=== PATIENT | male | born 1960 | race African-American/Black ===

== ENCOUNTER 2017-08-31 14:23 | Inpatient (IN) | payer OTHER ==
[2017-08-31 16:48] VITALS: BMI 22.6
--- NOTE | 2017-08-31 17:43 | HP ---
CIWA Score - CIWA Score Nausea/Vomitin Muscle Tremors: 2 Anxiety: 5 Agitation: 4-Moderately Restless Paroxysmal Sweats: 1-Minimal Palms Moist Orientation: 0-Oriented Tacttile Disturbances: 0-None Auditory Disturbances: 0-None Visual Disturbances: 0-None Headache: 1-Very Mild CIWA-Ar Total Score: 16 Admission ROS BHS - HPI Chief Complaint: ALCOHOL WITHDRAWAL SX Allergies/Adverse Reactions: Allergies Allergy/AdvReac Type Severity Reaction Status Date / Time No Known Allergies Allergy Verified 08/31/17 17:32 History of Present Illness: 57 Y/O AA/MALE WITH A HX OF ALCOHOL DEPENDENCE ON METHADONE MAINTENANCE SEEKING DETOX TX. PT'S FIRST TIME HERE. Exam Limitations: No Limitations - Ebola screening Have you traveled outside of the country in the last 21 days: No Have you had contact with anyone from an Ebola affected area: No Have you been sick,other than usual withdrawal symptoms: No Do you have a fever: No - Review of Systems Constitutional: Chills, Night Sweats, Changes in sleep, Unintentional Wgt. Loss EENT: reports: Blurred Vision, Tearing, Dental Problems (NO UPPER TEETH/LOWER JAWS. BOTTOM DENTURES IN PLACE.) Respiratory: reports: No Symptoms reported Cardiac: reports: Lightheadedness GI: reports: Diarrhea, Nausea, Vomiting : reports: No Symptoms Reported Musculoskeletal: reports: Back Pain, Joint Pain, Muscle Pain Integumentary: reports: No Symptoms Reported Neuro: reports: Headache, Tremors, Unsteady Gait, Dizziness Endocrine: reports: No Symptoms Reported Hematology: reports: No Symptoms Reported Psychiatric: reports: Orientated x3, Anxious Other Systems: Reviewed and Negative Patient History - Patient Medical History Hx Anemia: No Hx Asthma: No Hx Chronic Obstructive Pulmonary Disease (COPD): No Hx Cardiac Disorders: No Hx Hypertension: Yes (ENALAPRIL) Hx Hypercholesterolemia: No HX Cerebrovascular Accident: No Hx Seizures: Yes (WITHDRAWAL SEIZURES - LAST EPISODE A WK AGO) Hx Diabetes: No Hx Gastrointestinal Disorders: No Hx Genitourinary Disorders: No Hx Sexually Transmitted Disorders: No (DENIES) Hx Renal Disease (ESRD): No Hx Thyroid Disease: No Hx Human Immunodeficiency Virus (HIV): No (NEGATIVE HX) Hx Hepatitis C: Yes Hx Depression: Yes (AND ANXIETY) Hx Suicide Attempt: No (DENIES) Hx Schizophrenia: No - Patient Surgical History Past Surgical History: No Hx Neurologic Surgery: No Hx Cataract Extraction: No Hx Cardiac Surgery: No Hx Lung Surgery: No Hx Breast Surgery: No Hx Breast Biopsy: No Hx Abdominal Surgery: No Hx Appendectomy: No Hx Cholecystectomy: No Hx Genitourinary Surgery: No Hx Orthopedic Surgery: No Anesthesia Reaction: No - PPD History Previous Implant?: Yes (HX PPD+) Documented Results: Positive w/proof Implanted On Prior R Admission?: No Results: CXR TBD PPD to be Administered?: No - Reproductive History Patient is a Female of Child Bearing Age (11 -55 yrs old): No (MALE) - Smoking Cessation Smoking history: Current every day smoker Have you smoked in the past 12 months: Yes Aproximately how many cigarettes per day: 30 Hx Chewing Tobacco Use: No Initiated information on smoking cessation: Yes 'Breaking Loose' booklet given: 08/31/17 - Substance & Tx. History Hx Alcohol Use: Yes (VODKA/BEER) Hx Substance Use: Yes (HEROIN) Substance Use Type: Alcohol, Heroin Hx Substance Use Treatment: Yes (CURRENTLY IN [facility]) - Substances Abused Alcohol Route: Oral Frequency: Daily Amount used: LIQUOR- 3 PINTS, BEER- 2 SIX PACK Age of first use: 19 Date of Last Use: 08/31/17 Family Disease History - Family Disease History Family Disease History: Other: Father (ETOH DEPENDENT AND ), Mother (ETOH DEPENDENT AND ) Admission Physical Exam S - Vital Signs Vital Signs: Vital Signs - 24 hr 08/31/17 16:46 Temperature 96.8 F L Pulse Rate 63 Respiratory 18 Rate Blood Pressure 161/84 - Physical General Appearance: Yes: Moderate Distress, Irritable, Anxious, Other (TIRED LOOKING) HEENTM: Yes: EOMI, Normocephalic, KRISTAN, Pharynx Normal Respiratory: Yes: Chest Non-Tender, Lungs Clear, Normal Breath Sounds, No Respiratory Distress Neck: Yes: Supple, Trachea in good position Breast: Yes: Breast Exam Deferred Cardiology: Yes: Regular Rhythm, Regular Rate, S1, S2 Abdominal: Yes: Normal Bowel Sounds, Non Tender, Flat, Soft Genitourinary: Yes: Other Back: Yes: Within Normal Limits Musculoskeletal: Yes: full range of Motion, Gait Steady Extremities: Yes: Normal Range of Motion, Non-Tender Neurological: Yes: cloth roll winder II-XII NML intact, Fully Oriented, Alert, Motor Strength 5/5 Integumentary: Yes: Dry, Warm Lymphatic: Yes: Within Normal Limits - Diagnostic (1) Hepatitis C Current Visit: Yes Status: Acute (2) Nicotine dependence Current Visit: Yes Status: Acute Qualifiers: Nicotine product type: cigarettes Substance use status: in withdrawal Qualified Code(s): F17.213 - Nicotine dependence, cigarettes, with withdrawal (3) HTN (hypertension) Current Visit: Yes Status: Chronic Qualifiers: Hypertension type: essential hypertension Qualified Code(s): I10 - Essential (primary) hypertension (4) Methadone maintenance therapy patient Current Visit: Yes Status: Chronic (5) Alcohol related seizure Current Visit: Yes Status: Suspected Cleared for Admission [facility] - Detox or Rehab [facility] Level of Care: Medically Managed Detox Regimen/Protocol: Librium [facility] Breath Alcohol Content Breath Alcohol Content: 0.279 Urine Drug Screen - Results Drug Screen Negative: No Urine Drug Screen Results: OPI-Opiates, BZO-Benzodiazepines, MTD-Methadone
[2017-08-31] MEDS ORDERED: MAGNESIUM HYDROX 2400MG/30ML ORAL SUSPENSION 30 ML CUP PO PRN (17:57)
[2017-08-31] MEDS ORDERED: MAGNESIUM CITRATE 300 ML BOTTLE PO PRN (17:57)
[2017-08-31] MEDS ORDERED: MAG HYDROX/AL HYDROX/SIMETH 30 ML UNIT-DOSE CUP PO PRN (17:57)
[2017-08-31] MEDS ORDERED: MENTHOL/PHENOL 1 EACH UD MM PRN (17:57)
[2017-08-31] MEDS ORDERED: NICOTINE POLACRILEX 4 MG GUM BC PRN (17:57)
[2017-08-31] MEDS ORDERED: IBUPROFEN 400 MG TABLET (FP) PO PRN (17:57)
[2017-08-31] MEDS ORDERED: LOPERAMIDE HCL 2 MG CAPSULE PO PRN (17:57)
[2017-08-31] MEDS ORDERED: guaiFENesin/D-METHORPHAN HB 10 ML UNIT-DOSE CUPS PO PRN (17:57)
[2017-08-31] MEDS ORDERED: ACETAMINOPHEN 325 MG TABLET (FP) PO PRN (17:57)
[2017-08-31] MEDS ORDERED: P-EPHED 60MG/TRIPROLIDI 2.5MG TABLET PO PRN (17:57)
[2017-08-31] MEDS ORDERED: chlordiazePOXIDE HCL 25 MG CAPSULE PO PRN (17:57)
[2017-08-31] MEDS ORDERED: chlordiazePOXIDE HCL 25 MG CAPSULE PO ONE (18:45)
[2017-08-31] MEDS ORDERED: MELATONIN 5 MG TABLETS PO PRN (22:00)
[2017-08-31] MEDS: NICOTINE 21 MG/24 HOURS TOPICAL PATCH TD SCH (22:16)
[2017-08-31] MEDS: THIAMINE HCL 100 MG TABLET (FP) PO SCH (22:18)
[2017-08-31] MEDS: ENALAPRIL MALEATE 10 MG TABLET (FP) PO SCH (22:18)
[2017-08-31] MEDS: chlordiazePOXIDE HCL 25 MG CAPSULE PO SCH (22:19)
[2017-09-01] MEDS: chlordiazePOXIDE HCL 25 MG CAPSULE PO SCH ×4 (05:36→22:13)
[2017-09-01 06:18] LABS: URINE APPEARANCE CLOUDY; URINE BLOOD NEGATIVE (NEGATIVE); URINE COLOR AMBER; URINE GLUCOSE (UA) NEGATIVE (NEGATIVE); URINE KETONE NEGATIVE (NEGATIVE); URINE LEUK ESTERASE TRACE (NEGATIVE); URINE NITRITE NEGATIVE (NEGATIVE); URINE UROBILINOGEN 4.0 E.U/dl mg/dL (0.2-1.0)
[2017-09-01 06:34] LABS: URINE PROTEIN 1+ (NEGATIVE)
[2017-09-01 07:02] LABS: CALCIUM OXALATE CRYSTALS FEW /hpf (NONE SEEN); EPI CELLS RARE /HPF (FEW); URINE HYALINE CAST 1 /lpf; URINE MUCUS RARE
[2017-09-01] MEDS ORDERED: METHADONE HCL 10 MG TABLET PO SCH (07:15)
[2017-09-01 10:10] LABS: HEMATOCRIT 34.5 % (35.4-49); HEMOGLOBIN 11.5 GM/dL (11.7-16.9); MCH 30.3 pg (25.7-33.7); MCHC 33.3 g/dl (32.0-35.9); MEAN CELL VOLUME 90.9 fl (80-96); PLATELET COUNT 76 K/MM3 (134-434); RBC 3.79 M/mm3 (4.00-5.60); RDW 13.9 % (11.9-15.9); WHITE BLOOD COUNT 4.2 K/mm3 (4.0-10.0)
[2017-09-01 10:30] LABS: ALBUMIN 2.5 g/dl (3.4-5.0); ALK PHOS 78 U/L (45-117); ANION GAP 6 (8-16); BILIRUBIN,TOTAL 1.5 mg/dL (0.2-1.0); BLOOD UREA NITROGEN 6 mg/dL (7-18); CALCIUM 8.1 mg/dL (8.5-10.1); CHLORIDE 107 mmol/L (98-107); CO2 30 mmol/L (21-32); CREATININE 0.7 mg/dL (0.7-1.3); GLUCOSE,RANDOM 104 mg/dL (74-106); POTASSIUM 3.4 mmol/L (3.5-5.1); SGOT/AST 212 U/L (15-37); SGPT/ALT 87 U/L (12-78); SODIUM 143 mmol/L (136-145); TOT PROT 6.7 g/dl (6.4-8.2)
[2017-09-01] MEDS: PRENATAL VITAMINS W/ FOLIC ACID TABLET (FP) PO SCH (10:30)
[2017-09-01] MEDS ORDERED: METHADONE HCL 10 MG TABLET ONE (10:31)
[2017-09-01] MEDS: PANTOPRAZOLE 40 MG TABLET (FP) PO SCH (10:32)
[2017-09-01] MEDS ORDERED: METHADONE HCL 40 MG DISPERSABLE TABLET ONE (10:32)
[2017-09-01] MEDS: NICOTINE 21 MG/24 HOURS TOPICAL PATCH TD SCH (10:33)
[2017-09-01] MEDS: METHADONE 40 MG, METHADONE 10 MG PO SCH (10:33)
[2017-09-01] MEDS: ENALAPRIL MALEATE 10 MG TABLET (FP) PO SCH (10:33)
--- NOTE | 2017-09-01 11:31 | EKG ---
Test Reason : Blood Pressure : / mmHG Vent. Rate : 063 BPM Atrial Rate : 063 BPM P-R Int : 148 ms QRS Dur : 088 ms QT Int : 420 ms P-R-T Axes : 052 -14 -03 degrees QTc Int : 429 ms NORMAL SINUS RHYTHM VOLTAGE CRITERIA FOR LEFT VENTRICULAR HYPERTROPHY ABNORMAL ECG NO PREVIOUS ECGS AVAILABLE Confirmed by TALA MILLS MD ([id number]) on 09/01/2017 11:31:36 AM Referred By: Confirmed By:TALA MILLS MD
--- NOTE | 2017-09-01 13:06 | PN ---
[facility] CIWA - CIWA Score Nausea/Vomitin-No Nausea/No Vomiting Muscle Tremors: 4-Moderate,w/Arms Extend Anxiety: 4-Mod. Anxious/Guarded Agitation: 3 Paroxysmal Sweats: 1-Minimal Palms Moist Orientation: 0-Oriented Tacttile Disturbances: 0-None Auditory Disturbances: 0-None Visual Disturbances: 0-None Headache: 0-None Present CIWA-Ar Total Score: 12 S Progress Note (SOAP) Subjective: ANXIETY,TREMORS,SWEATS,INTERMITTENT SLEEP, Objective: 09/01/17 13:05 Vital Signs Temperature 98.3 F 09/01/17 09:50 Pulse Rate 87 09/01/17 10:30 Respiratory Rate 18 09/01/17 10:30 Blood Pressure 135/77 09/01/17 09:50 O2 Sat by Pulse Oximetry (%) Laboratory Last Values WBC 4.2 K/mm3 (4.0-10.0) 09/01/17 07:30 RBC 3.79 M/mm3 (4.00-5.60) L 09/01/17 07:30 Hgb 11.5 GM/dL (11.7-16.9) L 09/01/17 07:30 Hct 34.5 % (35.4-49) L 09/01/17 07:30 MCV 90.9 fl (80-96) 09/01/17 07:30 MCH 30.3 pg (25.7-33.7) 09/01/17 07:30 MCHC 33.3 g/dl (32.0-35.9) 09/01/17 07:30 RDW 13.9 % (11.9-15.9) 09/01/17 07:30 Plt Count 76 K/MM3 (134-434) L D 09/01/17 07:30 MPV 12.0 fl (7.5-11.1) H 09/01/17 07:30 Manual Slide Review 09/01/17 07:30 Platelet Comment No clotting detected 09/01/17 07:30 Sodium 143 mmol/L (136-145) 09/01/17 07:30 Potassium 3.4 mmol/L (3.5-5.1) L 09/01/17 07:30 Chloride 107 mmol/L (98-107) 09/01/17 07:30 Carbon Dioxide 30 mmol/L (21-32) 09/01/17 07:30 Anion Gap 6 (8-16) L 09/01/17 07:30 BUN 6 mg/dL (7-18) L D 09/01/17 07:30 Creatinine 0.7 mg/dL (0.7-1.3) 09/01/17 07:30 Creat Clearance w eGFR > 60 (>60) 09/01/17 07:30 Random Glucose 104 mg/dL (74-106) D 09/01/17 07:30 Calcium 8.1 mg/dL (8.5-10.1) L 09/01/17 07:30 Total Bilirubin 1.5 mg/dL (0.2-1.0) H D 09/01/17 07:30 AST 212 U/L (15-37) H 09/01/17 07:30 ALT 87 U/L (12-78) H 09/01/17 07:30 Alkaline Phosphatase 78 U/L (45-117) D 09/01/17 07:30 Total Protein 6.7 g/dl (6.4-8.2) 09/01/17 07:30 Albumin 2.5 g/dl (3.4-5.0) L 09/01/17 07:30 Urine Color Beth 08/31/17 22:22 Urine Appearance Cloudy 08/31/17 22:22 Urine pH 6.0 (5.0-8.0) 08/31/17 22:22 Ur Specific [place] 1.024 (1.001-1.035) 08/31/17 22:22 Urine Protein 1+ (NEGATIVE) H 08/31/17 22:22 Urine Glucose (UA) Negative (NEGATIVE) 08/31/17 22:22 Urine Ketones Negative (NEGATIVE) 08/31/17 22:22 Urine Blood Negative (NEGATIVE) 08/31/17 22:22 Urine Nitrite Negative (NEGATIVE) 08/31/17 22:22 Urine Bilirubin 2.0 (<2.0 mg/dL) 08/31/17 22:22 Urine Urobilinogen 4.0 e.u/dl mg/dL (0.2-1.0) 08/31/17 22:22 Ur Leukocyte Esterase Trace (NEGATIVE) 08/31/17 22:22 Urine WBC (Auto) 10 /hpf (3-5) 08/31/17 22:22 Urine RBC (Auto) 5 /hpf (0-3) 08/31/17 22:22 Ur Epithelial Cells Rare /HPF (FEW) 08/31/17 22:22 Calcium Oxalate Crystal Few /hpf (NONE SEEN) 08/31/17 22:22 Hyaline Casts 1 /lpf 08/31/17 22:22 Urine Mucus Rare 08/31/17 22:22 RPR Titer Nonreactive (NONREACTIVE) 09/01/17 07:30 Assessment: 09/01/17 13:05 WITHDRAWAL SX Plan: CONTINUE DETOX INCREASE PO FLUIDS.
--- NOTE | 2017-09-01 16:04 | CONSULT ---
[facility] Psychiatric Consult - Data Date of interview: 09/01/17 Admission source: [facility] Identifying data: Readmission to [facility] for this 57 y/o AA male seeking detox treatment on for alcohol and heroin dependence.Patient is ,a father of six,homeless,unemployed and supported on food stamps. Substance Abuse History: Condfirmed by patient in this session.Details in current [facility] report : Smoking history: Current every day smoker. Have you smoked in the past 12 months: Yes. Aproximately how many cigarettes per day: 30. Hx Chewing Tobacco Use: No. Initiated information on smoking cessation: Yes. 'Breaking Loose' booklet given: 08/31/17. - Substance & Tx. History. Hx Alcohol Use: Yes (VODKA/BEER). Hx Substance Use: Yes (HEROIN). Substance Use Type: Alcohol, Heroin. Hx Substance Use Treatment: Yes (CURRENTLY IN [facility] - Substances Abused. Alcohol. Route: Oral. Frequency: Daily. Amount used: LIQUOR- 3 PINTS, BEER- 2 SIX PACK. Age of first use: 19. Date of Last Use: 08/31/17 Medical History: Hepatitis C,hypertension,GERD and a history of positive PPD ( treated). Psychiatric History: Diagnosed with Bipolar Disorder (self-report).Patient endorses a history of one psychiatric hospitalization (2017).Name of facility not recalled.Prescribed psychotropic medications but the patient is unable to disclose the name of the medication (s).Mr Manuel does,however, recall that he gets his outpatient psychiatric services at the [facility] in the [place].Denies history of suicide attempts.Currently on [facility] ([facility]. Physical/Sexual Abuse/Trauma History: Patient denies. Additional Comment: Urine Drug Screen Results: OPI-Opiates, BZO-Benzodiazepines , MTD-Methadone.Noted. Mental Status Exam - Mental Status Exam Alert and Oriented to: Time, Place, Person Cognitive Function: Grossly Intact Patient Appearance: Well Groomed Mood: Nervous, Withdrawn, Anxious Affect: Mood Congruent Patient Behavior: Fatigued, Cooperative (gives approximate answers) Speech Pattern: Clear Voice Loudness: Normal Thought Process: Goal Oriented Thought Disorder: Not Present Hallucinations: Denies Suicidal Ideation: Denies Homicidal Ideation: Denies Insight/Judgement: Poor Sleep: Well Appetite: Good Muscle strength/Tone: Normal Gait/Station: Normal Psychiatric Findings - Problem List ([place] 1, 2,3) (1) Opioid dependence on agonist therapy Current Visit: Yes Status: Acute (2) Alcohol dependence Current Visit: Yes Status: Acute (3) Nicotine dependence Current Visit: Yes Status: Acute Qualifiers: Nicotine product type: cigarettes Substance use status: in withdrawal Qualified Code(s): F17.213 - Nicotine dependence, cigarettes, with withdrawal (4) Bipolar disorder Current Visit: Yes Status: Chronic Comment: As per self-report.Questionable adherence to psychiatric OPD care. - Initial Treatment Plan Initial Treatment Plan: Psychoeducation.Detoxification treatment in progress.Review of pharmacy claims yields evidence of refill for risperdal 2 mg/ hs (05/04/17) at the [facility].Patient made aware of this finding.Agrees to resume risperdal.Will start with risperdal 1 mg po hs.Patient is made aware of risk of abnormal involuntary movements,dyskinesias,dystonias,sexual dysfunction (impotence),galactorrhea,gynecomastia and cardiovascular adverse events.No history of side effects from risperdal,as per self-report.Consent ( verbal) given for implementation of this careplan.Observation.
[2017-09-01] MEDS: THIAMINE HCL 100 MG TABLET (FP) PO SCH (22:13)
[2017-09-01] MEDS: risperiDONE 1 MG TABLET (FP) PO SCH (22:13)
[2017-09-02] MEDS: chlordiazePOXIDE HCL 25 MG CAPSULE PO SCH ×3 (05:17→18:21)
[2017-09-02] MEDS ORDERED: METHADONE HCL 10 MG TABLET ONE (07:50)
[2017-09-02] MEDS ORDERED: METHADONE HCL 40 MG DISPERSABLE TABLET ONE (07:51)
[2017-09-02] MEDS: METHADONE 40 MG, METHADONE 10 MG PO SCH (07:54)
[2017-09-02] MEDS: PANTOPRAZOLE 40 MG TABLET (FP) PO SCH (10:45)
[2017-09-02] MEDS: PRENATAL VITAMINS W/ FOLIC ACID TABLET (FP) PO SCH (10:45)
[2017-09-02] MEDS: ENALAPRIL MALEATE 10 MG TABLET (FP) PO SCH ×3 (10:45→22:05)
[2017-09-02] MEDS: NICOTINE 21 MG/24 HOURS TOPICAL PATCH TD SCH (10:45)
--- NOTE | 2017-09-02 13:40 | PN ---
[facility] CIWA - CIWA Score Nausea/Vomitin-No Nausea/No Vomiting Muscle Tremors: 4-Moderate,w/Arms Extend Anxiety: 4-Mod. Anxious/Guarded Agitation: 4-Moderately Restless Paroxysmal Sweats: 1-Minimal Palms Moist Orientation: 0-Oriented Tacttile Disturbances: 0-None Auditory Disturbances: 0-None Visual Disturbances: 0-None Headache: 0-None Present CIWA-Ar Total Score: 13 S Progress Note (SOAP) Subjective: ANXIETY,IRRITABILITY,SWEATS,CHILLS, FATIGUE. Objective: 09/02/17 13:42 Vital Signs 09/02/17 09/02/17 09/02/17 05:53 09:04 13:33 Temperature 98 F 95.5 F L 97.7 F Pulse Rate 71 74 68 Respiratory 18 18 18 Rate Blood Pressure 152/98 151/95 152/94 Laboratory Last Values WBC 4.2 K/mm3 (4.0-10.0) 09/01/17 07:30 RBC 3.79 M/mm3 (4.00-5.60) L 09/01/17 07:30 Hgb 11.5 GM/dL (11.7-16.9) L 09/01/17 07:30 Hct 34.5 % (35.4-49) L 09/01/17 07:30 MCV 90.9 fl (80-96) 09/01/17 07:30 MCH 30.3 pg (25.7-33.7) 09/01/17 07:30 MCHC 33.3 g/dl (32.0-35.9) 09/01/17 07:30 RDW 13.9 % (11.9-15.9) 09/01/17 07:30 Plt Count 76 K/MM3 (134-434) L D 09/01/17 07:30 MPV 12.0 fl (7.5-11.1) H 09/01/17 07:30 Manual Slide Review 09/01/17 07:30 Platelet Comment No clotting detected 09/01/17 07:30 Sodium 143 mmol/L (136-145) 09/01/17 07:30 Potassium 3.4 mmol/L (3.5-5.1) L 09/01/17 07:30 Chloride 107 mmol/L (98-107) 09/01/17 07:30 Carbon Dioxide 30 mmol/L (21-32) 09/01/17 07:30 Anion Gap 6 (8-16) L 09/01/17 07:30 BUN 6 mg/dL (7-18) L D 09/01/17 07:30 Creatinine 0.7 mg/dL (0.7-1.3) 09/01/17 07:30 Creat Clearance w eGFR > 60 (>60) 09/01/17 07:30 Random Glucose 104 mg/dL (74-106) D 09/01/17 07:30 Calcium 8.1 mg/dL (8.5-10.1) L 09/01/17 07:30 Total Bilirubin 1.5 mg/dL (0.2-1.0) H D 09/01/17 07:30 AST 212 U/L (15-37) H 09/01/17 07:30 ALT 87 U/L (12-78) H 09/01/17 07:30 Alkaline Phosphatase 78 U/L (45-117) D 09/01/17 07:30 Total Protein 6.7 g/dl (6.4-8.2) 09/01/17 07:30 Albumin 2.5 g/dl (3.4-5.0) L 09/01/17 07:30 Urine Color Beth 08/31/17 22:22 Urine Appearance Cloudy 08/31/17 22:22 Urine pH 6.0 (5.0-8.0) 08/31/17 22:22 Ur Specific [place] 1.024 (1.001-1.035) 08/31/17 22:22 Urine Protein 1+ (NEGATIVE) H 08/31/17 22:22 Urine Glucose (UA) Negative (NEGATIVE) 08/31/17 22:22 Urine Ketones Negative (NEGATIVE) 08/31/17 22:22 Urine Blood Negative (NEGATIVE) 08/31/17 22:22 Urine Nitrite Negative (NEGATIVE) 08/31/17 22: Urine Bilirubin 2.0 (<2.0 mg/dL) 08/31/17 22:22 Urine Urobilinogen 4.0 e.u/dl mg/dL (0.2-1.0) 08/31/17 22:22 Ur Leukocyte Esterase Trace (NEGATIVE) 08/31/17 22:22 Urine WBC (Auto) 10 /hpf (3-5) 08/31/17 22:22 Urine RBC (Auto) 5 /hpf (0-3) 08/31/17 22:22 Ur Epithelial Cells Rare /HPF (FEW) 08/31/17 22:22 Calcium Oxalate Crystal Few /hpf (NONE SEEN) 08/31/17 22:22 Hyaline Casts 1 /lpf 08/31/17 22:22 Urine Mucus Rare 08/31/17 22:22 RPR Titer Nonreactive (NONREACTIVE) 09/01/17 07:30 09/02/17 13:48 Assessment: 09/02/17 13:48 WITHDRAWAL SX Plan: CONTINUE DETOX CLONIDINE 0.1 MG PO NOW KLC LIQ 20 MEQ PO NOW THEN BID X 3 DAYS
[2017-09-02] MEDS ORDERED: POTASSIUM CHLORIDE ORAL LIQUID 20 MEQ/15 ML PO ONE (14:00)
[2017-09-02] MEDS ORDERED: cloNIDine HCL 0.1 MG TABLET PO ONE (14:00)
[2017-09-02] MEDS ORDERED: ENALAPRIL MALEATE 10 MG TABLET (FP) PO SCH (22:00)
[2017-09-02] MEDS: THIAMINE HCL 100 MG TABLET (FP) PO SCH (22:05)
[2017-09-02] MEDS: risperiDONE 1 MG TABLET (FP) PO SCH (22:05)
[2017-09-02] MEDS: chlordiazePOXIDE 5 MG CAPSULE PO SCH (22:05)
[2017-09-02] MEDS: POTASSIUM CHLORIDE ORAL LIQUID 20 MEQ/15 ML PO SCH (22:06)
[2017-09-03] MEDS ORDERED: METHADONE HCL 10 MG TABLET ONE (02:38)
[2017-09-03] MEDS ORDERED: METHADONE HCL 40 MG DISPERSABLE TABLET ONE (02:39)
[2017-09-03] MEDS ORDERED: cloNIDine HCL 0.1 MG TABLET PO ONE (06:41)
[2017-09-03] MEDS: METHADONE 40 MG, METHADONE 10 MG PO SCH (07:05)
[2017-09-03] MEDS: chlordiazePOXIDE 5 MG CAPSULE PO SCH ×2 (07:06→10:24)
[2017-09-03] MEDS: PANTOPRAZOLE 40 MG TABLET (FP) PO SCH (10:23)
[2017-09-03] MEDS: POTASSIUM CHLORIDE ORAL LIQUID 20 MEQ/15 ML PO SCH ×2 (10:23→22:10)
[2017-09-03] MEDS: PRENATAL VITAMINS W/ FOLIC ACID TABLET (FP) PO SCH (10:23)
[2017-09-03] MEDS: ENALAPRIL MALEATE 10 MG TABLET (FP) PO SCH ×2 (10:23→22:11)
[2017-09-03] MEDS: NICOTINE 21 MG/24 HOURS TOPICAL PATCH TD SCH (10:24)
--- NOTE | 2017-09-03 11:14 | PN ---
[facility] Progress Note (SOAP) Subjective: Anxious, Chills, Fatigue. Objective: PATIENT A & O X 3, OBSERVED AMBULATING ON UNIT. NO ACUTE DISTRESS. PATIENT DENIES CHEST PAIN. 09/03/17 11:09 Vital Signs Temperature 96.8 F L 09/03/17 09:09 Pulse Rate 115 H 09/03/17 09:09 Respiratory Rate 18 09/03/17 09:09 Blood Pressure 98/69 09/03/17 09:09 O2 Sat by Pulse Oximetry (%) Laboratory Tests 08/31/17 09/01/17 09/01/17 22:22 07:30 07:30 WBC 4.2 RBC 3.79 L Hgb 11.5 L Hct 34.5 L MCV 90.9 MCH 30.3 MCHC 33.3 RDW 13.9 Plt Count 76 L D MPV 12.0 H Manual Slide Review Platelet Comment No clotting detected Sodium 143 Potassium 3.4 L Chloride 107 Carbon Dioxide 30 Anion Gap 6 L BUN 6 L D Creatinine 0.7 Creat Clearance w eGFR > 60 Random Glucose 104 D Calcium 8.1 L Total Bilirubin 1.5 H D AST 212 H ALT 87 H Alkaline Phosphatase 78 D Total Protein 6.7 Albumin 2.5 L Urine Color Beth Urine Appearance Cloudy Urine pH 6.0 Ur Specific [place] 1.024 Urine Protein 1+ H Urine Glucose (UA) Negative Urine Ketones Negative Urine Blood Negative Urine Nitrite Negative Urine Bilirubin 2.0 Urine Urobilinogen 4.0 e.u/dl Ur Leukocyte Esterase Trace Urine WBC (Auto) 10 Urine RBC (Auto) 5 Ur Epithelial Cells Rare Calcium Oxalate Crystal Few Hyaline Casts 1 Urine Mucus Rare RPR Titer 09/01/17 07:30 WBC RBC Hgb Hct MCV MCH MCHC RDW Plt Count MPV Manual Slide Review Platelet Comment Sodium Potassium Chloride Carbon Dioxide Anion Gap BUN Creatinine Creat Clearance w eGFR Random Glucose Calcium Total Bilirubin AST ALT Alkaline Phosphatase Total Protein Albumin Urine Color Urine Appearance Urine pH Ur Specific [place] Urine Protein Urine Glucose (UA) Urine Ketones Urine Blood Urine Nitrite Urine Bilirubin Urine Urobilinogen Ur Leukocyte Esterase Urine WBC (Auto) Urine RBC (Auto) Ur Epithelial Cells Calcium Oxalate Crystal Hyaline Casts Urine Mucus RPR Titer Nonreactive LABS NOTED. Assessment: 09/03/17 11:10 WITHDRAWAL SYMPTOMS. HYPOKALEMIA. 09/03/17 11:12 Plan: CONTINUE DETOX. INCREASE DAILY PO FLUID INTAKE. CONTINUE K-DUR.
--- NOTE | 2017-09-03 15:33 | PN ---
[facility] Progress Note Note: Received report from Gen Patel RN that patient's BP is low (110/49) and that patient appears drowsy on unit. Remaining two doses of Librium for today HELD. Detox Librium doses to be resumed tomorrow AM pending evaluation by [employer] APPLIANCE [employer]SEMBLY SUPERVISOR / RN. Yocasta Montana NP
--- NOTE | 2017-09-03 17:06 | PN ---
[facility] Progress Note Note: Psychiatry Attending's note : Made aware of patient's sedated state. Chart reviewed.Patient examined at bedside. Mr Manuel is noted as slow,awake and conversant. Fully aware of his surroundings.Found sitting in bed. Quietly drinking some juice.Moves independently.Task-oriented. Patient does admit to " some dizziness." Appears well-related. Exhibits relevant,clear and coherent speech.Moves around his room. Gait improving.Steadier.Vitals have also improved (see 3 pm report).
[2017-09-03] MEDS: THIAMINE HCL 100 MG TABLET (FP) PO SCH (22:10)
[2017-09-04] MEDS ORDERED: METHADONE HCL 40 MG DISPERSABLE TABLET ONE (04:35)
[2017-09-04] MEDS ORDERED: METHADONE HCL 10 MG TABLET ONE (04:35)
[2017-09-04] MEDS: METHADONE 40 MG, METHADONE 10 MG PO SCH (05:20)
[2017-09-04] MEDS: chlordiazePOXIDE HCL 10 MG CAPSULE PO SCH ×4 (05:20→22:50)
[2017-09-04] MEDS: ENALAPRIL MALEATE 10 MG TABLET (FP) PO SCH ×2 (10:19→22:50)
[2017-09-04] MEDS: PANTOPRAZOLE 40 MG TABLET (FP) PO SCH (10:19)
[2017-09-04] MEDS: PRENATAL VITAMINS W/ FOLIC ACID TABLET (FP) PO SCH (10:19)
[2017-09-04] MEDS: NICOTINE 21 MG/24 HOURS TOPICAL PATCH TD SCH (10:19)
[2017-09-04] MEDS: POTASSIUM CHLORIDE ORAL LIQUID 20 MEQ/15 ML PO SCH ×2 (12:39→22:50)
--- NOTE | 2017-09-04 14:59 | PN ---
[facility] Progress Note (SOAP) Subjective: Fatigue, Sweating. Objective: PATIENT A & O X 3, OBSERVED AMBULATING ON UNIT. NO ACUTE DISTRESS. 09/04/17 14:57 Vital Signs Temperature 98.2 F 09/04/17 14:45 Pulse Rate 76 09/04/17 14:45 Respiratory Rate 18 09/04/17 14:45 Blood Pressure 118/74 09/04/17 14:45 O2 Sat by Pulse Oximetry (%) Laboratory Tests 08/31/17 09/01/17 09/01/17 22:22 07:30 07:30 WBC 4.2 RBC 3.79 L Hgb 11.5 L Hct 34.5 L MCV 90.9 MCH 30.3 MCHC 33.3 RDW 13.9 Plt Count 76 L D MPV 12.0 H Manual Slide Review Platelet Comment No clotting detected Sodium 143 Potassium 3.4 L Chloride 107 Carbon Dioxide 30 Anion Gap 6 L BUN 6 L D Creatinine 0.7 Creat Clearance w eGFR > 60 Random Glucose 104 D Calcium 8.1 L Total Bilirubin 1.5 H D AST 212 H ALT 87 H Alkaline Phosphatase 78 D Total Protein 6.7 Albumin 2.5 L Urine Color Beth Urine Appearance Cloudy Urine pH 6.0 Ur Specific [place] 1.024 Urine Protein 1+ H Urine Glucose (UA) Negative Urine Ketones Negative Urine Blood Negative Urine Nitrite Negative Urine Bilirubin 2.0 Urine Urobilinogen 4.0 e.u/dl Ur Leukocyte Esterase Trace Urine WBC (Auto) 10 Urine RBC (Auto) 5 Ur Epithelial Cells Rare Calcium Oxalate Crystal Few Hyaline Casts 1 Urine Mucus Rare RPR Titer 09/01/17 07:30 WBC RBC Hgb Hct MCV MCH MCHC RDW Plt Count MPV Manual Slide Review Platelet Comment Sodium Potassium Chloride Carbon Dioxide Anion Gap BUN Creatinine Creat Clearance w eGFR Random Glucose Calcium Total Bilirubin AST ALT Alkaline Phosphatase Total Protein Albumin Urine Color Urine Appearance Urine pH Ur Specific [place] Urine Protein Urine Glucose (UA) Urine Ketones Urine Blood Urine Nitrite Urine Bilirubin Urine Urobilinogen Ur Leukocyte Esterase Urine WBC (Auto) Urine RBC (Auto) Ur Epithelial Cells Calcium Oxalate Crystal Hyaline Casts Urine Mucus RPR Titer Nonreactive LABS NOTED. Assessment: 09/04/17 14:57 WITHDRAWAL SYMPTOMS. Plan: CONTINUE DETOX. INCREASE DAILY PO FLUID INTAKE. PATIENT SCHEDULED FOR D/C TOMORROW.
[2017-09-04] MEDS: THIAMINE HCL 100 MG TABLET (FP) PO SCH (22:50)
[2017-09-05] MEDS ORDERED: METHADONE HCL 40 MG DISPERSABLE TABLET ONE (04:32)
[2017-09-05] MEDS ORDERED: METHADONE HCL 10 MG TABLET ONE (04:32)
[2017-09-05] MEDS: METHADONE 40 MG, METHADONE 10 MG PO SCH (05:44)
[2017-09-05 06:44] VITALS: BP 151/86; PULSE 68; TEMP 97.8
--- NOTE | 2017-09-05 21:09 | PN ---
[facility] Progress Note (SOAP) Subjective: Patient denies current Detox symptoms and reports that he feels well overall. Objective: PATIENT A & O X 3, OBSERVED AMBULATING ON UNIT. NO ACUTE DISTRESS. 09/05/17 21:08 Vital Signs Temperature 97.8 F 09/05/17 06:43 Pulse Rate 68 09/05/17 06:43 Respiratory Rate 16 09/05/17 06:43 Blood Pressure 151/86 09/05/17 06:43 O2 Sat by Pulse Oximetry (%) Laboratory Tests 08/31/17 09/01/17 09/01/17 22:22 07:30 07:30 WBC 4.2 RBC 3.79 L Hgb 11.5 L Hct 34.5 L MCV 90.9 MCH 30.3 MCHC 33.3 RDW 13.9 Plt Count 76 L D MPV 12.0 H Manual Slide Review Platelet Comment No clotting detected Sodium 143 Potassium 3.4 L Chloride 107 Carbon Dioxide 30 Anion Gap 6 L BUN 6 L D Creatinine 0.7 Creat Clearance w eGFR > 60 Random Glucose 104 D Calcium 8.1 L Total Bilirubin 1.5 H D AST 212 H ALT 87 H Alkaline Phosphatase 78 D Total Protein 6.7 Albumin 2.5 L Urine Color Beth Urine Appearance Cloudy Urine pH 6.0 Ur Specific [place] 1.024 Urine Protein 1+ H Urine Glucose (UA) Negative Urine Ketones Negative Urine Blood Negative Urine Nitrite Negative Urine Bilirubin 2.0 Urine Urobilinogen 4.0 e.u/dl Ur Leukocyte Esterase Trace Urine WBC (Auto) 10 Urine RBC (Auto) 5 Ur Epithelial Cells Rare Calcium Oxalate Crystal Few Hyaline Casts 1 Urine Mucus Rare RPR Titer 09/01/17 07:30 WBC RBC Hgb Hct MCV MCH MCHC RDW Plt Count MPV Manual Slide Review Platelet Comment Sodium Potassium Chloride Carbon Dioxide Anion Gap BUN Creatinine Creat Clearance w eGFR Random Glucose Calcium Total Bilirubin AST ALT Alkaline Phosphatase Total Protein Albumin Urine Color Urine Appearance Urine pH Ur Specific [place] Urine Protein Urine Glucose (UA) Urine Ketones Urine Blood Urine Nitrite Urine Bilirubin Urine Urobilinogen Ur Leukocyte Esterase Urine WBC (Auto) Urine RBC (Auto) Ur Epithelial Cells Calcium Oxalate Crystal Hyaline Casts Urine Mucus RPR Titer Nonreactive LABS NOTED. Assessment: 09/05/17 21:08 COMPLETION OF DETOX REGIMEN. Plan: PATIENT SCHEDULED FOR DISCHARGE FROM DETOX UNIT TODAY.
--- NOTE | 2017-09-05 21:15 | DS ---
[facility] Detox Discharge Summary Admission Date: 08/31/17 Discharge Date: 09/05/17 - History Present History: Alcohol Dependence, Opioid Dependence, MMTP Additional Comments: PATIENT WILL RETURN TO [facility] ([place] FOR AFTERCARE. PATIENT WAS DISCHARGED FROM DETOX UNIT IN STABLE MEDICAL CONDITION. Pertinent Past History: History of Seizures (due to Withdrawal), HTN, Hep C, Nicotine Dependence, MMTP, Hypokalemia, Depression, Bipolar Disorder. - Physical Exam Results Vital Signs: Vital Signs Temperature 97.8 F 09/05/17 06:43 Pulse Rate 68 09/05/17 06:43 Respiratory Rate 16 09/05/17 06:43 Blood Pressure 151/86 09/05/17 06:43 O2 Sat by Pulse Oximetry (%) Pertinent Admission Physical Exam Findings: WITHDRAWAL SYMPTOMS. Laboratory Tests 08/31/17 09/01/17 09/01/17 22:22 07:30 07:30 WBC 4.2 RBC 3.79 L Hgb 11.5 L Hct 34.5 L MCV 90.9 MCH 30.3 MCHC 33.3 RDW 13.9 Plt Count 76 L D MPV 12.0 H Manual Slide Review Platelet Comment No clotting detected Sodium 143 Potassium 3.4 L Chloride 107 Carbon Dioxide 30 Anion Gap 6 L BUN 6 L D Creatinine 0.7 Creat Clearance w eGFR > 60 Random Glucose 104 D Calcium 8.1 L Total Bilirubin 1.5 H D AST 212 H ALT 87 H Alkaline Phosphatase 78 D Total Protein 6.7 Albumin 2.5 L Urine Color Beth Urine Appearance Cloudy Urine pH 6.0 Ur Specific [place] 1.024 Urine Protein 1+ H Urine Glucose (UA) Negative Urine Ketones Negative Urine Blood Negative Urine Nitrite Negative Urine Bilirubin 2.0 Urine Urobilinogen 4.0 e.u/dl Ur Leukocyte Esterase Trace Urine WBC (Auto) 10 Urine RBC (Auto) 5 Ur Epithelial Cells Rare Calcium Oxalate Crystal Few Hyaline Casts 1 Urine Mucus Rare RPR Titer 09/01/17 07:30 WBC RBC Hgb Hct MCV MCH MCHC RDW Plt Count MPV Manual Slide Review Platelet Comment Sodium Potassium Chloride Carbon Dioxide Anion Gap BUN Creatinine Creat Clearance w eGFR Random Glucose Calcium Total Bilirubin AST ALT Alkaline Phosphatase Total Protein Albumin Urine Color Urine Appearance Urine pH Ur Specific [place] Urine Protein Urine Glucose (UA) Urine Ketones Urine Blood Urine Nitrite Urine Bilirubin Urine Urobilinogen Ur Leukocyte Esterase Urine WBC (Auto) Urine RBC (Auto) Ur Epithelial Cells Calcium Oxalate Crystal Hyaline Casts Urine Mucus RPR Titer Nonreactive LABS NOTED. - Treatment Hospital Course: Detox Protocol Followed, Detoxed Safely, Responded well, Discharged Condition Good Patient has Accepted a Rehab Referral to: PT RETURNING TO [facility] ([place] FOR AFTERCARE. - Medication Discharge Medications: Ambulatory Orders Enalapril Maleate [Vasotec -] 10 mg PO DAILY 04/30/14 Lisinopril [Prinivil -] 10 mg PO DAILY 04/30/14 Omeprazole [Prilosec (RX)] 40 mg PO DAILY 04/30/14 - Diagnosis (1) Hepatitis C Status: Acute Qualifiers: Viral hepatitis chronicity: chronic Hepatic coma status: without hepatic coma Qualified Code(s): B18.2 - Chronic viral hepatitis C (2) Hypokalemia Status: Acute (3) Nicotine dependence Status: Acute Qualifiers: Nicotine product type: cigarettes Substance use status: in withdrawal Qualified Code(s): F17.213 - Nicotine dependence, cigarettes, with withdrawal (4) HTN (hypertension) Status: Chronic Qualifiers: Hypertension type: essential hypertension Qualified Code(s): I10 - Essential (primary) hypertension (5) Methadone maintenance therapy patient Status: Chronic (6) Alcohol related seizure Status: Suspected (7) Alcohol dependence Status: Acute Qualifiers: Substance use status: uncomplicated Qualified Code(s): F10.20 - Alcohol dependence, uncomplicated (8) Opioid dependence on agonist therapy Status: Acute (9) Bipolar disorder Status: Chronic Qualifiers: Active/Remission status: remission status unspecified Qualified Code(s): F31.9 - Bipolar disorder, unspecified - AMA Did Patient Leave Against Medical Advice: No
== END 2017-09-05 10:10 | disposition home or self-care (01) | DRG 773 ==
LOC: YASAS 14:23 → Y3N 17:57
PROVIDERS: ADMIT Internal Medicine; ATTEND Internal Medicine
PROC: HZ2ZZZZ Detoxification Services for Substance Abuse Treatment (ICD-10-PCS; principal; 2017-08-31)
DX: F10.230 Alcohol dependence with withdrawal, uncomplicated (principal); F11.20 Opioid dependence, uncomplicated; F17.213 Nicotine dependence, cigarettes, with withdrawal; F31.9 Bipolar disorder, unspecified; I10 Essential (primary) hypertension; B18.2 Chronic viral hepatitis C; E87.6 Hypokalemia; G40.89 Other seizures
CPT/HCPCS: 36415; 71046-TC-FY; 80053; 81003; 81015; 85027; 86593; 93005; 93010; J0735; J2794

== ENCOUNTER 2017-09-06 14:52 | Inpatient (IN) | payer OTHER ==
[2017-09-06 17:13] VITALS: BMI 22.8
--- NOTE | 2017-09-06 21:48 | HP ---
[facility] Rehab Assess/Revision - Admission History Admitted to Rehab from: [facility] Date of Admission to Rehab: 09/06/2017 - Vital signs Vital Signs: Vital Signs Period Temp Pulse Resp BP Sys/Ledbetter Pulse Ox Last 24 Hr 96 F 74 18 153/92 - Findings Detox History & Physical reviewed: Yes Concur with findings: Yes Comments/Additional Findings: CLIENT DC YESTERDAY AND NOW RETURNS FOR REHAB. INNA 0.032. MEDICALLY STABLE AND CLEARED FOR REHAB
[2017-09-06] MEDS ORDERED: MAGNESIUM CITRATE 300 ML BOTTLE PO PRN (21:53)
[2017-09-06] MEDS ORDERED: MAG HYDROX/AL HYDROX/SIMETH 30 ML UNIT-DOSE CUP PO PRN (21:53)
[2017-09-06] MEDS ORDERED: IBUPROFEN 400 MG TABLET (FP) PO PRN (21:53)
[2017-09-06] MEDS ORDERED: ACETAMINOPHEN 325 MG TABLET (FP) PO PRN (21:53)
[2017-09-06] MEDS ORDERED: guaiFENesin/D-METHORPHAN HB 10 ML UNIT-DOSE CUPS PO PRN (21:53)
[2017-09-06] MEDS ORDERED: NICOTINE POLACRILEX 2 MG GUM BUC PRN (21:53)
[2017-09-06] MEDS ORDERED: LOPERAMIDE HCL 2 MG CAPSULE PO PRN (21:53)
[2017-09-06] MEDS ORDERED: hydrOXYzine PAMOATE 50 MG CAPSULE (FP) PO PRN (21:53)
[2017-09-06] MEDS ORDERED: MENTHOL/PHENOL 1 EACH UD MM PRN (21:53)
[2017-09-06] MEDS ORDERED: P-EPHED 60MG/TRIPROLIDI 2.5MG TABLET PO PRN (21:53)
[2017-09-06] MEDS: THIAMINE HCL 100 MG TABLET (FP) PO SCH (23:39)
[2017-09-07] MEDS ORDERED: METHADONE HCL 10 MG TABLET PO SCH (07:30)
[2017-09-07] MEDS ORDERED: METHADONE HCL 40 MG DISPERSABLE TABLET ONE (07:47)
[2017-09-07] MEDS ORDERED: METHADONE HCL 10 MG TABLET ONE (07:47)
[2017-09-07] MEDS: METHADONE 40 MG, METHADONE 10 MG PO SCH (07:51)
[2017-09-07] MEDS: ENALAPRIL MALEATE 10 MG TABLET (FP) PO SCH (11:42)
[2017-09-07] MEDS: PRENATAL VITAMINS W/ FOLIC ACID TABLET (FP) PO SCH (11:42)
[2017-09-07] MEDS: NICOTINE 14 MG/24 HOURS TOPICAL PATCH TD SCH (11:42)
--- NOTE | 2017-09-07 11:55 | HP ---
Psychiatrist Admission - Data Date of interview: 09/07/17 Admission source: 3N Identifying data: This is the first 5N inpatient rehabilitation admission for this 57 year AA male who is father of six, currently homeless and unemployed supported on food stamps. Medical History: Hepatitis C,hypertension,GERD and a history of positive PPD ( treated). On MMTP 50 mg daily, smokes cigarettes 20 a day. Psychiatric History: Patient reports was diagnosed with Bipolar Disorder and a history of one psychiatric hospitalization last year. Treated with medications but the patient is unable to recall the name of the medication, states that he gets his outpatient psychiatric services at the [facility] in the [place]. Denies history of suicide attempts. Seen by who restarted on Risperdal 1 mg po hs, as per record was on Risperdal 2 mg po hs. Physical/Sexual Abuse/Trauma History: Patient denies history of sexual, physical and verbal abuse Vital Signs: Vital Signs - 24 hr 09/06/17 09/06/17 09/07/17 16:41 23:00 00:30 Temperature 96 F L 98.3 F Pulse Rate 74 74 Respiratory 18 18 18 Rate Blood Pressure 153/92 151/110 09/07/17 09/07/17 03:30 06:39 Temperature 98.8 F Pulse Rate 78 Respiratory 18 16 Rate Blood Pressure 144/98 Allergies/Adverse Reactions: Allergies Allergy/AdvReac Type Severity Reaction Status Date / Time No Known Allergies Allergy Verified 09/06/17 21:36 Date of last physical exam: 09/01/17 Concur with the findings of this exam: Yes - Substance Abuse/Tx History Hx Alcohol Use: Yes (liqor 1 pint, beer 2 six pack) Hx Substance Use: No Hx Substance Use Treatment: Yes Mental Status Exam - Mental Status Exam Alert and Oriented to: Time, Place, Person Cognitive Function: Good Patient Appearance: Well Groomed Mood: Sad Affect: Appropriate, Mood Congruent Patient Behavior: Appropriate, Cooperative Speech Pattern: Clear, Appropriate Voice Loudness: Normal Thought Process: Intact, Goal Oriented Thought Disorder: Not Present Hallucinations: Auditory (hears voices ) Suicidal Ideation: Denies Homicidal Ideation: Denies Insight/Judgement: Fair Sleep: Fair Appetite: Good Muscle strength/Tone: Normal Gait/Station: Normal Psychiatric Findings - Problem List ([place] 1, 2,3) (1) Alcohol dependence Current Visit: No Status: Acute Qualifiers: Substance use status: uncomplicated Qualified Code(s): F10.20 - Alcohol dependence, uncomplicated (2) Nicotine dependence Current Visit: No Status: Acute Qualifiers: Nicotine product type: cigarettes Substance use status: in withdrawal Qualified Code(s): F17.213 - Nicotine dependence, cigarettes, with withdrawal (3) Bipolar disorder Current Visit: No Status: Chronic Qualifiers: Active/Remission status: remission status unspecified Qualified Code(s): F31.9 - Bipolar disorder, unspecified Comment: As per self-report.Questionable adherence to psychiatric OPD care. (4) HTN (hypertension) Current Visit: No Status: Chronic Qualifiers: Hypertension type: essential hypertension Qualified Code(s): I10 - Essential (primary) hypertension - Initial Treatment Plan Initial Treatment Plan: will continue Risperdal 1 mg po hs, monitor progress as needed.
[2017-09-07] MEDS: risperiDONE 1 MG TABLET (FP) PO SCH (21:16)
[2017-09-07] MEDS: THIAMINE HCL 100 MG TABLET (FP) PO SCH (21:16)
[2017-09-08] MEDS ORDERED: METHADONE HCL 10 MG TABLET ONE (05:35)
[2017-09-08] MEDS ORDERED: METHADONE HCL 40 MG DISPERSABLE TABLET ONE (05:35)
[2017-09-08] MEDS: METHADONE 40 MG, METHADONE 10 MG PO SCH (06:27)
[2017-09-08] MEDS: ENALAPRIL MALEATE 10 MG TABLET (FP) PO SCH (09:54)
[2017-09-08] MEDS: NICOTINE 14 MG/24 HOURS TOPICAL PATCH TD SCH (09:55)
[2017-09-08] MEDS: PRENATAL VITAMINS W/ FOLIC ACID TABLET (FP) PO SCH (09:55)
[2017-09-08] MEDS: THIAMINE HCL 100 MG TABLET (FP) PO SCH (21:32)
[2017-09-08] MEDS: risperiDONE 1 MG TABLET (FP) PO SCH (21:32)
[2017-09-09] MEDS ORDERED: METHADONE HCL 40 MG DISPERSABLE TABLET ONE (04:58)
[2017-09-09] MEDS ORDERED: METHADONE HCL 10 MG TABLET ONE (04:58)
[2017-09-09] MEDS: METHADONE 40 MG, METHADONE 10 MG PO SCH (06:10)
[2017-09-09] MEDS: NICOTINE 14 MG/24 HOURS TOPICAL PATCH TD SCH (10:05)
[2017-09-09] MEDS: PRENATAL VITAMINS W/ FOLIC ACID TABLET (FP) PO SCH (10:05)
[2017-09-09] MEDS: ENALAPRIL MALEATE 10 MG TABLET (FP) PO SCH (10:05)
[2017-09-09] MEDS: risperiDONE 1 MG TABLET (FP) PO SCH (22:13)
[2017-09-09] MEDS: THIAMINE HCL 100 MG TABLET (FP) PO SCH (22:13)
[2017-09-10] MEDS ORDERED: METHADONE HCL 10 MG TABLET ONE (03:26)
[2017-09-10] MEDS ORDERED: METHADONE HCL 40 MG DISPERSABLE TABLET ONE (03:27)
[2017-09-10] MEDS: METHADONE 40 MG, METHADONE 10 MG PO SCH (06:10)
[2017-09-10] MEDS: ENALAPRIL MALEATE 10 MG TABLET (FP) PO SCH (10:01)
[2017-09-10] MEDS: PRENATAL VITAMINS W/ FOLIC ACID TABLET (FP) PO SCH (10:01)
[2017-09-10] MEDS: NICOTINE 14 MG/24 HOURS TOPICAL PATCH TD SCH (10:01)
[2017-09-10] MEDS: MAGNESIUM HYDROX 2400MG/30ML ORAL SUSPENSION 30 ML CUP PO PRN (14:30)
[2017-09-10] MEDS: THIAMINE HCL 100 MG TABLET (FP) PO SCH (21:22)
[2017-09-10] MEDS: risperiDONE 1 MG TABLET (FP) PO SCH (21:22)
[2017-09-11] MEDS ORDERED: METHADONE HCL 10 MG TABLET ONE (05:28)
[2017-09-11] MEDS ORDERED: METHADONE HCL 40 MG DISPERSABLE TABLET ONE (05:29)
[2017-09-11] MEDS: METHADONE 40 MG, METHADONE 10 MG PO SCH (06:18)
[2017-09-11] MEDS: NICOTINE 14 MG/24 HOURS TOPICAL PATCH TD SCH (10:09)
[2017-09-11] MEDS: PRENATAL VITAMINS W/ FOLIC ACID TABLET (FP) PO SCH (10:09)
[2017-09-11] MEDS: ENALAPRIL MALEATE 10 MG TABLET (FP) PO SCH (10:09)
[2017-09-11] MEDS: risperiDONE 1 MG TABLET (FP) PO SCH (21:29)
[2017-09-11] MEDS: THIAMINE HCL 100 MG TABLET (FP) PO SCH (21:29)
[2017-09-11] MEDS: MELATONIN 5 MG TABLETS PO PRN (21:29)
[2017-09-11] MEDS: MAGNESIUM HYDROX 2400MG/30ML ORAL SUSPENSION 30 ML CUP PO PRN (21:30)
[2017-09-12] MEDS ORDERED: METHADONE HCL 10 MG TABLET ONE (03:07)
[2017-09-12] MEDS ORDERED: METHADONE HCL 40 MG DISPERSABLE TABLET ONE (03:07)
[2017-09-12] MEDS: METHADONE 40 MG, METHADONE 10 MG PO SCH (06:16)
[2017-09-12] MEDS: MAGNESIUM HYDROX 2400MG/30ML ORAL SUSPENSION 30 ML CUP PO PRN (06:19)
[2017-09-12] MEDS: PRENATAL VITAMINS W/ FOLIC ACID TABLET (FP) PO SCH (10:17)
[2017-09-12] MEDS: ENALAPRIL MALEATE 10 MG TABLET (FP) PO SCH (10:17)
[2017-09-12] MEDS: NICOTINE 14 MG/24 HOURS TOPICAL PATCH TD SCH (10:18)
[2017-09-12] MEDS: THIAMINE HCL 100 MG TABLET (FP) PO SCH (21:30)
[2017-09-12] MEDS: risperiDONE 1 MG TABLET (FP) PO SCH (21:30)
[2017-09-12] MEDS: MELATONIN 5 MG TABLETS PO PRN (21:30)
[2017-09-13] MEDS ORDERED: METHADONE HCL 10 MG TABLET ONE (02:52)
[2017-09-13] MEDS ORDERED: METHADONE HCL 40 MG DISPERSABLE TABLET ONE (02:52)
[2017-09-13] MEDS: METHADONE 40 MG, METHADONE 10 MG PO SCH (06:08)
[2017-09-13] MEDS: PRENATAL VITAMINS W/ FOLIC ACID TABLET (FP) PO SCH (10:05)
[2017-09-13] MEDS: NICOTINE 14 MG/24 HOURS TOPICAL PATCH TD SCH (10:05)
[2017-09-13] MEDS: ENALAPRIL MALEATE 10 MG TABLET (FP) PO SCH (10:05)
[2017-09-13] MEDS: MELATONIN 5 MG TABLETS PO PRN (21:35)
[2017-09-13] MEDS: risperiDONE 1 MG TABLET (FP) PO SCH (21:35)
[2017-09-13] MEDS: THIAMINE HCL 100 MG TABLET (FP) PO SCH (21:35)
[2017-09-14] MEDS ORDERED: METHADONE HCL 10 MG TABLET ONE (04:47)
[2017-09-14] MEDS ORDERED: METHADONE HCL 40 MG DISPERSABLE TABLET ONE (04:48)
[2017-09-14] MEDS: METHADONE 40 MG, METHADONE 10 MG PO SCH (06:30)
[2017-09-14] MEDS: PRENATAL VITAMINS W/ FOLIC ACID TABLET (FP) PO SCH (09:20)
[2017-09-14] MEDS: NICOTINE 14 MG/24 HOURS TOPICAL PATCH TD SCH (09:20)
[2017-09-14] MEDS: ENALAPRIL MALEATE 10 MG TABLET (FP) PO SCH (09:20)
[2017-09-14] MEDS: THIAMINE HCL 100 MG TABLET (FP) PO SCH (21:21)
[2017-09-14] MEDS: risperiDONE 1 MG TABLET (FP) PO SCH (21:21)
[2017-09-14] MEDS: MELATONIN 5 MG TABLETS PO PRN (21:22)
[2017-09-15] MEDS ORDERED: METHADONE HCL 40 MG DISPERSABLE TABLET ONE (06:06)
[2017-09-15] MEDS ORDERED: METHADONE HCL 10 MG TABLET ONE (06:06)
[2017-09-15] MEDS: METHADONE 40 MG, METHADONE 10 MG PO SCH (06:15)
[2017-09-15] MEDS: ENALAPRIL MALEATE 10 MG TABLET (FP) PO SCH (10:18)
[2017-09-15] MEDS: PRENATAL VITAMINS W/ FOLIC ACID TABLET (FP) PO SCH (10:18)
[2017-09-15] MEDS: NICOTINE 14 MG/24 HOURS TOPICAL PATCH TD SCH (10:18)
--- NOTE | 2017-09-15 16:05 | PN ---
[facility] Progress Note Note: NOTIFIED BY RN PATIENT VERY SLEEPY ALL DAY. UNABLE TO STAY AWAKE IN GROUP. PATIENT REQUESTED TO SPEAK TO PROVIDER REGARDING METHADONE DOSE. Laboratory Tests 09/08/17 07:30 HIV 1&2 Antibody Screen Negative HIV P24 Antigen Negative Vital Signs Temperature 98.7 F 09/15/17 06:39 Pulse Rate 92 H 09/15/17 10:00 Respiratory Rate 16 09/15/17 06:39 Blood Pressure 143/90 09/15/17 10:00 O2 Sat by Pulse Oximetry (%) OBJ: GENERAL: IN NO ACUTE DISTRESS. AWAKE AND ORIENTED SKIN: WARM AND DRY CAR: S1S2 RESP: CTA A/P MMTP SEDATION WILL DECREASE METHADONE TO 40MG DAILY STARTING TOMORROW CONTINUE TO MONITOR CLINICALLY
[2017-09-15] MEDS: risperiDONE 1 MG TABLET (FP) PO SCH (21:25)
[2017-09-15] MEDS: MELATONIN 5 MG TABLETS PO PRN (21:25)
[2017-09-15] MEDS: THIAMINE HCL 100 MG TABLET (FP) PO SCH (21:25)
[2017-09-16] MEDS ORDERED: METHADONE HCL 10 MG TABLET PO SCH (06:00)
[2017-09-16] MEDS: ENALAPRIL MALEATE 10 MG TABLET (FP) PO SCH (10:25)
[2017-09-16] MEDS: PRENATAL VITAMINS W/ FOLIC ACID TABLET (FP) PO SCH (10:25)
[2017-09-16] MEDS: NICOTINE 14 MG/24 HOURS TOPICAL PATCH TD SCH (10:26)
[2017-09-16] MEDS: MELATONIN 5 MG TABLETS PO PRN (21:32)
[2017-09-16] MEDS: risperiDONE 1 MG TABLET (FP) PO SCH (21:32)
[2017-09-16] MEDS: THIAMINE HCL 100 MG TABLET (FP) PO SCH (21:32)
[2017-09-17] MEDS: METHADONE HCL 40 MG DISPERSABLE TABLET PO SCH (06:19)
[2017-09-17] MEDS: NICOTINE 14 MG/24 HOURS TOPICAL PATCH TD SCH (10:12)
[2017-09-17] MEDS: ENALAPRIL MALEATE 10 MG TABLET (FP) PO SCH (10:12)
[2017-09-17] MEDS: PRENATAL VITAMINS W/ FOLIC ACID TABLET (FP) PO SCH (10:12)
[2017-09-17] MEDS: THIAMINE HCL 100 MG TABLET (FP) PO SCH (21:32)
[2017-09-17] MEDS: risperiDONE 1 MG TABLET (FP) PO SCH (21:32)
[2017-09-17] MEDS: MELATONIN 5 MG TABLETS PO PRN (21:33)
[2017-09-18] MEDS: METHADONE HCL 40 MG DISPERSABLE TABLET PO SCH (06:38)
[2017-09-18] MEDS: ENALAPRIL MALEATE 10 MG TABLET (FP) PO SCH (10:02)
[2017-09-18] MEDS: PRENATAL VITAMINS W/ FOLIC ACID TABLET (FP) PO SCH (10:02)
[2017-09-18] MEDS: NICOTINE 14 MG/24 HOURS TOPICAL PATCH TD SCH (10:02)
[2017-09-18] MEDS: risperiDONE 1 MG TABLET (FP) PO SCH (21:23)
[2017-09-18] MEDS: MELATONIN 5 MG TABLETS PO PRN (21:23)
[2017-09-18] MEDS: THIAMINE HCL 100 MG TABLET (FP) PO SCH (21:23)
[2017-09-19] MEDS: METHADONE HCL 40 MG DISPERSABLE TABLET PO SCH (06:35)
[2017-09-19] MEDS: ENALAPRIL MALEATE 10 MG TABLET (FP) PO SCH (10:00)
[2017-09-19] MEDS: PRENATAL VITAMINS W/ FOLIC ACID TABLET (FP) PO SCH (10:00)
[2017-09-19] MEDS: NICOTINE 14 MG/24 HOURS TOPICAL PATCH TD SCH (10:00)
[2017-09-19] MEDS: THIAMINE HCL 100 MG TABLET (FP) PO SCH (21:28)
[2017-09-19] MEDS: risperiDONE 1 MG TABLET (FP) PO SCH (21:29)
[2017-09-19] MEDS: MELATONIN 5 MG TABLETS PO PRN (21:29)
[2017-09-20] MEDS: METHADONE HCL 40 MG DISPERSABLE TABLET PO SCH (06:31)
[2017-09-20 07:04] VITALS: BP 141/89; PULSE 81; TEMP 98.2
--- NOTE | 2017-09-20 10:11 | PN ---
Psychiatric Progress Note Vital Signs: Vital Signs Period Temp Pulse Resp BP Sys/Ledbetter Pulse Ox Last 24 Hr 98.2 F 81 18-18 141/89 Date of Session: 09/20/17 Chief Complaint:: Discharge Note HPI: Patient addressing Alcohol Dependence comorbid with Nicotine Dependence and Bipolar Disorder ROS: HTN Current Medications: Active Medications Generic Name Dose Route Start Last Admin Trade Name Freq PRN Reason Stop Dose Admin Acetaminophen 650 mg 09/06/17 21:53 Tylenol - PO Q4H PRN FEVER Al Hydroxide/Mg Hydroxide 30 ml 09/06/17 21:53 Mylanta Oral Suspension - PO Q6H PRN DYSPEPSIA Enalapril Maleate 10 mg 09/07/17 10:00 09/19/17 10:00 Vasotec - PO 10 mg DAILY JESSICA Administration Eucalyptus/Menthol/Phenol/Sorbitol 1 each 09/06/17 21:53 Cepastat Lozenge - MM Q4H PRN SORE THROAT Guaifenesin 10 ml 09/06/17 21:53 Robitussin Dm - PO Q6H PRN COUGH Hydroxyzine Pamoate 50 mg 09/06/17 21:53 09/19/17 21:29 Vistaril - PO 50 mg Q4H PRN Administration AGITATION Ibuprofen 400 mg 09/06/17 21:53 Motrin - PO Q6H PRN Pain Level 4-6 Loperamide HCl 4 mg 09/06/17 21:53 Imodium - PO Q6H PRN DIARRHEA Magnesium Citrate 300 ml 09/06/17 21:53 Citroma - PO Q48H PRN CONSTIPATION Magnesium Hydroxide 30 ml 09/06/17 21:53 09/12/17 06:19 Milk Of Magnesia - PO 30 ml DAILY PRN Administration CONSTIPATION Melatonin 5 mg 09/06/17 22:00 09/19/17 21:29 Melatonin PO 5 mg HS PRN Administration INSOMNIA Methadone HCl 40 mg 09/17/17 06:00 09/20/17 06:31 Dolophine - PO 40 mg DAILY@0600 JESSICA Administration Nicotine 14 mg 09/07/17 10:00 09/19/17 10:00 Nicoderm Patch - TD Not Given DAILY JESSICA Nicotine Polacrilex 2 mg 09/06/17 21:53 Nicorette Gum - BUC Q2H PRN NICOTINE REPLACEMENT RX Multivit/Folic Acid/Iron 1 tab 09/07/17 10:00 09/19/17 10:00 Vitamins ([facility]) - PO 1 tab DAILY JESSICA Administration Pseudoephedrine/Triprolidine 1 combo 09/06/17 21:53 Actifed - PO TID PRN NASAL CONGESTION Risperidone 1 mg 09/07/17 22:00 09/19/17 21:29 Risperdal - PO 1 mg HS JESSICA Administration Thiamine HCl 100 mg 09/06/17 22:00 09/19/17 21:28 Vitamin B1 - PO 100 mg HS JESSICA Administration Current Side Effect: No Lab tests ordered: Yes Lab tests reviewed: Yes Provider note:: Patient has completed this program today. He has met his treatment goals and will continue to address his issues in outpatient treatment at [facility]. 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 He responded well to Risperdal 1 mg po HS. Script for that medication is electronicaly transmitted to [facility]. He is stable for discharge today Total face to face time:: 35 Mental Status Exam - Mental Status Exam Alert and Oriented to: Time, Place, Person Cognitive Function: Fair Patient Appearance: Well Groomed Mood: Hopeful, Euthymic Affect: Appropriate Patient Behavior: Cooperative Speech Pattern: Clear Voice Loudness: Normal Thought Process: Intact Thought Disorder: Not Present Hallucinations: Denies Suicidal Ideation: Denies Homicidal Ideation: Denies Insight/Judgement: Fair Sleep: Fair Appetite: Good Muscle strength/Tone: Normal Gait/Station: Normal Psychiatric Treatment Plan - Problem List (1) Alcohol dependence Qualifiers: Substance use status: uncomplicated Qualified Code(s): F10.20 - Alcohol dependence, uncomplicated (2) Nicotine dependence Qualifiers: Nicotine product type: cigarettes Substance use status: in withdrawal Qualified Code(s): F17.213 - Nicotine dependence, cigarettes, with withdrawal (3) Bipolar disorder Qualifiers: Active/Remission status: remission status unspecified Qualified Code(s): F31.9 - Bipolar disorder, unspecified Comment: As per self-report.Questionable adherence to psychiatric OPD care. (4) HTN (hypertension) Qualifiers: Hypertension type: essential hypertension Qualified Code(s): I10 - Essential (primary) hypertension (5) Alcohol related seizure Initial treatment plan: Patient is discharged today and referred to [facility] for outpatient program
[2017-09-20] MEDS: NICOTINE 14 MG/24 HOURS TOPICAL PATCH TD SCH (10:27)
[2017-09-20] MEDS: PRENATAL VITAMINS W/ FOLIC ACID TABLET (FP) PO SCH (10:27)
[2017-09-20] MEDS: ENALAPRIL MALEATE 10 MG TABLET (FP) PO SCH (10:27)
== END 2017-09-20 12:35 | disposition home or self-care (01) | DRG 772 ==
LOC: YASAS 14:52 → Y5N 21:17
PROVIDERS: ADMIT Psychiatry & Neurology Psychiatry; ATTEND Psychiatry & Neurology Psychiatry
PROC: HZ42ZZZ Group Counseling for Substance Abuse Treatment, Cognitive-Behavioral (ICD-10-PCS; principal; 2017-09-06)
DX: F11.20 Opioid dependence, uncomplicated (principal); F10.20 Alcohol dependence, uncomplicated; F31.9 Bipolar disorder, unspecified; I10 Essential (primary) hypertension; B18.2 Chronic viral hepatitis C
CPT/HCPCS: 36415; 87389; J2794

== ENCOUNTER 2018-07-15 19:00 | Emergency (ER) | payer OTHER ==
--- NOTE | 2018-07-15 23:35 | PDOC ---
History of Present Illness - General Time Seen by Provider: 07/15/18 23:35 Past History - Past Medical History Allergies/Adverse Reactions: Allergies Allergy/AdvReac Type Severity Reaction Status Date / Time No Known Allergies Allergy Verified 07/19/18 15:43 Home Medications: Ambulatory Orders Folic Acid - 1 mg PO DAILY tablet 07/22/18 Lactulose (Oral Use) [Cephulac -] 20 gm PO QID udc 07/22/18 Lactulose (Oral Use) [Cephulac -] 20 gm PO QID #1 bottle 07/22/18 Lisinopril [Prinivil] 20 mg PO DAILY tablet 07/22/18 Lisinopril [Prinivil] 20 mg PO DAILY #30 tablet 07/22/18 Methadone [Dolophine -] 30 mg PO 0600 tablet MDD 30 07/22/18 Metoprolol Succinate [Toprol XL -] 25 mg PO DAILY tab.sr.24h 07/22/18 Metoprolol Succinate [Toprol Xl -] 25 mg PO DAILY #30 tab.sr.24h 07/22/18 Multivitamins [Multivit ([facility] Formulary)] 1 tab PO DAILY tab 07/22/18 Rifaximin [Xifaxan -] 550 mg PO BID tablet 07/22/18 Rifaximin [Xifaxan] 550 mg PO BID #60 tablet 07/22/18 Thiamine HCl [B-1] 100 mg PO DAILY #30 tablet 07/22/18 Thiamine HCl [Vitamin B1 -] 100 mg PO DAILY tablet 07/22/18 Anemia: No Asthma: No Cardiac Disorders: No CVA: No COPD: No Diabetes: No GI Disorders: No Disorders: No HTN: No Hypercholesterolemia: No Kidney Stones: No Seizures: No Thyroid Disease: No - Surgical History Abdominal Surgery: No Appendectomy: No Cardiac Surgery: No Cholecystectomy: No Lung Surgery: No Neurologic Surgery: No Orthopedic Surgery: No - Reproductive History Testicular Surgery: No - Suicide/Smoking/Psychosocial Hx Smoking History: Current every day smoker Have you smoked in the past 12 months: Yes Number of Cigarettes Smoked Daily: 30 'Breaking Loose' booklet given: 08/31/17 Hx Alcohol Use: Yes (liqor 1 pint, beer 2 six pack) Drug/Substance Use Hx: No Substance Use Type: Alcohol, Heroin Hx Substance Use Treatment: Yes ED Treatment Course - LABORATORY CBC & Chemistry Diagram: 07/15/18 21:00 07/15/18 21:00 Medical Decision Making - Medical Decision Making 07/15/18 23:35 pt was seen during downtime process please see paper chart for complete record *DC/Admit/Observation/Transfer Diagnosis at time of Disposition: Alcohol abuse - Discharge Dispostion Disposition: HOME Decision to Admit order: No - Referrals Referrals: Lynnette Petersen MD [Primary Care Provider] - - Patient Instructions - Post Discharge Activity
[2018-07-16 02:29] LABS: CREATININE 0.9 mg/dL (0.55-1.3)
[2018-07-16 05:27] VITALS: BP 127/90; PULSE 98; TEMP 98.6; BMI 23.4
[2018-07-16 08:28] LABS: ALBUMIN 2.9 g/dl (3.4-5.0); ALK PHOS 100 U/L (45-117); ANION GAP 10 MMOL/L (8-16); BILIRUBIN,TOTAL 2.8 mg/dL (0.2-1); BLOOD UREA NITROGEN 8 mg/dL (7-18); CALCIUM 8.5 mg/dL (8.5-10.1); CHLORIDE 106 mmol/L (98-107); CO2 24 mmol/L (21-32); GLUCOSE,RANDOM 82 mg/dL (74-106); POTASSIUM 3.6 mmol/L (3.5-5.1); SGOT/AST 276 U/L (15-37); SGPT/ALT 75 U/L (13-61); SODIUM 140 mmol/L (136-145); TOT PROT 8.6 g/dl (6.4-8.2)
[2018-07-17 09:55] LABS: HEMATOCRIT 34.7 % (35.4-49); HEMOGLOBIN 11.8 GM/dL (11.7-16.9); MCH 30.5 pg (25.7-33.7); MCHC 33.9 g/dl (32.0-35.9); MEAN CELL VOLUME 90.2 fl (80-96); MEAN PLT VOLUME 11.2 fl (7.5-11.1); PLATELET COUNT 50 K/MM3 (134-434); RBC 3.85 M/mm3 (4.00-5.60); RDW 13.6 % (11.9-15.9); WHITE BLOOD COUNT 4.8 K/mm3 (4.0-10.0)
== END 2018-07-16 05:38 | disposition home or self-care (01) ==
LOC: JER 19:00
DX: F10.120 Alcohol abuse with intoxication, uncomplicated (principal); Z59.0 Homelessness
CPT/HCPCS: 36415; 71046-TC-FY; 73130-TC-LT-FY; 80053; 80307; 85027; 87804; 99282-25

== ENCOUNTER 2018-07-16 05:34 | Inpatient (IN) | payer OTHER ==
[2018-07-16 09:18] VITALS: BMI 22.6
--- NOTE | 2018-07-16 09:27 | HP ---
"CIWA Score Nausea/Vomitin Muscle Tremors: 4-Moderate,w/Arms Extend Anxiety: 4-Mod. Anxious/Guarded Agitation: 1-Slight > Activity Paroxysmal Sweats: No Perspiration Orientation: 1-Uncertain about Date Tacttile Disturbances: 2-Mild Itch/Numbness/Burn Auditory Disturbances: 1-Very Mild Visual Disturbances: 1-Very Mild Sensitivity Headache: 2-Mild CIWA-Ar Total Score: 18 - Admission Criteria OASAS Guidelines: Admission for Medically Managed Detox: Requires at least one of the followin. CIWA greater than 12 2. Seizures within the past 24 hours 3. Delirium tremens within the past 24 hours 4. Hallucinations within the past 24 hours 5. Acute intervention needed for co occurring medical disorder 6. Acute intervention needed for co occurring psychiatric disorder 7. Severe withdrawal that cannot be handled at a lower level of care (continued vomiting, continued diarrhea, abnormal vital signs) requiring intravenous medication and/or fluids 8. Patient presents the following: CIWA greater than 12 Admission Criteria Met: Admission criteria met Admission ROS BHS - HPI Chief Complaint: I'm tired of it, I want to stop drinking Allergies/Adverse Reactions: Allergies Allergy/AdvReac Type Severity Reaction Status Date / Time No Known Allergies Allergy Verified 07/16/18 09:54 History of Present Illness: 57 yo gentleman here for detox from alcohol, also on methadone program ([facility], 40mg). States he just started drinking about three years ago - had a seizure two years ago when he tried to stop. Apparently was here yesterday for detox and sent to [facility] ED for evaluation of left hand which was found to be fractured and currently splinted. He states he fell about a week ago. c/o rib pain but cxr 07/16/18 shows no gross rib trauma. Previously here for detox in August 2017. Noted labs done in [facility] yesterday: AST = 276, ALT=75. Noted urine tox + bzo - patient is Rx clonazepam. [facility]: corry manuel, 1960 Search Date: 07/16/2018 10:57:19 AM The Drug Utilization Report below displays all of the controlled substance prescriptions, if any, that your patient has filled in the last twelve months. The information displayed on this report is compiled from pharmacy submissions to the Department, and accurately reflects the information as submitted by the pharmacies. This report was requested by: Tasha Argueta | Reference #: [id number] Others' Prescriptions Patient Name: Corry Manuel Date: 1960 Address: [address] [place] [address] Sex: Male Rx Written Rx Dispensed Drug Quantity Days Supply Prescriber Name 05/23/2018 05/23/2018 clonazepam 0.5 mg tablet 30 30 Taj Epperson MD 04/11/2018 04/11/2018 clonazepam 0.5 mg tablet 30 30 MoussavianTaj MD 03/14/2018 03/21/2018 clonazepam 0.5 mg tablet 30 30 MoussavianTaj MD 02/07/2018 02/09/2018 clonazepam 0.5 mg tablet 30 30 MousspasqualeanTaj MD 12/20/2017 12/28/2017 clonazepam 0.5 mg tablet 30 30 MoussaviTaj liao MD 11/22/2017 11/22/2017 clonazepam 0.5 mg tablet 30 30 MoussavianTaj MD Exam Limitations: Clinical Condition - Ebola screening Have you been sick,other than usual withdrawal symptoms: No - Review of Systems Constitutional: Loss of Appetite, Malaise, Changes in sleep EENT: reports: Hearing Loss Respiratory: reports: No Symptoms reported Cardiac: reports: No Symptoms Reported GI: reports: Nausea, Poor Fluid Intake, Indigestion, Abdominal cramping : reports: Frequency Musculoskeletal: reports: Back Pain, Other (rib pain; left hand fracture) Integumentary: reports: Dryness Neuro: reports: Headache, Tremors Endocrine: reports: No Symptoms Reported Hematology: reports: No Symptoms Reported Psychiatric: reports: Judgement Intact, Mood/Affect Appropiate, Anxious Other Systems: Reviewed and Negative Patient History - Patient Medical History Hx Anemia: No Hx Asthma: No Hx Chronic Obstructive Pulmonary Disease (COPD): No Hx Cancer: No Hx Cardiac Disorders: No Hx Hypertension: Yes (on meds) Hx Hypercholesterolemia: Yes (no meds) HX Cerebrovascular Accident: No Hx Seizures: Yes (two years ago) Hx Diabetes: No Hx Gastrointestinal Disorders: No Hx Liver Disease: Yes (cirrhosis) Hx Genitourinary Disorders: No Hx Sexually Transmitted Disorders: No Hx Renal Disease (ESRD): No Hx Thyroid Disease: No Hx Human Immunodeficiency Virus (HIV): No (NEGATIVE HX) Hx Hepatitis C: Yes (not treated ) Hx Depression: Yes Hx Suicide Attempt: No Hx Bipolar Disorder: No Hx Schizophrenia: Yes (on meds) - Patient Surgical History Past Surgical History: No Hx Neurologic Surgery: No Hx Cataract Extraction: No Hx Cardiac Surgery: No Hx Lung Surgery: No Hx Breast Surgery: No Hx Breast Biopsy: No Hx Abdominal Surgery: No Hx Appendectomy: No Hx Cholecystectomy: No Hx Genitourinary Surgery: No Hx Section: No Hx Orthopedic Surgery: No Anesthesia Reaction: No - PPD History Previous Implant?: Yes Documented Results: Positive w/o proof Implanted On Prior [facility] Admission?: Yes Date: 07/15/18 (cxr normal) - Reproductive History Patient is a Female of Child Bearing Age (11 -55 yrs old): No (male) - Smoking Cessation Smoking history: Current every day smoker Have you smoked in the past 12 months: Yes Aproximately how many cigarettes per day: 5 Hx Chewing Tobacco Use: No Initiated information on smoking cessation: Yes 'Breaking Loose' booklet given: 07/16/18 (give on floor) - Substance & Tx. History Hx Alcohol Use: Yes Hx Substance Use: Yes Substance Use Type: Alcohol Hx Substance Use Treatment: Yes (detox, rehab) - Substances Abused alcohol Route: Oral Frequency: Daily Amount used: 2 pints; 1 40oz beer Age of first use: 54 Date of Last Use: 07/15/18 Family Disease History - Family Disease History Family Disease History: Other: Father (ETOH DEPENDENT AND ), Mother (ETOH DEPENDENT AND ), Brother (four - living), Sister (one - living - HIV), Son ( two), Daughter (four) Admission Physical Exam [facility] - Vital Signs Vital Signs: Vital Signs - 24 hr 07/16/18 09:16 Temperature 97.9 F Pulse Rate 108 H Respiratory 20 Rate Blood Pressure 158/102 H - Physical General Appearance: Yes: Nourished, Disheveled, Mild Distress, Anxious HEENTM: Yes: Normal ENT Inspection, Normocephalic, Normal Voice, Hearing Decreased, Other (tongue coated) Respiratory: Yes: Normal Breath Sounds, No Respiratory Distress Neck: Yes: No masses,lesions,Nodules, Supple Breast: Yes: Breast Exam Deferred Cardiology: Yes: Regular Rhythm, Regular Rate Abdominal: Yes: Flat Genitourinary: Yes: Frequency Back: Yes: Normal Inspection Musculoskeletal: Yes: full range of Motion, Gait Steady, Back pain Extremities: Yes: Other (left hand in partial splint - fingers mobile and warm - non swollen) Neurological: Yes: Alert, Motor Strength 5/5, Normal Mood/Affect, Normal Response, Numbness Integumentary: Yes: Normal Color, Warm Lymphatic: Yes: Within Normal Limits - Diagnostic (1) Alcohol dependence with uncomplicated withdrawal Current Visit: Yes Status: Acute (2) Hepatitis C Current Visit: Yes Status: Acute Qualifiers: Viral hepatitis chronicity: chronic Hepatic coma status: without hepatic coma Qualified Code(s): B18.2 - Chronic viral hepatitis C (3) Methadone maintenance therapy patient Current Visit: Yes Status: Acute (4) Nicotine dependence Current Visit: Yes Status: Acute Qualifiers: Nicotine product type: cigarettes Substance use status: in withdrawal Qualified Code(s): F17.213 - Nicotine dependence, cigarettes, with withdrawal (5) HTN (hypertension) Current Visit: Yes Status: Chronic Qualifiers: Hypertension type: essential hypertension Qualified Code(s): I10 - Essential (primary) hypertension (6) Alcohol related seizure Current Visit: Yes Status: Resolved (7) Closed left hand fracture Current Visit: Yes Status: Acute Qualifiers: Encounter type: subsequent encounter Fracture healing: with routine healing Qualified Code(s): S62.92XD - Unspecified fracture of left wrist and hand, subsequent encounter for fracture with routine healing Cleared for Admission [facility] - Detox or Rehab [facility] Level of Care: Medically Managed Detox Regimen/Protocol: Not Applicable (ativan protocoal) [facility] Breath Alcohol Content Breath Alcohol Content: 0 Urine Drug Screen - Results Drug Screen Negative: No Urine Drug Screen Results: BZO-Benzodiazepines, MTD-Methadone Inpatient Rehab Admission - Rehab Decision to Admit Inpatient rehab admission?: No"
[2018-07-16] MEDS ORDERED: MAGNESIUM HYDROX 2400MG/30ML ORAL SUSPENSION 30 ML CUP PO PRN (09:40)
[2018-07-16] MEDS ORDERED: MELATONIN 5 MG TABLETS PO PRN (09:40)
[2018-07-16] MEDS ORDERED: MENTHOL/PHENOL 1 EACH UD MM PRN (09:40)
[2018-07-16] MEDS ORDERED: hydrOXYzine PAMOATE 25 MG CAPSULE (FP) PO PRN (09:40)
[2018-07-16] MEDS ORDERED: MAG HYDROX/AL HYDROX/SIMETH 30 ML UNIT-DOSE CUP PO PRN (09:40)
[2018-07-16] MEDS ORDERED: BISMUTH SUBSALICYLATE 524 MG/30 ML UD PO PRN (09:40)
[2018-07-16] MEDS ORDERED: LORazepam 1 MG TABLET PO PRN (09:40)
[2018-07-16] MEDS ORDERED: MAGNESIUM CITRATE 300 ML BOTTLE PO PRN (09:40)
[2018-07-16] MEDS ORDERED: ENALAPRIL MALEATE 10 MG TABLET (FP) PO SCH (10:00)
[2018-07-16] MEDS ORDERED: METHOCARBAMOL 500 MG TABLET PO PRN (10:41)
[2018-07-16] MEDS ORDERED: LORazepam 2 MG TABLET PO ONE (10:45)
[2018-07-16] MEDS: PRENATAL VITAMINS W/ FOLIC ACID TABLET (FP) PO SCH (11:39)
[2018-07-16] MEDS: LIDOCAINE 5% TOPICAL PATCH TP SCH (11:39)
[2018-07-16] MEDS: LORazepam 2 MG TABLET PO SCH ×3 (11:40→22:49)
[2018-07-16] MEDS: METHADONE HCL 40 MG DISPERSABLE TABLET PO SCH (11:40)
[2018-07-16] MEDS: LISINOPRIL 20 MG TABLET (FP) PO SCH (13:32)
[2018-07-16] MEDS: THIAMINE HCL 100 MG TABLET (FP) PO SCH (22:49)
[2018-07-16] MEDS: LIDOCAINE PATCH REMOVAL MC SCH (22:50)
[2018-07-17] MEDS: METHADONE HCL 40 MG DISPERSABLE TABLET PO SCH (05:31)
[2018-07-17] MEDS: LORazepam 2 MG TABLET PO SCH (05:31)
[2018-07-17] MEDS: LISINOPRIL 20 MG TABLET (FP) PO SCH (10:24)
[2018-07-17] MEDS: PRENATAL VITAMINS W/ FOLIC ACID TABLET (FP) PO SCH (10:24)
[2018-07-17] MEDS: LORazepam 1 MG TABLET PO SCH ×3 (10:26→22:33)
--- NOTE | 2018-07-17 10:34 | CONSULT ---
[facility] Psychiatric Consult - Data Date of interview: 07/17/18 Admission source: Self-referred Identifying data: Mr weston is a 57 years old Black male, father of 6 children, unemployed receiving public assistance, homeless seeking detox treatment for alcohol Substance Abuse History: Reports history of alcohol use. Refer to addiction counselor's summary for further information Medical History: Significant for hypertension, dyslipidemia, hepatitis C, cirrhosis of the liver, history of alcohol related seizure, treatment for PPD+ and recent fracture of left hand(splint). Smokes 5 cigarettes daily Psychiatric History: Patient is sedated and unable to provide a reliable history. However he has had previous admissions in this facility. He reported being diagnosed with Bipolar Disorder and a history of one psychiatric hospitalization in 2017. Claimed that he was treated with medications but was unable to recall the name of the medication. He reported getting outpatient psychiatric services at the [facility] in the [place]. Denies history of suicide attempts. At his last admission in September 2017 in this facility, he was seen by Dr Linton and he was prescribed Risperdal 1 mg o HS. Physical/Sexual Abuse/Trauma History: Patient denies history of sexual, physical and verbal abuse Mental Status Exam - Mental Status Exam Alert and Oriented to: Time (Claimed that it was 2012 but did not know month and year. ), Place, Person Cognitive Function: Impaired (Somewhat most likely due to drowsiness. Told senior technical writer Misti is the current president) Patient Appearance: Disheveled Mood: Depressed Affect: Appropriate Patient Behavior: Sedated Speech Pattern: Clear Voice Loudness: Normal Thought Process: Intact (poverty of speech) Hallucinations: Denies Suicidal Ideation: Denies Homicidal Ideation: Denies Insight/Judgement: Poor Sleep: Poorly Appetite: Good Muscle strength/Tone: Normal Gait/Station: Normal Psychiatric Findings - Problem List ([place] 1, 2,3) (1) Bipolar disorder Current Visit: No Status: Chronic Qualifiers: Active/Remission status: remission status unspecified Qualified Code(s): F31.9 - Bipolar disorder, unspecified Comment: As per self-report.Questionable adherence to psychiatric OPD care. (2) Alcohol-induced mood disorder Current Visit: Yes Status: Acute (3) Alcohol-induced sleep disorder Current Visit: Yes Status: Acute (4) Alcohol dependence with uncomplicated withdrawal Current Visit: Yes Status: Acute (5) Opioid dependence on agonist therapy Current Visit: No Status: Chronic (6) Nicotine dependence Current Visit: Yes Status: Chronic Qualifiers: Nicotine product type: cigarettes Substance use status: in withdrawal Qualified Code(s): F17.213 - Nicotine dependence, cigarettes, with withdrawal (7) Closed left hand fracture Current Visit: Yes Status: Acute Qualifiers: Encounter type: subsequent encounter Fracture healing: with routine healing Qualified Code(s): S62.92XD - Unspecified fracture of left wrist and hand, subsequent encounter for fracture with routine healing (8) Hepatitis C Current Visit: Yes Status: Chronic Qualifiers: Viral hepatitis chronicity: chronic Hepatic coma status: without hepatic coma Qualified Code(s): B18.2 - Chronic viral hepatitis C (9) HTN (hypertension) Current Visit: Yes Status: Chronic Qualifiers: Hypertension type: essential hypertension Qualified Code(s): I10 - Essential (primary) hypertension (10) Dyslipidemia Current Visit: Yes Status: Chronic - Initial Treatment Plan Initial Treatment Plan: 1) Start Risperdal 1 mg po HS. 2) Continue inpatient detoxification
[2018-07-17] MEDS: LIDOCAINE 5% TOPICAL PATCH TP SCH (11:02)
[2018-07-17 11:34] LABS: HEMATOCRIT 32.3 % (35.4-49); HEMOGLOBIN 10.8 GM/dL (11.7-16.9); MCH 30.4 pg (25.7-33.7); MCHC 33.4 g/dl (32.0-35.9); MEAN CELL VOLUME 90.8 fl (80-96); MEAN PLT VOLUME 12.1 fl (7.5-11.1); PLATELET COUNT 46 K/MM3 (134-434); RBC 3.55 M/mm3 (4.00-5.60); RDW 13.4 % (11.9-15.9); WHITE BLOOD COUNT 3.6 K/mm3 (4.0-10.0)
[2018-07-17 13:10] LABS: BLOOD UREA NITROGEN 9 mg/dL (7-18); GLUCOSE,RANDOM 103 mg/dL (74-106)
[2018-07-17 13:11] LABS: ALBUMIN 2.6 g/dl (3.4-5.0); ANION GAP 7 MMOL/L (8-16); BILIRUBIN,TOTAL 2.3 mg/dL (0.2-1); CALCIUM 8.4 mg/dL (8.5-10.1); CHLORIDE 103 mmol/L (98-107); CO2 28 mmol/L (21-32); CREATININE 0.8 mg/dL (0.55-1.3); POTASSIUM 3.6 mmol/L (3.5-5.1); SODIUM 138 mmol/L (136-145); TOT PROT 7.2 g/dl (6.4-8.2)
[2018-07-17 13:12] LABS: ALK PHOS 88 U/L (45-117); SGOT/AST 156 U/L (15-37); SGPT/ALT 58 U/L (13-61)
--- NOTE | 2018-07-17 14:53 | PN ---
[facility] CIWA - CIWA Score Nausea/Vomitin-No Nausea/No Vomiting Muscle Tremors: 3 Anxiety: 2 Agitation: 3 Paroxysmal Sweats: 1-Minimal Palms Moist Orientation: 2-Disoriented Date<2 days Tacttile Disturbances: 0-None Auditory Disturbances: 0-None Visual Disturbances: 0-None Headache: 1-Very Mild CIWA-Ar Total Score: 12 S Progress Note (SOAP) Subjective: tremor sweating restlessness trouble sitting still Objective: 07/17/18 14:50 Vital Signs Temperature 98.8 F 07/17/18 13:17 Pulse Rate 98 H 07/17/18 13:17 Respiratory Rate 20 07/17/18 13:17 Blood Pressure 143/89 07/17/18 13:17 O2 Sat by Pulse Oximetry (%) Laboratory Last Values WBC 3.6 K/mm3 (4.0-10.0) L 07/17/18 08:00 RBC 3.55 M/mm3 (4.00-5.60) L 07/17/18 08:00 Hgb 10.8 GM/dL (11.7-16.9) L 07/17/18 08:00 Hct 32.3 % (35.4-49) L 07/17/18 08:00 MCV 90.8 fl (80-96) 07/17/18 08:00 MCH 30.4 pg (25.7-33.7) 07/17/18 08:00 MCHC 33.4 g/dl (32.0-35.9) 07/17/18 08:00 RDW 13.4 % (11.9-15.9) 07/17/18 08:00 Plt Count 46 K/MM3 (134-434) L 07/17/18 08:00 MPV 12.1 fl (7.5-11.1) H 07/17/18 08:00 Sodium 138 mmol/L (136-145) 07/17/18 08:00 Potassium 3.6 mmol/L (3.5-5.1) 07/17/18 08:00 Chloride 103 mmol/L (98-107) 07/17/18 08:00 Carbon Dioxide 28 mmol/L (21-32) 07/17/18 08:00 Anion Gap 7 MMOL/L (8-16) L 07/17/18 08:00 BUN 9 mg/dL (7-18) 07/17/18 08:00 Creatinine 0.8 mg/dL (0.55-1.3) 07/17/18 08:00 Creat Clearance w eGFR > 60 (>60) 07/17/18 08:00 Random Glucose 103 mg/dL (74-106) 07/17/18 08:00 Calcium 8.4 mg/dL (8.5-10.1) L 07/17/18 08:00 Total Bilirubin 2.3 mg/dL (0.2-1) H 07/17/18 08:00 AST 156 U/L (15-37) H 07/17/18 08:00 ALT 58 U/L (13-61) 07/17/18 08:00 Alkaline Phosphatase 88 U/L (45-117) 07/17/18 08:00 Total Protein 7.2 g/dl (6.4-8.2) 07/17/18 08:00 Albumin 2.6 g/dl (3.4-5.0) L 07/17/18 08:00 lab noted ast elevation low plat discontinue motrin Assessment: 07/17/18 14:52 withdrawal sx Plan: continue detox
[2018-07-17] MEDS ORDERED: cloNIDine HCL 0.1 MG TABLET PO ONE (21:35)
--- NOTE | 2018-07-17 21:37 | PN ---
S Progress Note Note: Patient's blood pressure is B/P 153/101. Patient is asymptomatic Vital Signs Temperature 97.4 F L 07/17/18 21:18 Pulse Rate 85 07/17/18 21:19 Respiratory Rate 16 07/17/18 21:18 Blood Pressure 153/101 H 07/17/18 21:19 O2 Sat by Pulse Oximetry (%) Action: Clonidine 0.1mg tablet 1 tablet oral ordered
[2018-07-17] MEDS: THIAMINE HCL 100 MG TABLET (FP) PO SCH (22:33)
[2018-07-17] MEDS: risperiDONE 1 MG TABLET (FP) PO SCH (22:33)
[2018-07-17] MEDS: LIDOCAINE PATCH REMOVAL MC SCH (22:34)
[2018-07-18] MEDS: METHADONE HCL 40 MG DISPERSABLE TABLET PO SCH (07:11)
[2018-07-18] MEDS: LORazepam 1 MG TABLET PO SCH (07:11)
[2018-07-18] MEDS: PRENATAL VITAMINS W/ FOLIC ACID TABLET (FP) PO SCH (10:41)
[2018-07-18] MEDS: LIDOCAINE 5% TOPICAL PATCH TP SCH (10:42)
[2018-07-18] MEDS: LORazepam 0.5 MG TABLET PO SCH ×3 (10:42→22:24)
[2018-07-18] MEDS: LISINOPRIL 20 MG TABLET (FP) PO SCH (10:42)
[2018-07-18] MEDS ORDERED: LORazepam 0.5 MG TABLET PO PRN (11:00)
[2018-07-18] MEDS ORDERED: cloNIDine HCL 0.1 MG TABLET PO PRN (11:29)
--- NOTE | 2018-07-18 11:35 | PN ---
[facility] CIWA - CIWA Score Nausea/Vomitin-No Nausea/No Vomiting Muscle Tremors: 1-None Visible, but [place] Anxiety: 1-Mildly Anxious Agitation: 1-Slight > Activity Paroxysmal Sweats: 1-Minimal Palms Moist Orientation: 3-Disoriented Date>2 days Tacttile Disturbances: 0-None Auditory Disturbances: 0-None Visual Disturbances: 0-None Headache: 1-Very Mild CIWA-Ar Total Score: 8 S Progress Note (SOAP) Subjective: tremor sweating feeling better today less anxious left forearm injured "2 weeks" ago treated at [facility], support board under palm and piper bandage secures the arm fingers good range of motion, brisk capillary refilled and dorsal of the hand mild swell Objective: 07/18/18 11:36 Vital Signs Temperature 98.6 F 07/18/18 09:55 Pulse Rate 99 H 07/18/18 09:55 Respiratory Rate 18 07/18/18 09:55 Blood Pressure 135/86 07/18/18 09:55 O2 Sat by Pulse Oximetry (%) Laboratory Last Values WBC 3.6 K/mm3 (4.0-10.0) L 07/17/18 08:00 RBC 3.55 M/mm3 (4.00-5.60) L 07/17/18 08:00 Hgb 10.8 GM/dL (11.7-16.9) L 07/17/18 08:00 Hct 32.3 % (35.4-49) L 07/17/18 08:00 MCV 90.8 fl (80-96) 07/17/18 08:00 MCH 30.4 pg (25.7-33.7) 07/17/18 08:00 MCHC 33.4 g/dl (32.0-35.9) 07/17/18 08:00 RDW 13.4 % (11.9-15.9) 07/17/18 08:00 Plt Count 46 K/MM3 (134-434) L 07/17/18 08:00 MPV 12.1 fl (7.5-11.1) H 07/17/18 08:00 Sodium 138 mmol/L (136-145) 07/17/18 08:00 Potassium 3.6 mmol/L (3.5-5.1) 07/17/18 08:00 Chloride 103 mmol/L (98-107) 07/17/18 08:00 Carbon Dioxide 28 mmol/L (21-32) 07/17/18 08:00 Anion Gap 7 MMOL/L (8-16) L 07/17/18 08:00 BUN 9 mg/dL (7-18) 07/17/18 08:00 Creatinine 0.8 mg/dL (0.55-1.3) 07/17/18 08:00 Creat Clearance w eGFR > 60 (>60) 07/17/18 08:00 Random Glucose 103 mg/dL (74-106) 07/17/18 08:00 Calcium 8.4 mg/dL (8.5-10.1) L 07/17/18 08:00 Total Bilirubin 2.3 mg/dL (0.2-1) H 07/17/18 08:00 AST 156 U/L (15-37) H 07/17/18 08:00 ALT 58 U/L (13-61) 07/17/18 08:00 Alkaline Phosphatase 88 U/L (45-117) 07/17/18 08:00 Total Protein 7.2 g/dl (6.4-8.2) 07/17/18 08:00 Albumin 2.6 g/dl (3.4-5.0) L 07/17/18 08:00 RPR Titer Nonreactive (NONREACTIVE) 07/17/18 08:00 lab noted Assessment: 07/18/18 11:37 alcohol withdrawal sx 07/18/18 11:38 left hand 4th metacarpal obligate fx Plan: continue detox continue monitoring left hand
[2018-07-18] MEDS: THIAMINE HCL 100 MG TABLET (FP) PO SCH (22:24)
[2018-07-18] MEDS: risperiDONE 1 MG TABLET (FP) PO SCH (22:24)
[2018-07-18] MEDS: LIDOCAINE PATCH REMOVAL MC SCH (22:40)
[2018-07-19] MEDS: LORazepam 0.5 MG TABLET PO SCH ×2 (06:38→10:47)
[2018-07-19] MEDS: METHADONE HCL 40 MG DISPERSABLE TABLET PO SCH (07:38)
[2018-07-19] MEDS: LISINOPRIL 20 MG TABLET (FP) PO SCH (10:43)
[2018-07-19] MEDS: PRENATAL VITAMINS W/ FOLIC ACID TABLET (FP) PO SCH (10:43)
[2018-07-19] MEDS: LIDOCAINE 5% TOPICAL PATCH TP SCH (10:44)
--- NOTE | 2018-07-19 12:09 | DS ---
[facility] Detox Discharge Summary Admission Date: 07/16/18 Discharge Date: 07/19/18 - History Present History: Alcohol Dependence Additional Comments: 57 years old male admitted on 07/16/18 for alcohol withdrawal stabilization with ammonia elevation treated with lactulose, appears confused walking out the detox door 1:1 observation methadone 40 mg po daily - Physical Exam Results Vital Signs: Vital Signs Temperature 96.1 F L 07/19/18 09:37 Pulse Rate 126 H 07/19/18 09:37 Respiratory Rate 18 07/19/18 09:37 Blood Pressure 143/91 07/19/18 09:37 O2 Sat by Pulse Oximetry (%) Pertinent Admission Physical Exam Findings: alcohol withdrawal sx Laboratory Last Values WBC 3.6 K/mm3 (4.0-10.0) L 07/17/18 08:00 RBC 3.55 M/mm3 (4.00-5.60) L 07/17/18 08:00 Hgb 10.8 GM/dL (11.7-16.9) L 07/17/18 08:00 Hct 32.3 % (35.4-49) L 07/17/18 08:00 MCV 90.8 fl (80-96) 07/17/18 08:00 MCH 30.4 pg (25.7-33.7) 07/17/18 08:00 MCHC 33.4 g/dl (32.0-35.9) 07/17/18 08:00 RDW 13.4 % (11.9-15.9) 07/17/18 08:00 Plt Count 46 K/MM3 (134-434) L 07/17/18 08:00 MPV 12.1 fl (7.5-11.1) H 07/17/18 08:00 Sodium 138 mmol/L (136-145) 07/17/18 08:00 Potassium 3.6 mmol/L (3.5-5.1) 07/17/18 08:00 Chloride 103 mmol/L (98-107) 07/17/18 08:00 Carbon Dioxide 28 mmol/L (21-32) 07/17/18 08:00 Anion Gap 7 MMOL/L (8-16) L 07/17/18 08:00 BUN 9 mg/dL (7-18) 07/17/18 08:00 Creatinine 0.8 mg/dL (0.55-1.3) 07/17/18 08:00 Creat Clearance w eGFR > 60 (>60) 07/17/18 08:00 Random Glucose 103 mg/dL (74-106) 07/17/18 08:00 Calcium 8.4 mg/dL (8.5-10.1) L 07/17/18 08:00 Total Bilirubin 2.3 mg/dL (0.2-1) H 07/17/18 08:00 AST 156 U/L (15-37) H 07/17/18 08:00 ALT 58 U/L (13-61) 07/17/18 08:00 Alkaline Phosphatase 88 U/L (45-117) 07/17/18 08:00 Ammonia 99.30 umol/L (11-32) H 07/19/18 06:00 Total Protein 7.2 g/dl (6.4-8.2) 07/17/18 08:00 Albumin 2.6 g/dl (3.4-5.0) L 07/17/18 08:00 RPR Titer Nonreactive (NONREACTIVE) 07/17/18 08:00 lab noted low plat discontinue motrin high ammonia treated with lactulose ast elevation discontinue tylenal - Treatment Hospital Course: Detox Protocol Followed, Detoxed Safely, Responded well, Discharged Condition Good, Rehab Referral Accepted Patient has Accepted a Rehab Referral to: [facility] - Medication Discharge Medications: Ambulatory Orders Enalapril Maleate [Vasotec -] 10 mg PO DAILY #30 tablet 09/17/17 Methadone [Dolophine -] 40 mg PO DAILY@0600 #0 tablet MDD 40 09/20/17 Lisinopril [Zestril] 20 mg PO DAILY 07/16/18 clonazePAM [Klonopin -] 0.5 mg PO HS 07/16/18 - Diagnosis (1) Increased ammonia level Current Visit: Yes Status: Acute (2) Alcohol dependence with uncomplicated withdrawal Current Visit: Yes Status: Acute (3) Methadone maintenance therapy patient Current Visit: Yes Status: Chronic (4) HTN (hypertension) Current Visit: Yes Status: Chronic Qualifiers: Hypertension type: essential hypertension Qualified Code(s): I10 - Essential (primary) hypertension (5) Hepatitis C Current Visit: Yes Status: Chronic Qualifiers: Viral hepatitis chronicity: chronic Hepatic coma status: without hepatic coma Qualified Code(s): B18.2 - Chronic viral hepatitis C (6) Nicotine dependence Current Visit: Yes Status: Acute Qualifiers: Nicotine product type: cigarettes Substance use status: in withdrawal Qualified Code(s): F17.213 - Nicotine dependence, cigarettes, with withdrawal (7) Liver enzyme elevation Current Visit: Yes Status: Acute - AMA Did Patient Leave Against Medical Advice: No
[2018-07-19] MEDS: LACTULOSE 20 GM/30 ML UDC (FOR ORAL USE ONLY) PO SCH ×3 (13:20→20:11)
[2018-07-19 13:27] VITALS: BP 147/93; PULSE 132; TEMP 97.7
--- NOTE | 2018-07-19 14:04 | PN ---
[facility]Y Progress Note Note: 57 years old male admitted on 09/15/18 for alcohol withdrawal long history of hypertension in methadone maintenance treatment program at 40 mg po daily elevated ammonia level with alteration of mental status patient may return to [facility] for alcohol rehab after medically cleared information provided to Dr. Khan
[2018-07-19] MEDS ORDERED: clonazePAM 0.5 MG TABLET PO ONE (22:42)
[2018-07-20] MEDS: METHADONE HCL 40 MG DISPERSABLE TABLET PO SCH (07:34)
[2018-07-20] MEDS ORDERED: CEFTRIAXONE 1 GM in DEXTROSE 5%-WATER - 100 ML IVPB SCH (10:00)
[2018-07-20] MEDS: LACTULOSE 20 GM/30 ML UDC (FOR ORAL USE ONLY) PO SCH ×3 (15:09→22:49)
[2018-07-20] MEDS: LIDOCAINE 5% TOPICAL PATCH TP SCH (15:10)
[2018-07-20] MEDS: PRENATAL VITAMINS W/ FOLIC ACID TABLET (FP) PO SCH (15:10)
[2018-07-20] MEDS: LISINOPRIL 20 MG TABLET (FP) PO SCH (15:10)
[2018-07-20] MEDS: LIDOCAINE PATCH REMOVAL MC SCH (22:49)
[2018-07-20] MEDS: THIAMINE HCL 100 MG TABLET (FP) PO SCH (22:50)
[2018-07-20] MEDS: risperiDONE 1 MG TABLET (FP) PO SCH (22:50)
== END 2018-07-21 11:37 | disposition short-term general hospital (02) | DRG 773 ==
LOC: YASAS 05:34 → Y3N 10:00
PROVIDERS: ADMIT Surgery; ATTEND Surgery
PROC: HZ2ZZZZ Detoxification Services for Substance Abuse Treatment (ICD-10-PCS; principal; 2018-07-16)
DX: F10.230 Alcohol dependence with withdrawal, uncomplicated (principal); F10.24 Alcohol dependence with alcohol-induced mood disorder; F10.282 Alcohol dependence with alcohol-induced sleep disorder; F11.20 Opioid dependence, uncomplicated; F17.213 Nicotine dependence, cigarettes, with withdrawal; F31.9 Bipolar disorder, unspecified; I10 Essential (primary) hypertension; B18.2 Chronic viral hepatitis C; R94.5 Abnormal results of liver function studies; R41.82 Altered mental status, unspecified; E72.20 Disorder of urea cycle metabolism, unspecified; E78.5 Hyperlipidemia, unspecified; K74.60 Unspecified cirrhosis of liver; S62.305D Unspecified fracture of fourth metacarpal bone, left hand, subsequent encounter for fracture with routine healing; W19.XXXD Unspecified fall, subsequent encounter; Z86.69 Personal history of other diseases of the nervous system and sense organs
CPT/HCPCS: 36415; 71046-TC-FY; 73130-TC-LT-FY; 80053; 80307; 82140; 85027; 86593; 87804; 99282-25; J0735; J2794

== ENCOUNTER 2018-07-19 14:59 | Inpatient (IN) | payer OTHER ==
[2018-07-19 16:38] LABS: BASO % 1.1 % (0-2.0); EOS % 0.6 % (0-4.5); HEMATOCRIT 35.8 % (35.4-49); LYMPH % 36.1 % (8-40); MCH 31.2 pg (25.7-33.7); MCHC 33.6 g/dl (32.0-35.9); MEAN CELL VOLUME 92.7 fl (80-96); MONO % 20.9 % (3.8-10.2); NEUT % 41.3 % (42.8-82.8); RBC 3.86 M/mm3 (4.00-5.60); RDW 14.2 % (11.9-15.9); WHITE BLOOD COUNT 2.9 K/mm3 (4.0-10.0)
[2018-07-19 17:10] LABS: ALK PHOS 90 U/L (45-117); ANION GAP 7 MMOL/L (8-16); BILIRUBIN,TOTAL 2.2 mg/dL (0.2-1); BLOOD UREA NITROGEN 11 mg/dL (7-18); CALCIUM 8.8 mg/dL (8.5-10.1); CHLORIDE 106 mmol/L (98-107); CO2 26 mmol/L (21-32); CREATININE 0.9 mg/dL (0.55-1.3); GLUCOSE,RANDOM 94 mg/dL (74-106); POTASSIUM 4.7 mmol/L (3.5-5.1); SGOT/AST 183 U/L (15-37); SGPT/ALT 71 U/L (13-61); SODIUM 139 mmol/L (136-145); TOT PROT 8.5 g/dl (6.4-8.2)
[2018-07-19 17:11] LABS: URINE APPEARANCE CLEAR; URINE COLOR AMBER; URINE GLUCOSE (UA) NEGATIVE (NEGATIVE); URINE KETONE NEGATIVE (NEGATIVE); URINE LEUK ESTERASE 2+ (NEGATIVE); URINE NITRITE NEGATIVE (NEGATIVE); URINE PROTEIN 1+ (NEGATIVE); URINE UROBILINOGEN 4.0 E.U/dl mg/dL (0.2-1.0)
[2018-07-19 17:14] LABS: EPI CELLS RARE /HPF (FEW); URINE MUCUS RARE
--- NOTE | 2018-07-19 17:14 | PDOC ---
History of Present Illness - General History Source: Patient, Old Records Exam Limitations: Other (AMS) - History of Present Illness Initial Comments: 07/19/18 17:33 The patient is a 57 year old male with past medical history significant for HTN , alcohol dependent, on methadone 40 mg daily presents to the emergency department from [facility] with elevated ammonia and AMS. Per EMS, the patient was noted to have a ammonia level of 99 with altered mental status. The patient was at [facility] for alcohol detox, was admitted on 07/16/2018. History is limited due to altered mental status. <Myra Matos - Last Filed: 07/19/18 17:32> <Rick Chung - Last Filed: 07/19/18 19:25> - General Chief Complaint: Revisit, Lab Variance Stated Complaint: Revisit, Lab Variance Time Seen by Provider: 07/19/18 15:42 Past History <Myra Matos - Last Filed: 07/19/18 17:32> - Past Medical History Anemia: No Asthma: No Cancer: No Cardiac Disorders: No CVA: No COPD: No Diabetes: No GI Disorders: No Disorders: No HTN: Yes (on meds) Hypercholesterolemia: Yes (no meds) Kidney Stones: No Liver Disease: Yes (cirrhosis) Seizures: Yes (two years ago) Thyroid Disease: No - Surgical History Abdominal Surgery: No Appendectomy: No Cardiac Surgery: No Cholecystectomy: No Lung Surgery: No Neurologic Surgery: No Orthopedic Surgery: No - Reproductive History Testicular Surgery: No - Suicide/Smoking/Psychosocial Hx Smoking History: Current every day smoker Have you smoked in the past 12 months: Yes Number of Cigarettes Smoked Daily: 5 Information on smoking cessation initiated: No 'Breaking Loose' booklet given: 07/16/18 (give on floor) Hx Alcohol Use: Yes Drug/Substance Use Hx: Yes Substance Use Type: Alcohol Hx Substance Use Treatment: Yes (detox, rehab) <Rick Chung - Last Filed: 07/19/18 19:25> - Past Medical History Allergies/Adverse Reactions: Allergies Allergy/AdvReac Type Severity Reaction Status Date / Time No Known Allergies Allergy Verified 07/19/18 15:43 Home Medications: Ambulatory Orders Enalapril Maleate [Vasotec -] 10 mg PO DAILY #30 tablet 09/17/17 Methadone [Dolophine -] 40 mg PO DAILY@0600 #0 tablet MDD 40 05/14/18 Lisinopril [Zestril] 20 mg PO DAILY 07/16/18 clonazePAM [Klonopin -] 0.5 mg PO HS 07/16/18 Review of Systems - Review of Systems Able to Perform ROS?: Yes Comments:: 07/19/18 17:33 A complete review of 10 out of 10 review of systems is taken and is negative apart from what is previously mentioned below and in the HPI. <Myra Matos - Last Filed: 07/19/18 17:32> *Physical Exam - Vital Signs Last Vital Signs Temp Pulse Resp BP Pulse Ox 98.4 F 88 16 129/83 96 07/19/18 15:05 07/19/18 15:05 07/19/18 15:05 07/19/18 15:05 07/19/18 15:05 - Physical Exam Comments: 07/19/18 17:33 Vitals: Triage Vital signs reviewed General Appearance: no acute distress, well nourished well developed, Neck: Supple;No Nuchal rigidity Chest Wall: Nontender Cardiac: Regular rate and rhythm, no murmurs, no rubs, no gallops, Lungs: Clear to auscultation bilateral, good air movement bilaterally, Abdomen: +suprapubic discomfort. soft, nondistended. Extremities: Full range of motion to all extremities, no cyanosis, clubbing, or edema Skin: Warm and dry, no rashes or lesions, no petechiae Neuro: AOX1; Cranial Nerves 2-12 grossly intact, Strength intact to all extremities, Sensation intact to all extremities <Myra Matos - Last Filed: 07/19/18 17:32> - Vital Signs Last Vital Signs Temp Pulse Resp BP Pulse Ox 98.4 F 88 16 129/83 96 07/19/18 15:05 07/19/18 15:05 07/19/18 15:05 07/19/18 15:05 07/19/18 15:05 <Rick Chung - Last Filed: 07/19/18 19:25> Moderate Sedation - Procedure Monitoring Vital Signs: Procedure Monitoring Vital Signs Temperature 98.4 F 07/19/18 15:05 Pulse Rate 88 07/19/18 15:05 Respiratory Rate 16 07/19/18 15:05 Blood Pressure 129/83 07/19/18 15:05 O2 Sat by Pulse Oximetry (%) 96 07/19/18 15:05 <Myra Matos - Last Filed: 07/19/18 17:32> - Procedure Monitoring Vital Signs: Procedure Monitoring Vital Signs Temperature 98.4 F 07/19/18 15:05 Pulse Rate 88 07/19/18 15:05 Respiratory Rate 16 07/19/18 15:05 Blood Pressure 129/83 07/19/18 15:05 O2 Sat by Pulse Oximetry (%) 96 07/19/18 15:05 <Rick Chung - Last Filed: 07/19/18 19:25> ED Treatment Course - LABORATORY CBC & Chemistry Diagram: 07/19/18 16:26 07/19/18 16:10 - ADDITIONAL ORDERS Additional order review: Laboratory Results 07/19/18 07/19/18 07/19/18 16:26 16:24 16:10 Sodium 139 Potassium 4.7 Chloride 106 Carbon Dioxide 26 Anion Gap 7 L BUN 11 Creatinine 0.9 Creat Clearance w eGFR > 60 POC Glucometer 127 Random Glucose 94 Calcium 8.8 Total Bilirubin 2.2 H AST 183 H ALT 71 H Alkaline Phosphatase 90 Ammonia Troponin I < 0.02 Total Protein 8.5 H Albumin 3.0 L Urine Color Urine Appearance Urine pH Ur Specific [place] Urine Protein Urine Glucose (UA) Urine Ketones Urine Blood Urine Nitrite Urine Bilirubin Urine Urobilinogen Ur Leukocyte Esterase Urine WBC (Auto) Urine RBC (Auto) Ur Epithelial Cells Urine Mucus 07/19/18 07/19/18 16:05 16:00 Sodium Potassium Chloride Carbon Dioxide Anion Gap BUN Creatinine Creat Clearance w eGFR POC Glucometer Random Glucose Calcium Total Bilirubin AST ALT Alkaline Phosphatase Ammonia 50.10 H Troponin I Total Protein Albumin Urine Color [place] Urine Appearance Clear Urine pH 6.0 Ur Specific [place] 1.025 Urine Protein 1+ H Urine Glucose (UA) Negative Urine Ketones Negative Urine Blood Negative Urine Nitrite Negative Urine Bilirubin 2.0 Urine Urobilinogen 4.0 e.u/dl Ur Leukocyte Esterase 2+ H Urine WBC (Auto) 25 Urine RBC (Auto) 2 Ur Epithelial Cells Rare Urine Mucus Rare 07/19/18 07/19/18 16:26 16:24 RBC 3.86 L MCV 92.7 MCHC 33.6 RDW 14.2 Neutrophils % 41.3 L Lymphocytes % 36.1 Monocytes % 20.9 H Eosinophils % 0.6 Basophils % 1.1 POC Glucometer 127 <Myra Matos - Last Filed: 07/19/18 17:32> - LABORATORY CBC & Chemistry Diagram: 07/19/18 16:26 07/19/18 16:10 - ADDITIONAL ORDERS Additional order review: Laboratory Results 07/19/18 07/19/18 07/19/18 16:26 16:24 16:10 Sodium 139 Potassium 4.7 Chloride 106 Carbon Dioxide 26 Anion Gap 7 L BUN 11 Creatinine 0.9 Creat Clearance w eGFR > 60 POC Glucometer 127 Random Glucose 94 Calcium 8.8 Total Bilirubin 2.2 H AST 183 H ALT 71 H Alkaline Phosphatase 90 Ammonia Troponin I < 0.02 Total Protein 8.5 H Albumin 3.0 L Urine Color Urine Appearance Urine pH Ur Specific [place] Urine Protein Urine Glucose (UA) Urine Ketones Urine Blood Urine Nitrite Urine Bilirubin Urine Urobilinogen Ur Leukocyte Esterase 07/19/18 07/19/18 16:05 16:00 Sodium Potassium Chloride Carbon Dioxide Anion Gap BUN Creatinine Creat Clearance w eGFR POC Glucometer Random Glucose Calcium Total Bilirubin AST ALT Alkaline Phosphatase Ammonia 50.10 H Troponin I Total Protein Albumin Urine Color [place] Urine Appearance Clear Urine pH 6.0 Ur Specific [place] 1.025 Urine Protein 1+ H Urine Glucose (UA) Negative Urine Ketones Negative Urine Blood Negative Urine Nitrite Negative Urine Bilirubin 2.0 Urine Urobilinogen 4.0 e.u/dl Ur Leukocyte Esterase 2+ H 07/19/18 07/19/18 16:26 16:24 RBC 3.86 L MCV 92.7 MCHC 33.6 RDW 14.2 Neutrophils % 41.3 L Lymphocytes % 36.1 Monocytes % 20.9 H Eosinophils % 0.6 Basophils % 1.1 POC Glucometer 127 - RADIOLOGY Radiology Studies Ordered: Category Date Time Status HEAD CT WITHOUT CONTRAST [CT] Stat CT Scan 07/19/18 15:43 Taken CXRPORT [CHEST X-RAY PORTABLE*] [RAD] Stat Radiology 07/19/18 15:43 Taken <Rick Chung - Last Filed: 07/19/18 19:25> Medical Decision Making - Medical Decision Making 07/19/18 17:37 Plan Finger stick, CBC, Head CT, EKG, Urine Culture, CXR, Abd U/S <Myra Matos - Last Filed: 07/19/18 17:32> - Medical Decision Making 07/19/18 19:24 57 years old with past medical history significant for hypertension alcohol dependence methadone sent from [facility] for altered mental status and elevated ammonia Patient remains altered here head CT negative labs notable for elevated bili and LFTs which are somewhat chronic for patient an ultrasound was ordered His ammonia level was ordered he had a UTI in his urinalysis Patient treated with banana bag IV fluids and ceftriaxone will admit the hospital for altered mental status that was secondary to infectious/toxic metabolic encephalopathy. <Rick Chung - Last Filed: 07/19/18 19:25> *DC/Admit/Observation/Transfer - Attestations Scribe Attestion: 07/19/18 17:35 Documentation prepared by Myra Matos, acting as medical dermatologist for Rick Chung MD. <Myra Matos - Last Filed: 07/19/18 17:32> - Discharge Dispostion Decision to Admit order: Yes <Rick Chung - Last Filed: 07/19/18 19:25> Diagnosis at time of Disposition: Increased ammonia level, Encephalopathy Alcohol dependence Qualifiers: Substance use status: uncomplicated Qualified Code(s): F10.20 - Alcohol dependence, uncomplicated - Referrals Referrals: Lynnette Petersen MD [Primary Care Provider] - - Patient Instructions - Post Discharge Activity
[2018-07-19] MEDS ORDERED: FOLIC ACID INJECTION - 1 MG, THIAMINE HCL 100 MG, MULTIVIT INJECTION ADULT 10 ML in SOD... IVPB ONE (17:24)
[2018-07-19] MEDS ORDERED: CEFTRIAXONE 1 GM in DEXTROSE 5%-WATER - 100 ML IVPB ONE (17:24)
[2018-07-19] MEDS ORDERED: SODIUM CHLORIDE 0.9% 1000 ML INFUS.BAG IV ONE (17:24)
[2018-07-19] MEDS ORDERED: CEFTRIAXONE 1 GM/50 ML BAG ONE ×2 (17:41→20:10)
[2018-07-19 17:50] LABS: MEAN PLT VOLUME 12.6 fl (7.5-11.1); PLATELET COUNT 83 K/MM3 (134-434)
[2018-07-19 17:52] LABS: PLATELET ESTIMATE MOD DECREASED
--- NOTE | 2018-07-19 19:45 | PN ---
Teaching Attending Note Name of Resident: Ravi Ordonez ATTENDING PHYSICIAN STATEMENT I saw and evaluated the patient. I reviewed the resident's note and discussed the case with the resident. I agree with the resident's findings and plan as documented. SUBJECTIVE: Patient seen and examined; please refer to resident note for further historical information. Briefly, this is a 49 y/o male presenting from [facility] for altered mental status and abdominal pain (r-sided). Admitted to [facility] for EtOH WD. He states that it is 1961 and that Josue Daley is president; he is concerned he has Syphilis. He continues to complain he didn't get his Klonopin at [facility]; was not on his med list. Unsure if he was recieving there but he is documented as being on 0.5 at home. Unreliable and poor history. He is found to have 1cm CBD on US and was noted to have elevated AST (>>ALT) and Alk Phos (which has been trending up). Pancytopenic on CBC. Bipolar, HTN, Hep C (? if treated), GERD, Encephalopathy, +PPD (treated) Klonopin 0.5, methadone 40, Lipril, clonidine. It is not clear if he was getting the klonopin. OBJECTIVE: VS, labs, imaging reviewed NAD, AAO, resting comfortably in bed. Abdominal pain to palpation; non-distended, +BS NC AT EOMI; scleral icterus noted RRR s1/2 no mgr Lungs CTAB, w/ sym exp CN 2-12 wnl, no fnd Tangential speech pattern with loose associations, orientated to self, pleasant and not agitated. Not confabulating. Labs show pancytopenia, elevated NH4 (improved from prior), T bili elevated 2.2 (2.3 last value), LFTs with AST>ALT, 183 Alk Phos, 2+ LE 1+ protein with 25 WBC. ASSESSMENT AND PLAN: Patient presents with AMS; found to have elevated NH4 (trending down with no asterixis), possible UTI, and abdominal pain with elevated LFTs and dilated CBD. Initially tachy; afebrile now and hemodynamically stable 1) AMS -He is speaking tangentially with evident confusion and disorientation. Broad ddx. Likely some for toxic metabolic encephalopathy -In terms of hepatic encephalopathy, he is not having asterixis and his NH4 downtrended; will keep on lactulose -In terms of potential EtOH WD component, CIWA is only 4 in ER with no hemodynamic instability or noted hallucinations. Continue [facility] protocol and monitor. Thiamine and folate; consider any input from a process like [employer]' s, etc. -Though unreliable, he complains about not getting his BZD at [facility] and is known to be on home klonopin. Cutting the dose in half and monitoring tolerance. To r/o any benzo WD, etc. can involve psychiatry. Will cut methadone from 40 to 20 tomorrow to avoid oversedation -In terms of potential infectious etiology, no meningeal signs but ?+UA with unreliable historian. Empiric ceftriaxone; DC if cx's negative -RPR negative; checking ESR, CRP, B12, Folate, avoiding drugs that could precipitate worsening this. -Neuro checks, seizure precautions 2) Potential UTI -Ceftriaxone, awaiting cx's 3) Potential hepatic encephalopathy -No asterixis, NH4 trending down. Monitor. 4) Dilated bile duct, RUQ pain -US results reviewed; MRCP w and w/o contrast given abdominal pain with eleveated alk phos, etc. Likely cirrhosis seen on US. Consider involving GI nonurgently 5) Likely Cirrhosis -Hx EtOH abuse and Hep C (tx status not known). Will need OP GI followup. 6) Benzodiazapine Use -Mentioned above; restarting at 1/2 dose to avoid oversedation but prevent WD. 7) Opiate Abuse -1/2 dose methadone tomorrow (full dose if improved) 8) Transaminitis -Likely alcoholic hepatitis 9) Alcohol Abuse -Day 3; on CIWA 10) Pancytopenia -Likely 2/2 EtOH/Hep C 11) Hx Hep C -Obtain records to see if ever treated; HIV screen for this year 12) Hypoalbuminemia -Check prealbumin, consult nutrition Full Code
--- NOTE | 2018-07-19 19:47 | HP ---
CHIEF COMPLAINT: Elevated Ammonia with Altered mental status PCP: HISTORY OF PRESENT ILLNESS: Pt. is a 57 y.o. M coming from [facility] for elevated Ammonia level and altered mental status. Pt. thought he got last night. Pt. oriented only to name. Pt. states he got Syphilis last night, per chart review RPR is negative. Unable to obtain reliable history from Pt. ER course was notable for: (1)Abdominal US, CBC, CMP (2)Head CT Neg. (3)Ceftriaxone Recent Travel: PAST MEDICAL HISTORY: HTN, EtOH abuse, Bipolar Disorder, Hep C, GERD, Hx. of positive PPD(treated) PAST SURGICAL HISTORY: Unable to obtain Social History: Smoking: Unable to obtain-Per Chart review 1 pack/day Alcohol: Unable to obtain Drugs: Unable to obtain Family History: Unable to obtain Allergies No Known Allergies Allergy (Verified 07/19/18 15:43) HOME MEDICATIONS: Home Medications Medication Instructions Recorded Enalapril Maleate [Vasotec -] 10 mg PO DAILY #30 tablet 09/17/17 Methadone [Dolophine -] 40 mg PO DAILY@0600 #0 tablet MDD 09/20/17 40 Lisinopril [Zestril] 20 mg PO DAILY 07/16/18 clonazePAM [Klonopin -] 0.5 mg PO HS 07/16/18 REVIEW OF SYSTEMS CONSTITUTIONAL: Absent: fever, chills, diaphoresis, generalized weakness, malaise, loss of appetite, weight change HEENT: Absent: rhinorrhea, nasal congestion, throat pain, throat swelling, difficulty swallowing, mouth swelling, ear pain, eye pain, visual changes CARDIOVASCULAR: Absent: chest pain, syncope, palpitations, irregular heart rate, lightheadedness , peripheral edema RESPIRATORY: Absent: cough, shortness of breath, dyspnea with exertion, orthopnea, wheezing, stridor, hemoptysis GASTROINTESTINAL: Present: abdominal pain Absent: abdominal distension, nausea, vomiting, diarrhea, constipation, melena , hematochezia GENITOURINARY: Absent: dysuria, frequency, urgency, hesitancy, hematuria, flank pain, genital pain MUSCULOSKELETAL: Absent: myalgia, arthralgia, joint swelling, back pain, neck pain SKIN: Absent: rash, itching, pallor HEMATOLOGIC/IMMUNOLOGIC: Absent: easy bleeding, easy bruising, lymphadenopathy, frequent infections ENDOCRINE: Absent: unexplained weight gain, unexplained weight loss, heat intolerance, cold intolerance NEUROLOGIC: Absent: headache, focal weakness or paresthesias, dizziness, unsteady gait, seizure, mental status changes, bladder or bowel incontinence PSYCHIATRIC: Absent: anxiety, depression, suicidal or homicidal ideation, hallucinations. PHYSICAL EXAMINATION Vital Signs - 24 hr 07/19/18 15:05 Temperature 98.4 F Pulse Rate 88 Respiratory 16 Rate Blood Pressure 129/83 O2 Sat by Pulse 96 Oximetry (%) GENERAL: In mild distress, A&O x 1 (to name only) HEAD: Normal with no signs of gross trauma. EYES: Pupils equal, round and reactive to light, extraocular movements intact, sclera icteric EARS, NOSE, THROAT: Ears normal, nares patent, oropharynx clear without exudates. Moist mucous membranes. NECK: Normal range of motion, supple without lymphadenopathy, JVD, or masses. LUNGS: Decreased Breath sounds, poor effort? No crackles or wheezes. No accessory muscle use. HEART: Regular rate and rhythm, normal S1 and S2 without murmur, rub or gallop. ABDOMEN: Soft, RUQ and epigastric tenderness, not distended, normoactive bowel sounds, hepatomegaly, dull to percussion MUSCULOSKELETAL: No CVA tenderness. UPPER EXTREMITIES: 2+ radial pulses, warm, well-perfused. No cyanosis. No clubbing. No peripheral edema. LOWER EXTREMITIES: warm, well-perfused. No calf tenderness. No peripheral edema. NEUROLOGICAL: AMS PSYCHIATRIC: Cooperative. Good eye contact. Appropriate mood and affect. SKIN: Warm, dry, normal turgor, cuts and bruises of varying age, poor hand hygiene, normal capillary refill. Laboratory Results - last 24 hr 07/19/18 07/19/18 07/19/18 16:00 16:05 16:10 WBC RBC Hgb Hct MCV MCH MCHC RDW Plt Count MPV Absolute Neuts (auto) Total Counted Neutrophils % Neutrophils % (Manual) Lymphocytes % Lymphocytes % (Manual) Monocytes % Monocytes % (Manual) Eosinophils % Basophils % Nucleated RBC % Differential Comment Platelet Estimate Platelet Comment Sodium 139 Potassium 4.7 Chloride 106 Carbon Dioxide 26 Anion Gap 7 L BUN 11 Creatinine 0.9 Creat Clearance w eGFR > 60 POC Glucometer Random Glucose 94 Calcium 8.8 Total Bilirubin 2.2 H AST 183 H ALT 71 H Alkaline Phosphatase 90 Ammonia 50.10 H Troponin I Total Protein 8.5 H Albumin 3.0 L Urine Color Beth Urine Appearance Clear Urine pH 6.0 Ur Specific [place] 1.025 Urine Protein 1+ H Urine Glucose (UA) Negative Urine Ketones Negative Urine Blood Negative Urine Nitrite Negative Urine Bilirubin 2.0 Urine Urobilinogen 4.0 e.u/dl Ur Leukocyte Esterase 2+ H Urine WBC (Auto) 25 Urine RBC (Auto) 2 Ur Epithelial Cells Rare Urine Mucus Rare 07/19/18 07/19/18 07/19/18 16:24 16:26 16:26 WBC 2.9 L RBC 3.86 L Hgb 12.0 Hct 35.8 MCV 92.7 MCH 31.2 MCHC 33.6 RDW 14.2 Plt Count 83 L D MPV 12.6 H Absolute Neuts (auto) 1.2 L Total Counted 100 Neutrophils % 41.3 L Neutrophils % (Manual) 46.0 Lymphocytes % 36.1 Lymphocytes % (Manual) 34.0 Monocytes % 20.9 H Monocytes % (Manual) 20 H Eosinophils % 0.6 Basophils % 1.1 Nucleated RBC % 0 Differential Comment Man diff performed Platelet Estimate Mod decreased Platelet Comment Sodium Potassium Chloride Carbon Dioxide Anion Gap BUN Creatinine Creat Clearance w eGFR POC Glucometer 127 Random Glucose Calcium Total Bilirubin AST ALT Alkaline Phosphatase Ammonia Troponin I < 0.02 Total Protein Albumin Urine Color Urine Appearance Urine pH Ur Specific [place] Urine Protein Urine Glucose (UA) Urine Ketones Urine Blood Urine Nitrite Urine Bilirubin Urine Urobilinogen Ur Leukocyte Esterase Urine WBC (Auto) Urine RBC (Auto) Ur Epithelial Cells Urine Mucus ASSESSMENT/PLAN: Pt. is a 57 y.o. M w/ PMHx. of HTN, EtOH abuse, Bipolar Disorder, Hep C, GERD, Hx. of positive PPD(treated) presents from [facility] for AMS 2/2 elevated ammonia levels. #Uremic Encephalopathy vs. Benzo withdrawal -NH3 trending down now 50 -c/w lactulose -Pt. has not received home dose of Klonipin today, will give half home dose -f/u Psych consult (Dr. Heredia) for Benzo withdrawal -c/w IVF -Head CT Negative -Abd. US shows CBD dilatation to 1 cm, pancreatic duct dilatation, trace free fluid and hepatic cirrhosis -f/u TSH -Low suspicion for EtoH withdrawal given time frame of [facility] admission 3 days prior, CIWA score: 4, will initiate librium protocol #Positive UA -Pt. is altered so unable to obtain accurate hx. -Given 2gm Ceftriaxone- Pt. unreliable historian -start Ceftriaxone 1gm Daily -chronically low WBCs vs. acute infection -afebrile -f/u UCx. and BCx. #Transaminitis likely 2/2 alcoholic hepatitis -high suspicion for alcoholic hepatitis however given Pt. Etoh Hx must rule out pancreatic mass given elevated ALP, CBD dilatation w/o presence of stones in gallbladder and abdominal pain. -f/u MRCP w/wo contrast--> Pt. unable to answer checklist at this time. -f/u Hep C results- Hx. of Ddx. of Hep C unclear if Pt. was treated -f/u Lipase -f/u ESR, CRP, GGT, Direct Bilirubin, B12, Thiamine, Folate #Pancytopenia likely 2/2 EtOH abuse -f/u Fe, Ferritin and TIBC -f/u reticulocyte count #Hypoalbuminemia likely 2/2 EtOH abuse -consider nutrition consult -consider supplemental protein in nutrition #FEN -c/w LR @ 100 -monitor electrolytes, replete as needed -NPO #DVT Ppx. -Mechanical Ppx only given Platelets of 83 and decreased liver function #Dispo Observation and then return to [facility] in AM when stable and not altered Visit type - Emergency Visit Emergency Visit: Yes ED Registration Date: 07/19/18 Care time: The patient presented to the Emergency Department on the above date and was hospitalized for further evaluation of their emergent condition. - New Patient This patient is new to me today: Yes Date on this admission: 07/20/18 - Critical Care Critical Care patient: No
[2018-07-19] MEDS ORDERED: CEFTRIAXONE 1 GM in DEXTROSE 5%-WATER - 50 ML IVPB ONE (20:00)
[2018-07-19] MEDS ORDERED: LACTULOSE 20 GM/30 ML UDC (FOR ORAL USE ONLY) PO SCH (22:00)
[2018-07-19] MEDS ORDERED: clonazePAM 0.5 MG TABLET PO ONE (23:05)
[2018-07-19] MEDS ORDERED: LACTULOSE 20 GM/30 ML UDC (FOR ORAL USE ONLY) ONE (23:06)
[2018-07-19] MEDS ORDERED: clonazePAM 0.5 MG TABLET ONE (23:30)
[2018-07-19] MEDS: LACTATED RINGERS SOLUTION 1,000 ML/1,000 ML INFUS.BAG IV SCH (23:37)
[2018-07-20 00:50] LABS: ALBUMIN 2.4 g/dl (3.4-5.0); ALK PHOS 78 U/L (45-117); ANION GAP 4 MMOL/L (8-16); BILIRUBIN,TOTAL 1.6 mg/dL (0.2-1); BLOOD UREA NITROGEN 9 mg/dL (7-18); CHLORIDE 110 mmol/L (98-107); CO2 27 mmol/L (21-32); CREATININE 0.7 mg/dL (0.55-1.3); GLUCOSE,RANDOM 79 mg/dL (74-106); LIPASE 272 U/L (73-393); POTASSIUM 3.8 mmol/L (3.5-5.1); SGOT/AST 131 U/L (15-37); SGPT/ALT 58 U/L (13-61); SODIUM 141 mmol/L (136-145); TOT PROT 6.8 g/dl (6.4-8.2)
[2018-07-20 01:23] LABS: BILIRUBIN,DIRECT 1.3 mg/dL (0.0-0.2)
[2018-07-20 05:06] VITALS: BMI 21.9
[2018-07-20] MEDS: LACTULOSE 20 GM/30 ML UDC (FOR ORAL USE ONLY) PO SCH ×4 (10:06→21:45)
[2018-07-20] MEDS: THIAMINE HCL 200 MG/2 ML VIAL IM SCH (10:06)
[2018-07-20] MEDS ORDERED: METHADONE HCL 10 MG TABLET PO ONE (10:08)
[2018-07-20] MEDS ORDERED: MAGNESIUM SULF 50% (8.12 MEQ/2 ML-1 GM VIAL) IVPB ONE (10:15)
--- NOTE | 2018-07-20 11:10 | EKG ---
Test Reason : Blood Pressure : / mmHG Vent. Rate : 092 BPM Atrial Rate : 092 BPM P-R Int : 142 ms QRS Dur : 078 ms QT Int : 370 ms P-R-T Axes : 041 -17 009 degrees QTc Int : 457 ms NORMAL SINUS RHYTHM NORMAL ECG WHEN COMPARED WITH ECG OF 31-AUG-2017 22:05, NO SIGNIFICANT CHANGE WAS FOUND Confirmed by TALA MILLS MD ([id number]) on 07/20/2018 11:10:11 AM Referred By: Confirmed By:TALA MILLS MD
--- NOTE | 2018-07-20 11:25 | CON.GI ---
Consult Consult Specialty:: Gastroenterology Referred by:: Dr. Johnson Reason for Consultation:: Dilated common bile duct and elevated GGT. - History of Present Illness Chief Complaint: Patient admitted for alcoholic hepatitis. NOted to ahve dilated CBD on ultrasound. History of Present Illness: Patient with uncertain past medical and surgical history with abdominal pain yesterday in setting of alcohol withdrawal treatment and elevated ammonia, liver chemistries consistent with alcoholic hepatitis and binu-systemic encephalopathy. Presently comfortable and just completed breakfast when I saw him (~1030 AM). No pain. Comfortable. Extent of EtOH history uncertain. No prior treatment for liver disease that he is aware of, and no prior surgery that he is aware of, but not most reliable historian. - History Source History Provided By: Patient Limitations to Obtaining History: Poor Historian - Alcohol/Substance Use Hx Alcohol Use: Yes - Smoking History Smoking history: Current every day smoker Have you smoked in the past 12 months: Yes Aproximately how many cigarettes per day: 5 Home Medications - Allergies Allergies/Adverse Reactions: Allergies Allergy/AdvReac Type Severity Reaction Status Date / Time No Known Allergies Allergy Verified 07/19/18 15:43 - Home Medications Home Medications: Ambulatory Orders Enalapril Maleate [Vasotec -] 10 mg PO DAILY #30 tablet 09/17/17 Methadone [Dolophine -] 40 mg PO DAILY@0600 #0 tablet MDD 40 09/20/17 Lisinopril [Zestril] 20 mg PO DAILY 07/16/18 clonazePAM [Klonopin -] 0.5 mg PO HS 07/16/18 Family Disease History - Family Disease History Family Disease History: Other: Father (ETOH DEPENDENT AND ), Mother (ETOH DEPENDENT AND ), Brother (four - living), Sister (one - living - HIV), Son ( two), Daughter (four) Review of Systems - Review of Systems Constitutional: denies: Chills, Fever Gastrointestinal: denies: Abdominal Pain, Diarrhea, Melena, Nausea, Vomiting, Vomiting Blood Neurological: reports: Confusion Physical Exam-GI Vital Signs: Vital Signs Temperature 98.0 F 07/20/18 10:00 Pulse Rate 78 07/20/18 10:00 Respiratory Rate 20 07/20/18 10:00 Blood Pressure 166/86 07/20/18 10:00 O2 Sat by Pulse Oximetry (%) 98 07/20/18 04:59 Constitutional: Yes: Well Nourished, No Distress Eyes: No: Sclera Icterus Cardiovascular: Yes: Regular Rate and Rhythm, S1, S2. No: Murmur, Rub Respiratory: Yes: CTA Bilaterally. No: Wheezes Gastrointestinal Inspection: Yes: WNL, Scars, Other (No surgical scars, but left sided abdominal scar/keloid noted.) ...Auscultate: Yes: Normoactive Bowel Sounds ...Palpate: Yes: Soft. No: Hepatomegaly, Mass, Splenomegaly, Tenderness Labs: CBC, BMP 07/19/18 16:26 07/20/18 00:06 Imaging - Results Chest X-ray: Report Reviewed (Dilated CBD to 10 mm; GB not visualized (no prior history of CCx); main pancreatic duct slightly dilated.) Problem List - Problems (1) Common bile duct dilatation Code(s): K83.8 - OTHER SPECIFIED DISEASES OF BILIARY TRACT (2) Alcohol dependence Code(s): F10.20 - ALCOHOL DEPENDENCE, UNCOMPLICATED Qualifiers: Substance use status: uncomplicated Qualified Code(s): F10.20 - Alcohol dependence, uncomplicated (3) Hepatitis C Code(s): B19.20 - UNSPECIFIED VIRAL HEPATITIS C WITHOUT HEPATIC COMA Qualifiers: Viral hepatitis chronicity: chronic Hepatic coma status: without hepatic coma Qualified Code(s): B18.2 - Chronic viral hepatitis C (4) Liver enzyme elevation Code(s): R74.8 - ABNORMAL LEVELS OF OTHER SERUM ENZYMES Assessment/Plan Would obtain MRCP to better define ductal anatomy of biliary and pancreatic duct systems. Would also obtain abdominal CT Likely with portal hypertension given low platelet count, albumin, and elevated ammonia level, indicative of portosystemic encephaolpathy Supportive care for alcoholic heapatitis Continue BDZ's as needed for EtOH withdrawal should this become an issue Continue thiamine Lactulose dosed to GI effect (could also consider rifaximin should lactulose prove too cumbersome or ineffective) Will follow with you
[2018-07-20] MEDS: LACTATED RINGERS SOLUTION 1,000 ML/1,000 ML INFUS.BAG IV SCH (13:50)
--- NOTE | 2018-07-20 13:52 | PN ---
Physical Exam: SUBJECTIVE: Patient seen and examined at bedside. Highly confused, does not understand reason for NPO restriction despite multiple provisions of explanation. No acute complaints. OBJECTIVE: Vital Signs Period Temp Pulse Resp BP Sys/Ledbetter Pulse Ox Last 24 Hr 97.9 F-98.4 F 61-88 16-20 115-166/69-97 96-98 GENERAL: oriented only to self, NAD HEENT: NC/AT, PERRLA, EOMI, MMM NECK: Trachea midline, full range of motion, supple. LUNGS: CTA b/l HEART: RRR no m/r/g ABDOMEN: +bs, soft, NT, ND EXTREMITIES: 2+ pulses, warm, well-perfused, no edema. 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 SKIN: Warm, dry, normal turgor, no rashes or lesions noted Laboratory Results - last 24 hr 07/19/18 07/19/18 07/19/18 16:00 16:05 16:10 WBC RBC Hgb Hct MCV MCH MCHC RDW Plt Count MPV Absolute Neuts (auto) Total Counted Neutrophils % Neutrophils % (Manual) Lymphocytes % Lymphocytes % (Manual) Monocytes % Monocytes % (Manual) Eosinophils % Basophils % Nucleated RBC % Differential Comment Platelet Estimate Platelet Comment ESR Retic Count Sodium 139 Potassium 4.7 Chloride 106 Carbon Dioxide 26 Anion Gap 7 L BUN 11 Creatinine 0.9 Creat Clearance w eGFR > 60 POC Glucometer Random Glucose 94 Calcium 8.8 Magnesium Total Bilirubin 2.2 H Direct Bilirubin GGT AST 183 H ALT 71 H Alkaline Phosphatase 90 Ammonia 50.10 H Troponin I C-Reactive Protein Total Protein 8.5 H Albumin 3.0 L Lipase Vitamin B12 Serum Folate TSH Urine Color Beth Urine Appearance Clear Urine pH 6.0 Ur Specific [place] 1.025 Urine Protein 1+ H Urine Glucose (UA) Negative Urine Ketones Negative Urine Blood Negative Urine Nitrite Negative Urine Bilirubin 2.0 Urine Urobilinogen 4.0 e.u/dl Ur Leukocyte Esterase 2+ H Urine WBC (Auto) 25 Urine RBC (Auto) 2 Ur Epithelial Cells Rare Urine Mucus Rare 07/19/18 07/19/18 07/19/18 16:24 16:26 16:26 WBC 2.9 L RBC 3.86 L Hgb 12.0 Hct 35.8 MCV 92.7 MCH 31.2 MCHC 33.6 RDW 14.2 Plt Count 83 L D MPV 12.6 H Absolute Neuts (auto) 1.2 L Total Counted 100 Neutrophils % 41.3 L Neutrophils % (Manual) 46.0 Lymphocytes % 36.1 Lymphocytes % (Manual) 34.0 Monocytes % 20.9 H Monocytes % (Manual) 20 H Eosinophils % 0.6 Basophils % 1.1 Nucleated RBC % 0 Differential Comment Man diff performed Platelet Estimate Mod decreased Platelet Comment ESR Retic Count Sodium Potassium Chloride Carbon Dioxide Anion Gap BUN Creatinine Creat Clearance w eGFR POC Glucometer 127 Random Glucose Calcium Magnesium Total Bilirubin Direct Bilirubin GGT AST ALT Alkaline Phosphatase Ammonia Troponin I < 0.02 C-Reactive Protein Total Protein Albumin Lipase Vitamin B12 Serum Folate TSH Urine Color Urine Appearance Urine pH Ur Specific [place] Urine Protein Urine Glucose (UA) Urine Ketones Urine Blood Urine Nitrite Urine Bilirubin Urine Urobilinogen Ur Leukocyte Esterase Urine WBC (Auto) Urine RBC (Auto) Ur Epithelial Cells Urine Mucus 07/19/18 07/20/18 07/20/18 23:57 00:06 00:06 WBC RBC Hgb Hct MCV MCH MCHC RDW Plt Count MPV Absolute Neuts (auto) Total Counted Neutrophils % Neutrophils % (Manual) Lymphocytes % Lymphocytes % (Manual) Monocytes % Monocytes % (Manual) Eosinophils % Basophils % Nucleated RBC % Differential Comment Platelet Estimate Platelet Comment ESR Retic Count Sodium 141 Potassium 3.8 Chloride 110 H Carbon Dioxide 27 Anion Gap 4 L BUN 9 Creatinine 0.7 Creat Clearance w eGFR > 60 POC Glucometer Random Glucose 79 Calcium 8.0 L Magnesium 1.4 L Total Bilirubin 1.6 H Direct Bilirubin 1.3 H GGT 190 H AST 131 H ALT 58 Alkaline Phosphatase 78 Ammonia Troponin I C-Reactive Protein Total Protein 6.8 Albumin 2.4 L Lipase 272 Vitamin B12 Serum Folate 69 H TSH Urine Color Urine Appearance Urine pH Ur Specific [place] Urine Protein Urine Glucose (UA) Urine Ketones Urine Blood Urine Nitrite Urine Bilirubin Urine Urobilinogen Ur Leukocyte Esterase Urine WBC (Auto) Urine RBC (Auto) Ur Epithelial Cells Urine Mucus 07/20/18 07/20/18 07/20/18 00:06 00:06 06:00 WBC RBC Hgb Hct MCV MCH MCHC RDW Plt Count MPV Absolute Neuts (auto) Total Counted Neutrophils % Neutrophils % (Manual) Lymphocytes % Lymphocytes % (Manual) Monocytes % Monocytes % (Manual) Eosinophils % Basophils % Nucleated RBC % Differential Comment Platelet Estimate Platelet Comment ESR 13 Retic Count Sodium Potassium Chloride Carbon Dioxide Anion Gap BUN Creatinine Creat Clearance w eGFR POC Glucometer Random Glucose Calcium Magnesium Total Bilirubin Direct Bilirubin GGT AST ALT Alkaline Phosphatase Ammonia Troponin I C-Reactive Protein < 0.3 Total Protein Albumin Lipase Vitamin B12 1739 H Serum Folate TSH 3.94 H Urine Color Urine Appearance Urine pH Ur Specific [place] Urine Protein Urine Glucose (UA) Urine Ketones Urine Blood Urine Nitrite Urine Bilirubin Urine Urobilinogen Ur Leukocyte Esterase Urine WBC (Auto) Urine RBC (Auto) Ur Epithelial Cells Urine Mucus 07/20/18 06:00 WBC RBC Hgb Hct MCV MCH MCHC RDW Plt Count MPV Absolute Neuts (auto) Total Counted Neutrophils % Neutrophils % (Manual) Lymphocytes % Lymphocytes % (Manual) Monocytes % Monocytes % (Manual) Eosinophils % Basophils % Nucleated RBC % Differential Comment Platelet Estimate Platelet Comment ESR Retic Count 3.08 H Sodium Potassium Chloride Carbon Dioxide Anion Gap BUN Creatinine Creat Clearance w eGFR POC Glucometer Random Glucose Calcium Magnesium Total Bilirubin Direct Bilirubin GGT AST ALT Alkaline Phosphatase Ammonia Troponin I C-Reactive Protein Total Protein Albumin Lipase Vitamin B12 Serum Folate TSH Urine Color Urine Appearance Urine pH Ur Specific [place] Urine Protein Urine Glucose (UA) Urine Ketones Urine Blood Urine Nitrite Urine Bilirubin Urine Urobilinogen Ur Leukocyte Esterase Urine WBC (Auto) Urine RBC (Auto) Ur Epithelial Cells Urine Mucus Active Medications Generic Name Dose Route Start Last Admin Trade Name Freq PRN Reason Stop Dose Admin Lactated Ringer's 1,000 ml in 1,000 mls @ 100 mls/hr 07/19/18 23:00 07/19/18 23:37 Lactated Ringers Solution IV 100 mls/hr ASDIR JESSICA Administration Lactulose 20 gm 07/20/18 09:44 07/20/18 10:06 Cephulac (Oral Use) PO 20 gm QID JESSICA Administration Thiamine HCl 200 mg 07/20/18 10:00 07/20/18 10:06 Vitamin B1 Injection - IM 200 mg DAILY JESSICA Administration ASSESSMENT/PLAN: 57 y/o M w/ PMHx of HTN, EtOH abuse, Bipolar Disorder, Hep C, GERD, Hx. of positive PPD(treated) presents from [facility] for AMS 2/2 elevated ammonia levels. #Hepatic Encephalopathy -NH3 trending down now 50 -c/w lactulose -GI consulted -c/w IVF -Head CT Negative -Abd US shows CBD dilatation to 1 cm, pancreatic duct dilatation, trace free fluid and hepatic cirrhosis -mild LFT derangement in alcoholic hepatitis pattern -direct and total hyperbilirubinemia -elevated GGT -pending MRCP #mildly positive UA -Pt. is altered so unable to obtain accurate hx. -Given 2gm Ceftriaxone- Pt. unreliable historian -await C/S for further therapy #Pancytopenia likely 2/2 EtOH abuse -f/u Fe, Ferritin and TIBC -f/u reticulocyte count #Hypoalbuminemia likely 2/2 EtOH abuse -consider nutrition consult -consider supplemental protein in nutrition #FEN -c/w LR @ 100 -monitor electrolytes, replete as needed -Na-controlled diet #PPx -DVT: Mechanical Ppx only given Platelets of 83 and decreased liver function -GI: not indicated #code -full #Dispo -cont to monitor on med/surg Visit type - Emergency Visit Emergency Visit: No - New Patient This patient is new to me today: Yes Date on this admission: 07/20/18 - Critical Care Critical Care patient: No
--- NOTE | 2018-07-20 15:15 | CON.PSY ---
Psychiatry Consult Chief Complaint: 57 year old male with long history of Alcohol abuse and dependency. On methadone, came from [facility]. Patient seen for confusion and competency. Symptoms: reports: Irritability - Previous Psychiatric Treatment Outpatient: None Inpatient: None, Within the last 12 months - Previous Substance Abuse Treatment Outpatient: Less than 6 mos ago Inpatient: Within the last 12 months - Reason for Previous Treatment Reason for Previous Treatment: Drug Abuse, Alcohol Abuse, Heroin or Other Narcotics - Current Medications Current Medications: Active Medications Lactated Ringer's (Lactated Ringers Solution) 1,000 ml in 1,000 mls @ 100 mls/ hr IV ASDIR [facility] Last Admin: 07/20/18 13:50 Dose: 100 mls/hr Lactulose (Cephulac (Oral Use)) 20 gm PO QID [facility] Last Admin: 07/20/18 13:47 Dose: 20 gm Thiamine HCl (Vitamin B1 Injection -) 200 mg IM DAILY [facility] Last Admin: 07/20/18 10:06 Dose: 200 mg - Allergies Allergies: Allergies Allergy/AdvReac Type Severity Reaction Status Date / Time No Known Allergies Allergy Verified 07/19/18 15:43 - Current Living Status Usual Living Arrangement: Alone - Current Mental Status Evaluation Appearance: Disheveled Attitude: Guarded - Affect Affect: Constrictive - Mood Mood: Irritable - Speech/Language Expressive: Coherent - Psychomotor Activity Psychomotor Activity: Slowed - Thought Process Thought Process: Circumstantial - Thought Content Hallucinations: Absent Delusions: Absent - Self Perception Self Perception: No Impairment - Cognition Attention: Alert Orientation: Time Memory, Short Term: 2/3 Memory, Remote with Promptin/3 - Concentration Serial Sevens Intact: No Simple Calculations Intact: Yes - Abstraction Proverb Interpretation: Impaired Judgement: Minimally Impaired - Insight Insight: Intact - Impulse Control Impulse Control: Minimally Impaired - Suicidal Ideation Suicidal Ideation: No - Homicidal Ideation Homicidal Ideation: No Assessment/Plan 1) patient has mild encephalopathy probably secondary to increased Ammonia levels. 2) ) Patient has the mental capacity at thistime.
--- NOTE | 2018-07-20 19:11 | PN ---
Teaching Attending Note Name of Resident: Jonathan Enriquez ATTENDING PHYSICIAN STATEMENT I saw and evaluated the patient. I reviewed the resident's note and discussed the case with the resident. I agree with the resident's findings and plan as documented. SUBJECTIVE: No complaints. Pleasantly confused. No abdominal pain/nausea/ vomiting/diarrhea/ No fever/chills. OBJECTIVE: Afebrile, Hemodynamically Stable. Last Vital Signs Temp Pulse Resp BP Pulse Ox 98 F 75 20 150/91 98 07/20/18 17:11 07/20/18 17:11 07/20/18 17:11 07/20/18 17:11 07/20/18 04:59 HEENT - Atraumatic, Normocephalic. Heart - S1, S2, RRR Lungs - clear to auscultation. Abdomen - Soft, non-tender. Extremities - no calf tenderness. Mild asterixis R hand. Laboratory Results - last 24 hr 07/19/18 07/20/18 07/20/18 23:57 00:06 00:06 ESR Retic Count Sodium 141 Potassium 3.8 Chloride 110 H Carbon Dioxide 27 Anion Gap 4 L BUN 9 Creatinine 0.7 Creat Clearance w eGFR > 60 Random Glucose 79 Calcium 8.0 L Magnesium 1.4 L Total Bilirubin 1.6 H Direct Bilirubin 1.3 H GGT 190 H AST 131 H ALT 58 Alkaline Phosphatase 78 C-Reactive Protein Total Protein 6.8 Albumin 2.4 L Lipase 272 Vitamin B12 Serum Folate 69 H TSH 07/20/18 07/20/18 07/20/18 00:06 00:06 06:00 ESR 13 Retic Count Sodium Potassium Chloride Carbon Dioxide Anion Gap BUN Creatinine Creat Clearance w eGFR Random Glucose Calcium Magnesium Total Bilirubin Direct Bilirubin GGT AST ALT Alkaline Phosphatase C-Reactive Protein < 0.3 Total Protein Albumin Lipase Vitamin B12 1739 H Serum Folate TSH 3.94 H 07/20/18 06:00 ESR Retic Count 3.08 H Sodium Potassium Chloride Carbon Dioxide Anion Gap BUN Creatinine Creat Clearance w eGFR Random Glucose Calcium Magnesium Total Bilirubin Direct Bilirubin GGT AST ALT Alkaline Phosphatase C-Reactive Protein Total Protein Albumin Lipase Vitamin B12 Serum Folate TSH Current Medications Generic Name Dose Route Start Last Admin Trade Name Freq PRN Reason Stop Dose Admin Lactated Ringer's 1,000 ml in 1,000 mls @ 100 mls/hr 07/19/18 23:00 07/20/18 13:50 Lactated Ringers Solution IV 100 mls/hr ASDIR JESSICA Administration Lactulose 20 gm 07/20/18 09:44 07/20/18 17:31 Cephulac (Oral Use) PO 20 gm QID JESSICA Administration Thiamine HCl 200 mg 07/20/18 10:00 07/20/18 10:06 Vitamin B1 Injection - IM 200 mg DAILY JESSICA Administration ASSESSMENT AND PLAN: 49 year old male with history of polysubstance abuse (heroin on methadone, alcohol), Bipolar Disorder, Hepatitis C, GERD, Liver Cirrhosis, +PPD (treated), sent from [facility] with confusion/altered mental status after completing his detox regimen. 1. Acute Hepatic Encephalopathy secondary to likely Alcoholic Cirrhosis AAO x 2. Mild Asterixis. Ammonia level 50 CT Head - no acute intra-cranial findings. Reinstitute Lactulose regimen, may need to add Rifaximin. RPR non-reactive, B12 normal. TSH 3.97 2. Possible Liver Cirrhosis versus Alcoholic Hepatitis secondary to Alcohol excess +/- Hepatitis C DBil 1.3/AST 131 - improving No evidence of Ascites/SBP MVI, Thiamine, Folic Acid 3. Dilated CBD on Abdominal US - MRCP and further recommendations as per GI evaluation. Asymptomatic. No fever/chills/abdominal pain. DBil 1.3 4. Polysusbstance Abuse s/p Detox at Former heroin user - on Methadone - will give half dose today given lethargy and AMS History of Alcohol excess - no further evidence of alcohol withdrawal. 5. Possible UTI - received dose of Ceftriaxone empirically. Urine Cx pending. 6. Cerebrovascular Disease - Chronic Left Basilar Infarct on CT Head Once mental status more lucid, to consider secondary prevention with Aspirin/ Statin. Lipid panel requested. 7. Hypoalbuminemia/Thrombocytopenia/Leukopenia secondary to Alcohol excess/ Cirrhosis/Hep C - Stable. Afebrile. No bleeding/bruising. 8. Hypomagnesemia - repleted. DVT Px - SCDs. Heparin held due to Thrombocytopenia.
[2018-07-20] MEDS: FOLIC ACID 1 MG TABLET (FP) PO SCH (21:03)
[2018-07-21 04:13] LABS: SERUM IRON SATURATION 19 % (15-55); TOTAL IRON BINDING CAPACITY 288 ug/dL (250-450); UIBC 233 ug/dL (111-343)
[2018-07-21 08:25] LABS: BASO % 1.3 % (0-2.0); EOS % 3.1 % (0-4.5); HEMOGLOBIN 11.1 GM/dL (11.7-16.9); LYMPH % 50.9 % (8-40); MCH 30.2 pg (25.7-33.7); MCHC 32.7 g/dl (32.0-35.9); MEAN CELL VOLUME 92.4 fl (80-96); MEAN PLT VOLUME 11.9 fl (7.5-11.1); MONO % 19.3 % (3.8-10.2); NEUT % 25.4 % (42.8-82.8); PLATELET COUNT 52 K/MM3 (134-434); RBC 3.68 M/mm3 (4.00-5.60); RDW 14.5 % (11.9-15.9); WHITE BLOOD COUNT 3.2 K/mm3 (4.0-10.0)
[2018-07-21 08:32] LABS: INR 1.28 (0.83-1.09); PROTHROMBIN TIME (PATIENT) 15.2 SEC (9.7-13.0)
[2018-07-21 08:45] LABS: ALBUMIN 2.5 g/dl (3.4-5.0); ALK PHOS 84 U/L (45-117); ANION GAP 4 MMOL/L (8-16); BILIRUBIN,DIRECT 1.5 mg/dL (0.0-0.2); BILIRUBIN,TOTAL 2.2 mg/dL (0.2-1); BLOOD UREA NITROGEN 9 mg/dL (7-18); CALCIUM 8.3 mg/dL (8.5-10.1); CHLORIDE 107 mmol/L (98-107); CO2 26 mmol/L (21-32); CREATININE 0.7 mg/dL (0.55-1.3); GAMMA GLUTAMYL TRANSPEPTIDASE 195 U/L (5-85); GLUCOSE,RANDOM 78 mg/dL (74-106); MAGNESIUM 1.6 mg/dL (1.8-2.4); PHOSPHOROUS 3.1 mg/dL (2.5-4.9); POTASSIUM 4.2 mmol/L (3.5-5.1); SGOT/AST 129 U/L (15-37); SGPT/ALT 62 U/L (13-61); SODIUM 137 mmol/L (136-145); TOT PROT 7.2 g/dl (6.4-8.2)
[2018-07-21] MEDS ORDERED: LISINOPRIL 10 MG TABLET (FP) PO SCH (10:00)
[2018-07-21] MEDS: MULTIVITAMINS (DAILY MVI) TABLET (FP) PO SCH (10:12)
[2018-07-21] MEDS: FOLIC ACID 1 MG TABLET (FP) PO SCH (10:12)
[2018-07-21] MEDS: LACTULOSE 20 GM/30 ML UDC (FOR ORAL USE ONLY) PO SCH ×4 (10:12→22:02)
[2018-07-21] MEDS: LACTATED RINGERS SOLUTION 1,000 ML/1,000 ML INFUS.BAG IV SCH (10:12)
[2018-07-21] MEDS: THIAMINE HCL 200 MG/2 ML VIAL IM SCH (10:24)
[2018-07-21] MEDS: METHADONE HCL 10 MG TABLET PO SCH (10:27)
--- NOTE | 2018-07-21 12:08 | PN ---
Physical Exam: SUBJECTIVE: Patient seen and examined at bedside. Mental status improved although continues to have disorientation to time and poor recall. Does not understand reason for hospitalization or how he got here. No acute physical complaints. OBJECTIVE: Vital Signs Period Temp Pulse Resp BP Sys/Ledbetter Pulse Ox Last 24 Hr 98 F-98.9 F 67-90 18-20 142-180/86-99 GENERAL: oriented to self and place, firmly convinced the year is 191 or 191, appears undernourished HEENT: NC/AT, PERRLA, EOMI, MMM NECK: Trachea midline, full range of motion, supple. LUNGS: CTA b/l HEART: RRR no m/r/g ABDOMEN: +bs, soft, NT, ND EXTREMITIES: 2+ pulses, warm, well-perfused, no edema. NEUROLOGICAL: -no focal deficit of box coverer hand, motor, sensory systems -continuing trace asterixis -recalls 1/3 words after 5 minutes -abnormal clock drawing -normal sentence reading and writing -follows multi-step commands -good recall of remote life history -graphesthesia deficit: perceived letters as numbers, perceives numbers incorrectly -pronounced psychomotor retardation PSYCH: Normal mood, normal affect. SKIN: Warm, dry, normal turgor, no rashes or lesions noted Laboratory Results - last 24 hr 07/20/18 07/20/18 07/21/18 00:06 06:00 06:00 WBC 3.2 L RBC 3.68 L Hgb 11.1 L Hct 34.0 L MCV 92.4 MCH 30.2 MCHC 32.7 RDW 14.5 Plt Count 52 L D MPV 11.9 H Absolute Neuts (auto) 0.8 L Neutrophils % 25.4 L D Lymphocytes % 50.9 H D Monocytes % 19.3 H Eosinophils % 3.1 D Basophils % 1.3 Nucleated RBC % 0 PT with INR INR Sodium Potassium Chloride Carbon Dioxide Anion Gap BUN Creatinine Creat Clearance w eGFR Random Glucose Calcium Phosphorus Magnesium Iron 55 TIBC 288 Iron Saturation 19 Total Bilirubin Direct Bilirubin GGT AST ALT Alkaline Phosphatase Ammonia Total Protein Albumin HIV Genotype Non reactive 07/21/18 07/21/18 07/21/18 06:00 06:00 06:00 WBC RBC Hgb Hct MCV MCH MCHC RDW Plt Count MPV Absolute Neuts (auto) Neutrophils % Lymphocytes % Monocytes % Eosinophils % Basophils % Nucleated RBC % PT with INR 15.20 H INR 1.28 H Sodium 137 Potassium 4.2 Chloride 107 Carbon Dioxide 26 Anion Gap 4 L BUN 9 Creatinine 0.7 Creat Clearance w eGFR > 60 Random Glucose 78 Calcium 8.3 L Phosphorus 3.1 Magnesium 1.6 L Iron TIBC Iron Saturation Total Bilirubin 2.2 H Direct Bilirubin 1.5 H GGT 195 H AST 129 H ALT 62 H Alkaline Phosphatase 84 Ammonia 87.20 H Total Protein 7.2 Albumin 2.5 L HIV Genotype Active Medications Generic Name Dose Route Start Last Admin Trade Name Alex PRN Reason Stop Dose Admin Folic Acid 1 mg 07/20/18 19:30 07/21/18 10:12 Folic Acid - PO 1 mg DAILY JESSICA Administration Lactated Ringer's 1,000 ml in 1,000 mls @ 100 mls/hr 07/19/18 23:00 07/21/18 10:12 Lactated Ringers Solution IV 100 mls/hr ASDIR JESSICA Administration Lactulose 20 gm 07/20/18 09:44 07/21/18 10:12 Cephulac (Oral Use) PO 20 gm QID JESSICA Administration Lisinopril 10 mg 07/21/18 10:00 07/21/18 10:12 Prinivil PO 10 mg DAILY JESSICA Administration Methadone HCl 30 mg 07/21/18 10:15 07/21/18 10:27 Dolophine - PO 30 mg 0600 JESSICA Administration Multivitamins/Minerals/Vitamin C 1 tab 07/21/18 10:00 07/21/18 10:12 Tab-A-Vit - PO 1 tab DAILY JESSICA Administration Thiamine HCl 200 mg 07/20/18 10:00 07/21/18 10:24 Vitamin B1 Injection - IM 200 mg DAILY JESSICA Administration ASSESSMENT/PLAN: 7 y/o M w/ PMHx of HTN, EtOH abuse, Bipolar Disorder, Hep C, GERD, Hx. of positive PPD(treated) presents from [facility] for AMS 2/2 elevated ammonia levels. #Hepatic Encephalopathy -NH3 uptrending, 50->87 -c/w lactulose, adding rifaximin -GI consulted -c/w IVF -Head CT Negative -Abd US shows CBD dilatation to 1 cm, pancreatic duct dilatation, trace free fluid and hepatic cirrhosis -mild LFT derangement in alcoholic hepatitis pattern -direct and total hyperbilirubinemia -elevated GGT and uptrending -pending MRCP #?Korsakoff syndrome vs other neurocognitive decline -anterograde amnesia -apraxia -executive function deficits -no longer globally encephalopathic -neurology consulted #mildly positive UA -Pt. is altered so unable to obtain accurate hx. -Given 2gm Ceftriaxone- Pt. unreliable historian -await C/S for further therapy #Pancytopenia likely 2/2 EtOH abuse -f/u Fe, Ferritin and TIBC -f/u reticulocyte count #Hypoalbuminemia likely 2/2 EtOH abuse -consider nutrition consult -consider supplemental protein in nutrition #FEN -c/w LR @ 100 -monitor electrolytes, replete as needed -Na-controlled diet #PPx -DVT: Mechanical Ppx only given Platelets of 83 and decreased liver function -GI: not indicated #code -full #Dispo -cont to monitor on med/surg Visit type - Emergency Visit Emergency Visit: No - New Patient This patient is new to me today: No - Critical Care Critical Care patient: No
[2018-07-21] MEDS ORDERED: RIFAXIMIN 200 MG TABLET PO SCH (14:00)
[2018-07-21] MEDS ORDERED: PT OWN MED DRAWER 7, Y5N ONE (14:33)
--- NOTE | 2018-07-21 17:04 | CON.NEURO ---
Consult - Alcohol/Substance Use Hx Alcohol Use: Yes - Smoking History Smoking history: Current every day smoker Have you smoked in the past 12 months: Yes Aproximately how many cigarettes per day: 5 - Social History Usual Living Arrangement: Alone Home Medications - Allergies Allergies/Adverse Reactions: Allergies Allergy/AdvReac Type Severity Reaction Status Date / Time No Known Allergies Allergy Verified 07/19/18 15:43 - Home Medications Home Medications: Ambulatory Orders Methadone [Dolophine -] 40 mg PO DAILY@0600 #0 tablet MDD 40 09/20/17 Lisinopril [Zestril] 10 mg PO DAILY 07/16/18 clonazePAM [Klonopin -] 0.5 mg PO HS 07/16/18 Risperidone 1 mg PO DAILY 07/20/18 Family Disease History - Family Disease History Family Disease History: Other: Father (ETOH DEPENDENT AND ), Mother (ETOH DEPENDENT AND ), Brother (four - living), Sister (one - living - HIV), Son ( two), Daughter (four) Physical Exam-Neuro Vital Signs: Vital Signs Temperature 98.2 F 07/21/18 10:00 Pulse Rate 75 07/21/18 10:00 Respiratory Rate 20 07/21/18 10:00 Blood Pressure 145/88 07/21/18 10:00 O2 Sat by Pulse Oximetry (%) 98 07/20/18 04:59 Labs: CBC, BMP 07/21/18 06:00 07/21/18 06:00 INR, PTT INR 1.28 (0.83-1.09) H 07/21/18 06:00 Assessment/Plan CC acute confusional state HPI 57 year old male history of alcohol abuse, high NH3 level. Patient was brought from [place] for mental status change. His ct head is noraml. His NH3 is in 80s. Patient is getting lactulose. Spoke to nursing staff and chart reviewed and patient examined. Patient has no new focal neuro syptoms, no fever or headahce, no seizure like activity. His mental status is improving. He is on folic acid and thiamine. PMH HTN, ETOH abuse, Bipolar, Hepc , Social History: Smoking: Unable to obtain-Per Chart review 1 pack/day Alcohol: Unable to obtain Drugs: Unable to obtain Family History: Unable to obtain NKDA HOME MEDICATIONS: Home Medications Medication Instructions Recorded Enalapril Maleate [Vasotec -] 10 mg PO DAILY #30 tablet 09/17/17 Methadone [Dolophine -] 40 mg PO DAILY@0600 #0 tablet MDD 09/20/17 40 Lisinopril [Zestril] 20 mg PO DAILY 07/16/18 clonazePAM [Klonopin -] 0.5 mg PO HS 07/16/18 ROS reviewed in chart Neurological Exmaination Alert oriented x 2, he knows he is at [facility] and his name, he do not know what date is this speech is normal eomi, pupils reactive n face assymmetry motor 5/5 all ext sensation is normal reflex are generalized diminished ct head is normal Assessment/Plan 57 year old male history of benzo withdrawal, alcohol abuse in past . Suspect metabolic encephalopathy ( benzo withdrawal, and High NH3) Exam is non focal except mild disorientation. Plan continue folic acid thiamine, - refrain from NH3 - Continue Lactulose and care as per GI Thanking you so much Almas Hays MD
--- NOTE | 2018-07-21 18:16 | PN ---
Teaching Attending Note Name of Resident: Jonathan Enriquez ATTENDING PHYSICIAN STATEMENT I saw and evaluated the patient. I reviewed the resident's note and discussed the case with the resident. I agree with the resident's findings and plan as documented. SUBJECTIVE: No complaints. Pleasantly confused. No abdominal pain/nausea/ vomiting/diarrhea. No headache/fever/chills. OBJECTIVE: Afebrile, Hemodynamically Stable. AAO x 2. Last Vital Signs Temp Pulse Resp BP Pulse Ox 98.2 F 75 20 145/88 98 07/21/18 10:00 07/21/18 10:00 07/21/18 10:00 07/21/18 10:00 07/20/18 04:59 HEENT - Atraumatic, Normocephalic. Heart - S1, S2, RRR Lungs - clear to auscultation. Abdomen - Soft, non-tender. Extremities - no calf tenderness. Laboratory Results - last 24 hr 07/20/18 07/20/18 07/21/18 00:06 06:00 06:00 WBC 3.2 L RBC 3.68 L Hgb 11.1 L Hct 34.0 L MCV 92.4 MCH 30.2 MCHC 32.7 RDW 14.5 Plt Count 52 L D MPV 11.9 H Absolute Neuts (auto) 0.8 L Neutrophils % 25.4 L D Lymphocytes % 50.9 H D Monocytes % 19.3 H Eosinophils % 3.1 D Basophils % 1.3 Nucleated RBC % 0 PT with INR INR Sodium Potassium Chloride Carbon Dioxide Anion Gap BUN Creatinine Creat Clearance w eGFR Random Glucose Calcium Phosphorus Magnesium Iron 55 TIBC 288 Iron Saturation 19 Total Bilirubin Direct Bilirubin GGT AST ALT Alkaline Phosphatase Ammonia Total Protein Albumin HIV Genotype Non reactive 07/21/18 07/21/18 07/21/18 06:00 06:00 06:00 WBC RBC Hgb Hct MCV MCH MCHC RDW Plt Count MPV Absolute Neuts (auto) Neutrophils % Lymphocytes % Monocytes % Eosinophils % Basophils % Nucleated RBC % PT with INR 15.20 H INR 1.28 H Sodium 137 Potassium 4.2 Chloride 107 Carbon Dioxide 26 Anion Gap 4 L BUN 9 Creatinine 0.7 Creat Clearance w eGFR > 60 Random Glucose 78 Calcium 8.3 L Phosphorus 3.1 Magnesium 1.6 L Iron TIBC Iron Saturation Total Bilirubin 2.2 H Direct Bilirubin 1.5 H GGT 195 H AST 129 H ALT 62 H Alkaline Phosphatase 84 Ammonia 87.20 H Total Protein 7.2 Albumin 2.5 L HIV Genotype Current Medications Generic Name Dose Route Start Last Admin Trade Name Alex PRN Reason Stop Dose Admin Folic Acid 1 mg 07/20/18 19:30 07/21/18 10:12 Folic Acid - PO 1 mg DAILY JESSICA Administration Lactated Ringer's 1,000 ml in 1,000 mls @ 100 mls/hr 07/19/18 23:00 07/21/18 10:12 Lactated Ringers Solution IV 100 mls/hr ASDIR JESSICA Administration Lactulose 20 gm 07/20/18 09:44 07/21/18 18:06 Cephulac (Oral Use) PO 20 gm QID JESSICA Administration Lisinopril 10 mg 07/21/18 10:00 07/21/18 10:12 Prinivil PO 10 mg DAILY JESSICA Administration Methadone HCl 30 mg 07/21/18 10:15 07/21/18 10:27 Dolophine - PO 30 mg 0600 JESSICA Administration Multivitamins/Minerals/Vitamin C 1 tab 07/21/18 10:00 07/21/18 10:12 Tab-A-Vit - PO 1 tab DAILY JESSICA Administration Rifaximin 550 mg 07/21/18 22:00 Xifaxan - PO BID JESSICA Thiamine HCl 200 mg 07/20/18 10:00 07/21/18 10:24 Vitamin B1 Injection - IM 200 mg DAILY JESSICA Administration ASSESSMENT AND PLAN: 49 year old male with history of polysubstance abuse (heroin on methadone, alcohol), Bipolar Disorder, Hepatitis C, GERD, Liver Cirrhosis, +PPD (treated), sent from [facility] with confusion/altered mental status after completing his detox regimen. 1. Acute Hepatic Encephalopathy secondary to Alcoholic Liver Cirrhosis atop likely baseline Cognitive Dysfunction ?Dementia vs Korsakoff Syndrome AAO x 2. Mild Asterixis. Ammonia level increased from [address] Head - no acute intra-cranial findings. Continue Lactulose. Add Rifaximin RPR non-reactive, B12 normal. TSH 3.97 Thiamine supplementation 2. Liver Cirrhosis secondary to Alcohol excess +/- Hepatitis C TBil 2.2/AST 139/ALT62 No evidence of SBP Continue MVI, Thiamine, Folic Acid 3. Dilated CBD on Abdominal US - MRCP confirms Cirrhosis with paraesophageal and kyle-gastric varices with focal dilatation of pancreatic duct i head and body, s/p Cholecystectomy, CBD 1cm with no obvious filling defect. Further recommendations as per GI evaluation. Asymptomatic. No fever/chills/abdominal pain. 4. Polysusbstance Abuse s/p Detox at Former heroin user - continue on Methadone (dose reduced to 30mg) History of Alcohol excess - no further evidence of alcohol withdrawal. 5. UTI excluded - received 1 dose of Ceftriaxone - Urine Cx negative 6. Cerebrovascular Disease - Chronic Left Basilar Infarct on CT Head Will hold Aspirin/Statin given extensive varices on MRI and elevated LFTs. Lipid panel requested. 7. Hypoalbuminemia/Thrombocytopenia/Leukopenia secondary to Alcohol excess/ Cirrhosis/Hep C - Stable. Afebrile. No bleeding/bruising. 8. Hypomagnesemia - repleted. 9. HTN - Continue Lisinopril DVT Px - SCDs. Heparin held due to Thrombocytopenia.
--- NOTE | 2018-07-21 20:57 | PN ---
GI Progress Note Subjective: Patient believes that he is is [place] Denies abdominal pain BP Markedly elevated this evening - Objective Vital Signs: Vital Signs Temperature 98.1 F 07/21/18 18:00 Pulse Rate 66 07/21/18 18:00 Respiratory Rate 20 07/21/18 18:00 Blood Pressure 180/101 H 07/21/18 18:00 O2 Sat by Pulse Oximetry (%) 98 07/20/18 04:59 Constitutional: Calm Eyes: No: Sclera Icterus Cardiovascular: Yes: Regular Rate and Rhythm Respiratory: Yes: CTA Bilaterally Gastrointestinal Inspection: No: Distention ...Auscultate: Yes: Normoactive Bowel Sounds ...Palpate: No: Hepatomegaly, Splenomegaly, Tenderness ...Percussion: No: Tympanitic Edema: No (No LE edema) Neurological: Yes: Alert, Oriented (x person only). No: Asterixis Labs: CBC, BMP 07/21/18 06:00 07/21/18 06:00 INR, PTT INR 1.28 (0.83-1.09) H 07/21/18 06:00 Laboratory Tests 07/21/18 06:00 Ammonia 87.20 H - ....Imaging MRI: Report Reviewed (paraesophageal and perigastric varices, 1cm CBD dilation without obvious filling defect. Normal spleen, focal dilation of pancreatic duct at the head and body.) Problem List - Problems (1) Abnormal liver function tests Assessment/Plan: The pattern or Mr. Manuel' LFT abnormalty seems to be chronic in nature when looking back in the [facility] system I'm not sure why HCV quantitation was ordered as the first screening test for Hep C but this will need to be followwed up He should also have screening hepatitis A/B serologies drawn (Hepatitis A/B panel) Will need q 6 month abd US and AFP tumopr marker to screen for HCC Advised the patient that he needs to completely abstain from alcohol Will need further imaging of biliary tract and pancreas. EUS would be appropriate as he can be surveilled for varices as well as exclude pancreatic / ampullary lesions. He lives in [place], meaning that he will need to have medical care arranged there. It is not sure if he has a PMD in [place]. If he does, it should be communicated to the PMD that Mr. Manuel will need GI follow-up as an outpatient and will need EUS arranged. I tried explaining this to Mr. Manuel this evening, however he still seems confused (thinks we are in [place] and that it is August in the year 20something). Continue lactulose, rifaximin. Titrate lactulose to achieve 4-5 loose BMs per day. Meaning that you will have to titrate the lactulose accordingly. Evaluate for alternate causes of confusion as well Code(s): R94.5 - ABNORMAL RESULTS OF LIVER FUNCTION STUDIES
[2018-07-21] MEDS: RIFAXIMIN 550 MG TABLET (UD) PO SCH (22:02)
[2018-07-21] MEDS ORDERED: LISINOPRIL 10 MG TABLET (FP) PO ONE (22:15)
[2018-07-21] MEDS: metoPROLOL SUCCINATE 25 MG TAB.SR.24H (FP) PO SCH (23:18)
--- NOTE | 2018-07-22 01:14 | PN ---
Progress Note (short form) - Note Progress Note: Paged for Pt.s BP 180/101, HR 66. Gave Pt. next dose of Lisinopril 10mg, rechecked BP 30 min later Pt.s BP 175/105, HR 135. Gave Pt. Metoprolol 25mg, rechecked BP: 176/95, HR 65. Discussed case with Dr. Mao, agreed to adjust Lisinopril to 20mg BID and start Clonidine 0.2mg TID as Pt.'s BP is recalcitrant to previous medications Rechecked BP 162/95 HR 64. Decision was made to recheck BP in 30 min. On recheck Pt.'s BP is 146/94 HR 58. Pt. assessed through entire course and denies any new symptoms. Pt. improved in orientation and is now A&Ox 2.
[2018-07-22] MEDS: cloNIDine HCL 0.1 MG TABLET PO SCH ×2 (01:15→05:35)
[2018-07-22] MEDS: METHADONE HCL 10 MG TABLET PO SCH (05:34)
[2018-07-22 06:06] LABS: CHLORDIAZEPOXIDE (LIBRIUM) 0.4 ug/mL (.)
[2018-07-22 07:36] LABS: BASO % 1.3 % (0-2.0); EOS % 2.5 % (0-4.5); HEMOGLOBIN 11.4 GM/dL (11.7-16.9); LYMPH % 45.1 % (8-40); MCH 30.9 pg (25.7-33.7); MCHC 33.4 g/dl (32.0-35.9); MEAN CELL VOLUME 92.4 fl (80-96); MEAN PLT VOLUME 11.6 fl (7.5-11.1); MONO % 21.6 % (3.8-10.2); NEUT % 29.5 % (42.8-82.8); PLATELET COUNT 54 K/MM3 (134-434); RBC 3.68 M/mm3 (4.00-5.60); RDW 14.4 % (11.9-15.9); WHITE BLOOD COUNT 3.2 K/mm3 (4.0-10.0)
[2018-07-22 08:00] LABS: ALBUMIN 2.4 g/dl (3.4-5.0); ALK PHOS 80 U/L (45-117); ANION GAP 6 MMOL/L (8-16); BILIRUBIN,DIRECT 1.5 mg/dL (0.0-0.2); BILIRUBIN,TOTAL 2.1 mg/dL (0.2-1); BLOOD UREA NITROGEN 7 mg/dL (7-18); CHLORIDE 106 mmol/L (98-107); CO2 24 mmol/L (21-32); CREATININE 0.8 mg/dL (0.55-1.3); GAMMA GLUTAMYL TRANSPEPTIDASE 187 U/L (5-85); GLUCOSE,RANDOM 77 mg/dL (74-106); POTASSIUM 3.9 mmol/L (3.5-5.1); SGOT/AST 131 U/L (15-37); SGPT/ALT 59 U/L (13-61); SODIUM 136 mmol/L (136-145)
[2018-07-22] MEDS ORDERED: MAGNESIUM SULF 50% (8.12 MEQ/2 ML-1 GM VIAL) IVPB ONE ×2 (08:35→09:00)
[2018-07-22] MEDS: metoPROLOL SUCCINATE 25 MG TAB.SR.24H (FP) PO SCH (09:22)
--- NOTE | 2018-07-22 09:22 | PN ---
Progress Note (short form) - Note Progress Note: H57 year old male history of alcohol abuse, high NH3 level. Patient was brought from [place] for mental status change. His ct head is noraml. His NH3 is in 80s. Patient is getting lactulose. Spoke to nursing staff and chart reviewed and patient examined. Patient has no new focal neuro syptoms, no fever or headahce, no seizure like activity. His mental status is improving. He is on folic acid and thiamine. Patient has history of HTN, ETOH abuse, Bipolar, Hepc , Neurological Exmaination Alert oriented x 2, he remains confused, he knows his name, age and [facility]. He did say this is july [id number] and later he corrected speech is normal eomi, pupils reactive n face assymmetry motor 5/5 all ext sensation is normal reflex are generalized diminished ct head is normal Assessment/Plan 57 year old male history of benzo withdrawal, alcohol abuse in past . Suspect metabolic encephalopathy ( benzo withdrawal, and High NH3) Exam is non focal except disorientation. Clinically no evidence of status or meningitis Plan continue folic acid thiamine, -Refrain from alcohol - Continue Lactulose and care as per GI Thanking you so much Almas Hays MD
[2018-07-22] MEDS ORDERED: PT OWN MED DRAWER 7, Y5N ONE (09:27)
[2018-07-22] MEDS: MULTIVITAMINS (DAILY MVI) TABLET (FP) PO SCH (09:29)
[2018-07-22] MEDS: FOLIC ACID 1 MG TABLET (FP) PO SCH (09:29)
[2018-07-22] MEDS: RIFAXIMIN 550 MG TABLET (UD) PO SCH (09:29)
[2018-07-22] MEDS: LACTULOSE 20 GM/30 ML UDC (FOR ORAL USE ONLY) PO SCH ×2 (09:29→14:32)
[2018-07-22 09:41] LABS: ANISOCYTOSIS 1+; MACROCYTOSIS 0; OVALOCYTE 1+; PLATELET ESTIMATE DECREASED; TARGET CELLS 2+
[2018-07-22] MEDS: THIAMINE HCL 200 MG/2 ML VIAL IM SCH (09:48)
[2018-07-22] MEDS ORDERED: LISINOPRIL 20 MG TABLET (FP) PO SCH ×2 (10:00)
[2018-07-22] MEDS ORDERED: THIAMINE HCL 100 MG TABLET (FP) PO SCH (10:00)
[2018-07-22 10:14] LABS: CHOLESTEROL 132 mg/dL (50-200); HDL CHOLESTEROL 56 mg/dL (40-60); TRIGLYCERIDES 52 mg/dL (0-150)
--- NOTE | 2018-07-22 13:03 | PN ---
Physical Exam: SUBJECTIVE: Patient seen and examined at bedside. Mental status continues improving, thoughts are clearer. No acute physical complaints. OBJECTIVE: Vital Signs Period Temp Pulse Resp BP Sys/Ledbetter Pulse Ox Last 24 Hr 97.9 F-98.1 F 58-135 18-20 144-180/94-103 GENERAL: oriented to self and place, states year is 2013 and corrects to 2019 with prompting HEENT: NC/AT, PERRLA, EOMI, MMM NECK: Trachea midline, full range of motion, supple. LUNGS: CTA b/l HEART: RRR no m/r/g ABDOMEN: +bs, soft, NT, ND EXTREMITIES: 2+ pulses, warm, well-perfused, no edema. NEUROLOGICAL: no focal deficit of rn digestive, motor, sensory systems, +psychomotor retardation PSYCH: Normal mood, normal affect. SKIN: Warm, dry, normal turgor, no rashes or lesions noted Laboratory Results - last 24 hr 07/20/18 07/22/18 07/22/18 00:06 06:00 07:00 WBC 3.2 L RBC 3.68 L Hgb 11.4 L Hct 34.0 L MCV 92.4 MCH 30.9 MCHC 33.4 RDW 14.4 Plt Count 54 L MPV 11.6 H Absolute Neuts (auto) 0.9 L Neutrophils % 29.5 L Neutrophils % (Manual) 36.0 L D Band Neutrophils % 0.0 Lymphocytes % 45.1 H Lymphocytes % (Manual) 43.0 H D Monocytes % 21.6 H Monocytes % (Manual) 18 H Eosinophils % 2.5 Eosinophils % (Manual) 3.0 Basophils % 1.3 Basophils % (Manual) 0.0 Myelocytes % (Man) 0 Promyelocytes % (Man) 0 Blast Cells % (Manual) 0 Nucleated RBC % 0 Metamyelocytes 0 Hypochromia 1+ Platelet Estimate Decreased Platelet Comment Present Polychromasia 0 Poikilocytosis 1+ Anisocytosis 1+ Microcytosis 1+ Macrocytosis 0 Spherocytes 1+ Target Cells 2+ Ovalocytes 1+ [place] Cells 1+ Acanthocytes (Spur) 1+ Fragmented RBCs 1+ Sodium 136 Potassium 3.9 Chloride 106 Carbon Dioxide 24 Anion Gap 6 L BUN 7 Creatinine 0.8 Creat Clearance w eGFR 99.29 Random Glucose 77 Calcium 8.0 L Phosphorus 3.0 Magnesium 1.0 L Total Bilirubin 2.1 H Direct Bilirubin 1.5 H GGT 187 H AST 131 H ALT 59 Alkaline Phosphatase 80 Ammonia Total Protein 7.0 Albumin 2.4 L Triglycerides 52 Cholesterol 132 Total LDL Cholesterol 65 HDL Cholesterol 56 Chlordiazepoxide 0.4 Norchlordiazepoxide 0.2 Nordiazepam None detected 07/22/18 07:00 WBC RBC Hgb Hct MCV MCH MCHC RDW Plt Count MPV Absolute Neuts (auto) Neutrophils % Neutrophils % (Manual) Band Neutrophils % Lymphocytes % Lymphocytes % (Manual) Monocytes % Monocytes % (Manual) Eosinophils % Eosinophils % (Manual) Basophils % Basophils % (Manual) Myelocytes % (Man) Promyelocytes % (Man) Blast Cells % (Manual) Nucleated RBC % Metamyelocytes Hypochromia Platelet Estimate Platelet Comment Polychromasia Poikilocytosis Anisocytosis Microcytosis Macrocytosis Spherocytes Target Cells Ovalocytes [place] Cells Acanthocytes (Spur) Fragmented RBCs Sodium Potassium Chloride Carbon Dioxide Anion Gap BUN Creatinine Creat Clearance w eGFR Random Glucose Calcium Phosphorus Magnesium Total Bilirubin Direct Bilirubin GGT AST ALT Alkaline Phosphatase Ammonia 63.90 H Total Protein Albumin Triglycerides Cholesterol Total LDL Cholesterol HDL Cholesterol Chlordiazepoxide Norchlordiazepoxide Nordiazepam Active Medications Generic Name Dose Route Start Last Admin Trade Name Freq PRN Reason Stop Dose Admin Folic Acid 1 mg 07/20/18 19:30 07/22/18 09:29 Folic Acid - PO 1 mg DAILY JESSICA Administration Lactated Ringer's 1,000 ml in 1,000 mls @ 100 mls/hr 07/19/18 23:00 07/21/18 10:12 Lactated Ringers Solution IV 100 mls/hr ASDIR JESSICA Administration Lactulose 20 gm 07/20/18 09:44 07/22/18 09:29 Cephulac (Oral Use) PO 20 gm QID JESSICA Administration Lisinopril 20 mg 07/22/18 10:00 07/22/18 09:49 Prinivil PO Not Given DAILY JESSICA Methadone HCl 30 mg 07/21/18 10:15 07/22/18 05:34 Dolophine - PO 30 mg 0600 JESSICA Administration Metoprolol Succinate 25 mg 07/21/18 23:15 07/22/18 09:22 Toprol Xl - PO Not Given DAILY JESSICA Multivitamins/Minerals/Vitamin C 1 tab 07/21/18 10:00 07/22/18 09:29 Tab-A-Vit - PO 1 tab DAILY JESSICA Administration Rifaximin 550 mg 07/21/18 22:00 07/22/18 09:29 Xifaxan - PO 550 mg BID JESSICA Administration Thiamine HCl 100 mg 07/22/18 10:00 07/22/18 09:49 Vitamin B1 - PO Not Given DAILY JESSICA ASSESSMENT/PLAN: 57 y/o M w/ PMHx of HTN, EtOH abuse, Bipolar Disorder, Hep C, GERD, Hx. of positive PPD(treated) presents from [facility] for AMS 2/2 hepatic encephalopathy #Hepatic Encephalopathy -NH3 downtrending -c/w lactulose, adding rifaximin -GI consulted -c/w IVF -Head CT Negative -Abd US shows CBD dilatation to 1 cm, pancreatic duct dilatation, trace free fluid and hepatic cirrhosis -MRCP: cirrhosis, extensive varices, ductal dilatation of unclear etiology, s/p CCY -mild LFT derangement in alcoholic hepatitis pattern, direct and total hyperbilirubinemia, elevated GGT #?Korsakoff syndrome vs other neurocognitive decline -anterograde amnesia -apraxia -executive function deficits -no longer globally encephalopathic -neurology consulted, no intervention at this time #FEN -c/w LR @ 100 -monitor electrolytes, replete as needed -Na-controlled diet #PPx -DVT: Mechanical Ppx only given Platelets of 83 and decreased liver function -GI: not indicated #code -full #Dispo -cont to monitor on med/surg Visit type - Emergency Visit Emergency Visit: No - New Patient This patient is new to me today: No - Critical Care Critical Care patient: No
[2018-07-22 14:19] VITALS: BP 144/82; PULSE 53; TEMP 98.1
--- NOTE | 2018-07-22 14:43 | PN ---
[facility] Progress Note (SOAP) Subjective: 57 y.o. male referred for consultation for etoh dependence , transferred from [facility] due to AMS / elevated ammonia level 07/19/18 , currently medically stable for d/c . Pt denies symptoms, reports feeling " fine " denies nausea/ vomiting/ diarrhea / tremors . Detox taper at [facility] with Lorazepam , latest given 07/18/18 , further doses held d/t increased confusion. Methadone held 07/19-07/20 , restarted 07/21/18 at lower dose of 30 mg q d . PMHX : Hep C , htn , withdrawal seizure . + PPD s/p tx, left hand frx , GERD , tobacco dependence . Active Medications Folic Acid (Folic Acid -) 1 mg PO DAILY [facility] Last Admin: 07/22/18 09:29 Dose: 1 mg Lactated Ringer's (Lactated Ringers Solution) 1,000 ml in 1,000 mls @ 100 mls/ hr IV ASDIR [facility] Last Admin: 07/21/18 10:12 Dose: 100 mls/hr Lactulose (Cephulac (Oral Use)) 20 gm PO QID [facility] Last Admin: 07/22/18 14:32 Dose: 20 gm Lisinopril (Prinivil) 20 mg PO DAILY [facility] Last Admin: 07/22/18 09:49 Dose: Not Given Methadone HCl (Dolophine -) 30 mg PO 0600 [facility] Last Admin: 07/22/18 05:34 Dose: 30 mg Metoprolol Succinate (Toprol Xl -) 25 mg PO DAILY [facility] Last Admin: 07/22/18 09:22 Dose: Not Given Multivitamins/Minerals/Vitamin C (Tab-A-Vit -) 1 tab PO DAILY [facility] Last Admin: 07/22/18 09:29 Dose: 1 tab Rifaximin (Xifaxan -) 550 mg PO BID [facility] Last Admin: 07/22/18 09:29 Dose: 550 mg Thiamine HCl (Vitamin B1 -) 100 mg PO DAILY [facility] Last Admin: 07/22/18 09:49 Dose: Not Given Objective: wnwd , nad heent : NCAT EOMI mucosae moist resp : no distress noted Neuro : AAO x 3 , no tremors . 07/22/18 14:41 CBC, BMP 07/22/18 07:00 07/22/18 06:00 Abnormal Lab Results 07/22/18 07/22/18 07/22/18 06:00 07:00 07:00 WBC 3.2 L RBC 3.68 L Hgb 11.4 L Hct 34.0 L Plt Count 54 L MPV 11.6 H Absolute Neuts (auto) 0.9 L Neutrophils % 29.5 L Neutrophils % (Manual) 36.0 L D Lymphocytes % 45.1 H Lymphocytes % (Manual) 43.0 H D Monocytes % 21.6 H Monocytes % (Manual) 18 H Anion Gap 6 L Calcium 8.0 L Magnesium 1.0 L Total Bilirubin 2.1 H Direct Bilirubin 1.5 H GGT 187 H AST 131 H Ammonia 63.90 H Albumin 2.4 L Vital Signs - 24 hr 07/21/18 07/21/18 07/21/18 17:29 18:00 23:00 Temperature 97.9 F 98.1 F Pulse Rate 72 66 135 H Respiratory 18 20 20 Rate Blood Pressure 144/98 180/101 H 175/95 H 07/22/18 07/22/18 07/22/18 00:41 01:50 02:43 Temperature Pulse Rate 68 64 58 L Respiratory 20 18 20 Rate Blood Pressure 176/103 H 162/95 146/94 07/22/18 07/22/18 07:19 14:18 Temperature 97.9 F 98.1 F Pulse Rate 61 53 L Respiratory 20 20 Rate Blood Pressure 146/98 144/82 Assessment: Alcohol dependence Plan: pt interested in inpatient rehab , pending bed availability .
--- NOTE | 2018-07-22 15:01 | DS ---
Physical Exam: SUBJECTIVE: Patient seen and examined at bedside. Mental status continues improving, thoughts are clearer. No acute physical complaints. OBJECTIVE: Vital Signs Period Temp Pulse Resp BP Sys/Ledbetter Pulse Ox Last 24 Hr 97.9 F-98.1 F 53-135 18-20 144-180/82-103 PHYSICAL EXAM GENERAL: oriented to self and place, states year is 2013 and corrects to 2019 with prompting HEENT: NC/AT, PERRLA, EOMI, MMM NECK: Trachea midline, full range of motion, supple. LUNGS: CTA b/l HEART: RRR no m/r/g ABDOMEN: +bs, soft, NT, ND EXTREMITIES: 2+ pulses, warm, well-perfused, no edema. 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 SKIN: Warm, dry, normal turgor, no rashes or lesions noted LABS Laboratory Results - last 24 hr 07/20/18 07/20/18 07/22/18 00:06 00:06 06:00 WBC RBC Hgb Hct MCV MCH MCHC RDW Plt Count MPV Absolute Neuts (auto) Neutrophils % Neutrophils % (Manual) Band Neutrophils % Lymphocytes % Lymphocytes % (Manual) Monocytes % Monocytes % (Manual) Eosinophils % Eosinophils % (Manual) Basophils % Basophils % (Manual) Myelocytes % (Man) Promyelocytes % (Man) Blast Cells % (Manual) Nucleated RBC % Metamyelocytes Hypochromia Platelet Estimate Platelet Comment Polychromasia Poikilocytosis Anisocytosis Microcytosis Macrocytosis Spherocytes Target Cells Ovalocytes [place] Cells Acanthocytes (Spur) Fragmented RBCs Sodium 136 Potassium 3.9 Chloride 106 Carbon Dioxide 24 Anion Gap 6 L BUN 7 Creatinine 0.8 Creat Clearance w eGFR 99.29 Random Glucose 77 Calcium 8.0 L Phosphorus 3.0 Magnesium 1.0 L Total Bilirubin 2.1 H Direct Bilirubin 1.5 H GGT 187 H AST 131 H ALT 59 Alkaline Phosphatase 80 Ammonia Total Protein 7.0 Albumin 2.4 L Triglycerides 52 Cholesterol 132 Total LDL Cholesterol 65 HDL Cholesterol 56 Chlordiazepoxide 0.4 Norchlordiazepoxide 0.2 Nordiazepam None detected HCV Quantitation [id number] HCV RNA log copies/mL 5.493 07/22/18 07/22/18 07/22/18 07:00 07:00 13:00 WBC 3.2 L RBC 3.68 L Hgb 11.4 L Hct 34.0 L MCV 92.4 MCH 30.9 MCHC 33.4 RDW 14.4 Plt Count 54 L MPV 11.6 H Absolute Neuts (auto) 0.9 L Neutrophils % 29.5 L Neutrophils % (Manual) 36.0 L D Band Neutrophils % 0.0 Lymphocytes % 45.1 H Lymphocytes % (Manual) 43.0 H D Monocytes % 21.6 H Monocytes % (Manual) 18 H Eosinophils % 2.5 Eosinophils % (Manual) 3.0 Basophils % 1.3 Basophils % (Manual) 0.0 Myelocytes % (Man) 0 Promyelocytes % (Man) 0 Blast Cells % (Manual) 0 Nucleated RBC % 0 Metamyelocytes 0 Hypochromia 1+ Platelet Estimate Decreased Platelet Comment Present Polychromasia 0 Poikilocytosis 1+ Anisocytosis 1+ Microcytosis 1+ Macrocytosis 0 Spherocytes 1+ Target Cells 2+ Ovalocytes 1+ [place] Cells 1+ Acanthocytes (Spur) 1+ Fragmented RBCs 1+ Sodium Potassium Chloride Carbon Dioxide Anion Gap BUN Creatinine Creat Clearance w eGFR Random Glucose Calcium Phosphorus Magnesium 2.3 Total Bilirubin Direct Bilirubin GGT AST ALT Alkaline Phosphatase Ammonia 63.90 H Total Protein Albumin Triglycerides Cholesterol Total LDL Cholesterol HDL Cholesterol Chlordiazepoxide Norchlordiazepoxide Nordiazepam HCV Quantitation HCV RNA log copies/mL HOSPITAL COURSE: Date of Admission:07/19/18 Patient is a 57 y/o M living in a men's group home w/ PMHx of HTN, EtOH abuse, Bipolar Disorder, Hep C, GERD, Hx. of positive PPD(treated) presents from [facility] for AMS 2/2 hepatic encephalopathy. Found to have disorderd hepatobiliary panels with bilirubinemia and GGT elevation in addition to transaminitis and hyperammonemia. Additionally there was concern for chronic neurocognitive disorder such as Korsakoff syndrome. GI, psychiatry, neurology, and addiction medicine were consulted. HCT showed chronic basal ganglia infarct without acute pathology. Abd US found CBD and pancreatic duct dilatation. MRCP showed cirrhosis, extensive varices, pancreatic duct and CBD dilatation of unclear etiology s/p CCY, trace ascites. Patient was treated with lactulose and rifaximin in addition to home medications and mental status improved although underlying neurocognitive deficits remained. Neurology and psychiatry did not recommend further intervention. Patient was discharged on prior home medications , lactulose, and rifaximin, additionally started on lisinopril and metroprolol succinate with referrals for outpatient follow up with primary medical care and gastroenterology. He was counseled on medication adherence and EtOH abstinence. Date of Discharge: 07/22/18 Minutes to complete discharge: 40 Discharge Summary Reason For Visit: UTI ALCOHOL DEPENDENCE ENCEPHALOPATHY Current Active Problems Abnormal liver function tests (Acute) Alcohol dependence (Acute 05/01/14) Common bile duct dilatation (Acute) Encephalopathy (Acute) Increased ammonia level (Acute) Condition: Stable - Instructions Diet, Activity, Other Instructions: You were hospitalized for confusion and disorientation caused by your liver disease. You have been treated with medications to control toxins in your blood. You are being discharged to [facility] for continued rehabilitation. You will additionally require outpatient followup with gastroenterology. A referral has been made on your behalf. Please keep an appointment within 2 weeks of your discharge. You have also been referred to our clinic for primary medical care. Please keep an appointment within 1 week of discharge. If you experience any chest pain, shortness of breath, fever, chills, confusion, sudden weakness or change in sensation, or any other new or concerning symptoms, please return to the Emergency Department. MEDICATION INSTRUCTIONS The following prescriptions have been sent to your pharmacy. Please take them exactly as directed: Lactulose: Take 4 times a day, increase or decrease dose until you are having 4 bowel movements daily Rifaximin: Take twice per day Lisinopril: Take once per day Toprol XL: Take once per day Thiamine: Take once per day Folic acid: Take once per day In addition, please return to your methadone clinic to resume methadone treatment. Referrals: Charanjit Victoria DO [Staff Physician] - 2 Weeks [facility] [place] [Provider Group] - 1 Week Disposition: TRANSFER ACUTE CARE/OTHER HOSP - Home Medications Comprehensive Discharge Medication List: Ambulatory Orders Folic Acid - 1 mg PO DAILY tablet 07/22/18 Lactulose (Oral Use) [Cephulac -] 20 gm PO QID udc 07/22/18 Lactulose (Oral Use) [Cephulac -] 20 gm PO QID #1 bottle 07/22/18 Lisinopril [Prinivil] 20 mg PO DAILY tablet 07/22/18 Lisinopril [Prinivil] 20 mg PO DAILY #30 tablet 07/22/18 Methadone [Dolophine -] 30 mg PO 0600 tablet MDD 30 07/22/18 Metoprolol Succinate [Toprol XL -] 25 mg PO DAILY tab.sr.24h 07/22/18 Metoprolol Succinate [Toprol Xl -] 25 mg PO DAILY #30 tab.sr.24h 07/22/18 Multivitamins [Multivit ([facility] Formulary)] 1 tab PO DAILY tab 07/22/18 Rifaximin [Xifaxan -] 550 mg PO BID tablet 07/22/18 Rifaximin [Xifaxan] 550 mg PO BID #60 tablet 07/22/18 Thiamine HCl [B-1] 100 mg PO DAILY #30 tablet 07/22/18 Thiamine HCl [Vitamin B1 -] 100 mg PO DAILY tablet 07/22/18 This patient is new to me today: No Emergency Visit: No Critical Care patient: No - Discharge Referral Referred to [facility] Yes Physician Referral: Dl Victoria DO (GI)
--- NOTE | 2018-07-22 16:34 | PN ---
Teaching Attending Note Name of Resident: Jonathan Enriquez ATTENDING PHYSICIAN STATEMENT I saw and evaluated the patient. I reviewed the resident's note and discussed the case with the resident. I agree with the resident's findings and plan as documented. SUBJECTIVE: No complaints. No abdominal pain/nausea/vomiting/diarrhea. No headache/fever/chills. OBJECTIVE: Afebrile, Hemodynamically Stable. AAO x 2-3. Last Vital Signs Temp Pulse Resp BP Pulse Ox 98.1 F 53 L 20 144/82 96 07/22/18 14:18 07/22/18 14:18 07/22/18 14:18 07/22/18 14:18 07/22/18 10:00 HEENT - Atraumatic, Normocephalic. Heart - S1, S2, RRR Lungs - clear to auscultation. Abdomen - Soft, non-tender. Bowel Sounds normal. Extremities - no calf tenderness. Laboratory Results - last 24 hr 07/20/18 07/20/18 07/22/18 00:06 00:06 06:00 WBC RBC Hgb Hct MCV MCH MCHC RDW Plt Count MPV Absolute Neuts (auto) Neutrophils % Neutrophils % (Manual) Band Neutrophils % Lymphocytes % Lymphocytes % (Manual) Monocytes % Monocytes % (Manual) Eosinophils % Eosinophils % (Manual) Basophils % Basophils % (Manual) Myelocytes % (Man) Promyelocytes % (Man) Blast Cells % (Manual) Nucleated RBC % Metamyelocytes Hypochromia Platelet Estimate Platelet Comment Polychromasia Poikilocytosis Anisocytosis Microcytosis Macrocytosis Spherocytes Target Cells Ovalocytes [place] Cells Acanthocytes (Spur) Fragmented RBCs Sodium 136 Potassium 3.9 Chloride 106 Carbon Dioxide 24 Anion Gap 6 L BUN 7 Creatinine 0.8 Creat Clearance w eGFR 99.29 Random Glucose 77 Calcium 8.0 L Phosphorus 3.0 Magnesium 1.0 L Total Bilirubin 2.1 H Direct Bilirubin 1.5 H GGT 187 H AST 131 H ALT 59 Alkaline Phosphatase 80 Ammonia Total Protein 7.0 Albumin 2.4 L Triglycerides 52 Cholesterol 132 Total LDL Cholesterol 65 HDL Cholesterol 56 Chlordiazepoxide 0.4 Norchlordiazepoxide 0.2 Nordiazepam None detected HCV Quantitation [id number] HCV RNA log copies/mL 5.493 07/22/18 07/22/18 07/22/18 07:00 07:00 13:00 WBC 3.2 L RBC 3.68 L Hgb 11.4 L Hct 34.0 L MCV 92.4 MCH 30.9 MCHC 33.4 RDW 14.4 Plt Count 54 L MPV 11.6 H Absolute Neuts (auto) 0.9 L Neutrophils % 29.5 L Neutrophils % (Manual) 36.0 L D Band Neutrophils % 0.0 Lymphocytes % 45.1 H Lymphocytes % (Manual) 43.0 H D Monocytes % 21.6 H Monocytes % (Manual) 18 H Eosinophils % 2.5 Eosinophils % (Manual) 3.0 Basophils % 1.3 Basophils % (Manual) 0.0 Myelocytes % (Man) 0 Promyelocytes % (Man) 0 Blast Cells % (Manual) 0 Nucleated RBC % 0 Metamyelocytes 0 Hypochromia 1+ Platelet Estimate Decreased Platelet Comment Present Polychromasia 0 Poikilocytosis 1+ Anisocytosis 1+ Microcytosis 1+ Macrocytosis 0 Spherocytes 1+ Target Cells 2+ Ovalocytes 1+ [place] Cells 1+ Acanthocytes (Spur) 1+ Fragmented RBCs 1+ Sodium Potassium Chloride Carbon Dioxide Anion Gap BUN Creatinine Creat Clearance w eGFR Random Glucose Calcium Phosphorus Magnesium 2.3 Total Bilirubin Direct Bilirubin GGT AST ALT Alkaline Phosphatase Ammonia 63.90 H Total Protein Albumin Triglycerides Cholesterol Total LDL Cholesterol HDL Cholesterol Chlordiazepoxide Norchlordiazepoxide Nordiazepam HCV Quantitation HCV RNA log copies/mL Discharge Medications Medication Instructions Recorded Folic Acid - 1 mg PO DAILY tablet 07/22/18 Lactulose (Oral Use) [Cephulac -] 20 gm PO QID udc 07/22/18 Lactulose (Oral Use) [Cephulac -] 20 gm PO QID #1 bottle 07/22/18 Lisinopril [Prinivil] 20 mg PO DAILY tablet 07/22/18 Lisinopril [Prinivil] 20 mg PO DAILY #30 tablet 07/22/18 Methadone [Dolophine -] 30 mg PO 0600 tablet MDD 30 07/22/18 Metoprolol Succinate [Toprol XL -] 25 mg PO DAILY tab.sr.24h 07/22/18 Metoprolol Succinate [Toprol Xl -] 25 mg PO DAILY #30 tab.sr.24h 07/22/18 Multivitamins [Multivit ([facility] 1 tab PO DAILY tab 07/22/18 Formulary)] Rifaximin [Xifaxan -] 550 mg PO BID tablet 07/22/18 Rifaximin [Xifaxan] 550 mg PO BID #60 tablet 07/22/18 Thiamine HCl [B-1] 100 mg PO DAILY #30 tablet 07/22/18 Thiamine HCl [Vitamin B1 -] 100 mg PO DAILY tablet 07/22/18 ASSESSMENT AND PLAN: 49 year old male with history of polysubstance abuse (alcohol, heroin, on methadone), Bipolar Disorder, Hepatitis C, GERD, Liver Cirrhosis, +PPD (treated) , sent from [facility] with confusion/altered mental status after completing his detox regimen. 1. Acute Hepatic Encephalopathy secondary to Alcoholic Liver Cirrhosis atop likely baseline Cognitive Dysfunction ?Dementia vs Korsakoff Syndrome AAO x 2-3. Mild Asterixis. Ammonia level elevated 63.9 CT Head - no acute intra-cranial findings. Continue Lactulose and Rifaximin RPR non-reactive, B12 normal. TSH 3.97 Thiamine supplementation 2. Liver Cirrhosis secondary to Alcohol excess +/- Hepatitis C TBil 2.1/DBil 1.5/AST 131 No evidence of SBP Continue MVI, Thiamine, Folic Acid Needs GI follow up and 6 monthly US and AFP levels. 3. Dilated CBD on Abdominal US - MRCP confirms Cirrhosis with paraesophageal and kyle-gastric varices with focal dilatation of pancreatic duct in head and body, s/p Cholecystectomy, CBD 1cm with no obvious filling defect. Further recommendations as per GI evaluation. Asymptomatic. No fever/chills/abdominal pain. 4. Polysusbstance Abuse s/p Detox at Former heroin user - continue on Methadone History of Alcohol excess - no further evidence of alcohol withdrawal. Addiction Consult for recommendations regarding substance abuse and possible transfer to . 5. UTI excluded - received 1 dose of Ceftriaxone - Urine Cx negative 6. Cerebrovascular Disease - Chronic Left Basilar Infarct on CT Head Will hold Aspirin/Statin given extensive varices on MRI and elevated LFTs. Lipid panel requested. 7. Hypoalbuminemia/Thrombocytopenia/Leukopenia secondary to Alcohol excess/ Cirrhosis/Hep C - Stable. Afebrile. No bleeding/bruising. 8. Hypomagnesemia - repleted. 9. HTN - Continue Lisinopril and Metoprolol. 10. Thrombocytopenia sec to Liver Cirrhosis - no bruising/bleeding. Medically Stable for discharge. No bed availability at . Patient agrees for discharge to [facility] with outpatient GI follow up. Has Methadone program.
== END 2018-07-22 15:51 | disposition short-term general hospital (02) | DRG 279 ==
LOC: JER 14:59 → J8W 19:25 → OBSVTOIN 07-22 09:29
PROVIDERS: ADMIT Internal Medicine
DX: K72.00 Acute and subacute hepatic failure without coma (principal); K70.31 Alcoholic cirrhosis of liver with ascites; D61.818 Other pancytopenia; E72.20 Disorder of urea cycle metabolism, unspecified; K83.8 Other specified diseases of biliary tract; K86.89 Other specified diseases of pancreas; E88.09 Other disorders of plasma-protein metabolism, not elsewhere classified; E83.42 Hypomagnesemia; F11.20 Opioid dependence, uncomplicated; K76.6 Portal hypertension; K71.3 Toxic liver disease with chronic persistent hepatitis; I86.4 Gastric varices; F13.230 Sedative, hypnotic or anxiolytic dependence with withdrawal, uncomplicated; F10.239 Alcohol dependence with withdrawal, unspecified; N39.0 Urinary tract infection, site not specified; B19.20 Unspecified viral hepatitis C without hepatic coma; I10 Essential (primary) hypertension; F31.9 Bipolar disorder, unspecified; F17.210 Nicotine dependence, cigarettes, uncomplicated; Z86.11 Personal history of tuberculosis
CPT/HCPCS: 36415; 70450-TC; 71045-TC-FY; 74181-TC; 76705-TC; 80048; 80053; 80061; 80076; 81003; 81015; 82140; 82248; 82607; 82746; 82962; 82977; 83540; 83550; 83690; 83721; 83735; 84100; 84443; 84484; 85025; 85044; 85610; 85651; 86140; 87040; 87086; 87389; 87522; 93005; 93010; 97116-GP; 97161-GP; 99284-25; G0378; G0480; J0735; J7030

== ENCOUNTER 2018-10-19 14:24 | Inpatient (IN) | payer OTHER ==
[2018-10-19 17:07] VITALS: BMI 21.4
--- NOTE | 2018-10-19 18:19 | HP ---
CIWA Score Nausea/Vomitin-Mild Nausea/No Vomiting Muscle Tremors: 2 Anxiety: 2 Agitation: 2 Paroxysmal Sweats: 1-Minimal Palms Moist Orientation: 1-Uncertain about Date Tacttile Disturbances: 0-None Auditory Disturbances: 1-Very Mild Visual Disturbances: 1-Very Mild Sensitivity Headache: 1-Very Mild CIWA-Ar Total Score: 12 - Admission Criteria OASAS Guidelines: Admission for Medically Managed Detox: Requires at least one of the followin. CIWA greater than 12 2. Seizures within the past 24 hours 3. Delirium tremens within the past 24 hours 4. Hallucinations within the past 24 hours 5. Acute intervention needed for co occurring medical disorder 6. Acute intervention needed for co occurring psychiatric disorder 7. Severe withdrawal that cannot be handled at a lower level of care (continued vomiting, continued diarrhea, abnormal vital signs) requiring intravenous medication and/or fluids 8. Patient presents the following: CIWA greater than 12 Admission Criteria Met: Admission criteria met Admission ROS S - HPI Chief Complaint: Withdrawal symptoms Allergies/Adverse Reactions: Allergies Allergy/AdvReac Type Severity Reaction Status Date / Time No Known Allergies Allergy Verified 10/19/18 16:48 History of Present Illness: 58 y.o. man with an extensive history of alcohol dependence is here for detox. His last completed detox on 07/16/18. He is currently enrolled in MMTP at [facility] and reports he was last medicated with 60mg of methadone today. Does not have a significant period of sobriety. Exam Limitations: No Limitations - Ebola screening Have you traveled outside of the country in the last 21 days: No (N) Have you had contact with anyone from an Ebola affected area: No Do you have a fever: No - Review of Systems Constitutional: No Symptoms Reported EENT: reports: Tearing Respiratory: reports: Cough, Shortness of Breath Cardiac: reports: No Symptoms Reported GI: reports: No Symptoms Reported : reports: Hematuria Musculoskeletal: reports: No Symptoms Reported Integumentary: reports: No Symptoms Reported Neuro: reports: Seizure (Last seizure was 5 months; ETOH induced.) Endocrine: reports: No Symptoms Reported Hematology: reports: No Symptoms Reported Psychiatric: reports: No Sypmtoms Reported Other Systems: Reviewed and Negative Patient History - Patient Medical History Hx Anemia: No Hx Asthma: No Hx Chronic Obstructive Pulmonary Disease (COPD): No Hx Cancer: No Hx Cardiac Disorders: No Hx Hypertension: No Hx Hypercholesterolemia: Yes HX Cerebrovascular Accident: No Hx Seizures: No Hx Diabetes: No Hx Gastrointestinal Disorders: No Hx Liver Disease: Yes (cirrhosis) Hx Genitourinary Disorders: No Hx Sexually Transmitted Disorders: No Hx Renal Disease (ESRD): No Hx Thyroid Disease: No Hx Human Immunodeficiency Virus (HIV): No (NEGATIVE HX) Hx Hepatitis C: Yes (not treated ) Hx Depression: Yes Hx Suicide Attempt: No Hx Bipolar Disorder: No Hx Schizophrenia: Yes (on meds) - Patient Surgical History Past Surgical History: No Hx Neurologic Surgery: No Hx Cataract Extraction: No Hx Cardiac Surgery: No Hx Lung Surgery: No Hx Breast Surgery: No Hx Breast Biopsy: No Hx Abdominal Surgery: No Hx Appendectomy: No Hx Cholecystectomy: No Hx Genitourinary Surgery: No Hx Section: No Hx Orthopedic Surgery: No Anesthesia Reaction: No - PPD History Date: 07/15/18 Results: CXR TBD PPD to be Administered?: No - Reproductive History Patient is a Female of Child Bearing Age (11 -55 yrs old): No - Smoking Cessation Smoking history: Current every day smoker Have you smoked in the past 12 months: Yes Aproximately how many cigarettes per day: 5 Hx Chewing Tobacco Use: No Initiated information on smoking cessation: Yes 'Breaking Loose' booklet given: 10/19/18 - Substance & Tx. History Hx Alcohol Use: Yes Hx Substance Use: No Substance Use Type: Alcohol Hx Substance Use Treatment: Yes (Detox: 07/2018) - Substances abused Alcohol Substance route: Oral Frequency: Daily Amount used: 2 pints Age of first use: 54 Date of last use: 10/18/18 Family Disease History - Family Disease History Family Disease History: Other: Father (ETOH DEPENDENT AND ), Mother (ETOH DEPENDENT AND ), Brother (four - living), Sister (one - living - HIV), Son ( two), Daughter (four) Admission Physical Exam S - Vital Signs Vital Signs: Vital Signs - 24 hr 10/19/18 17:01 Temperature 97.8 F Pulse Rate 101 H Respiratory 20 Rate Blood Pressure 170/100 - Physical General Appearance: Yes: Irritable, Anxious HEENTM: Yes: Hearing Decreased Respiratory: Yes: Lungs Clear, Normal Breath Sounds, No Respiratory Distress, No Accessory Muscle Use Neck: Yes: Within Normal Limits, No masses,lesions,Nodules Breast: Yes: Breast Exam Deferred Cardiology: Yes: Tachycardia Abdominal: Yes: Normal Bowel Sounds, Non Tender, Flat Genitourinary: Yes: Hematuria (Reports hematuria; awaiting U/A results.) Back: Yes: Normal Inspection Musculoskeletal: Yes: full range of Motion, Gait Steady, Pelvis Stable Extremities: Yes: Normal Inspection, Normal Range of Motion, Non-Tender Neurological: Yes: Alert, Normal Mood/Affect, Normal Response Integumentary: Yes: Normal Color, Dry, Warm Lymphatic: Yes: Within Normal Limits - Diagnostic (1) Alcoholic cirrhosis of liver Current Visit: Yes Status: Chronic (2) Alcohol dependence with uncomplicated withdrawal Current Visit: Yes Status: Chronic (3) Nicotine dependence Current Visit: Yes Status: Chronic Qualifiers: Nicotine product type: cigarettes Substance use status: in withdrawal Qualified Code(s): F17.213 - Nicotine dependence, cigarettes, with withdrawal (4) HTN (hypertension) Current Visit: Yes Status: Chronic Qualifiers: Hypertension type: essential hypertension Qualified Code(s): I10 - Essential (primary) hypertension (5) Hepatitis C Current Visit: Yes Status: Chronic Qualifiers: Viral hepatitis chronicity: chronic Hepatic coma status: without hepatic coma Qualified Code(s): B18.2 - Chronic viral hepatitis C (6) Opioid dependence on agonist therapy Current Visit: Yes Status: Chronic (7) History of seizures Current Visit: Yes Status: Acute Cleared for Admission S - Detox or Rehab [facility] Level of Care: Medically Managed (Ativan) Detox Regimen/Protocol: Not Applicable (On the Ativan detox protocol ) Breathalyzer - Breathalyzer Breathalyzer: 0 Urine Drug Screen - Test Device Lot number: [id number] Expiration date: 07/07/20 - Control Is test valid?: Yes - Results Urine drug screen results: MTD-Methadone, BZO-Benzodiazepines Inpatient Rehab Admission - Rehab Decision to Admit Inpatient rehab admission?: No
[2018-10-19] MEDS ORDERED: ONDANSETRON *ODT* 4 MG TABLET SL PRN (18:24)
[2018-10-19] MEDS ORDERED: METHOCARBAMOL 500 MG TABLET PO PRN (18:24)
[2018-10-19] MEDS ORDERED: hydrOXYzine PAMOATE 25 MG CAPSULE (FP) PO PRN (18:24)
[2018-10-19] MEDS ORDERED: ACETAMINOPHEN 325 MG TABLET (FP) PO PRN ×2 (18:24)
[2018-10-19] MEDS ORDERED: MAGNESIUM CITRATE 300 ML BOTTLE PO PRN (18:24)
[2018-10-19] MEDS ORDERED: BISMUTH SUBSALICYLATE 524 MG/30 ML UD PO PRN (18:24)
[2018-10-19] MEDS ORDERED: MAG HYDROX/AL HYDROX/SIMETH 30 ML UNIT-DOSE CUP PO PRN (18:24)
[2018-10-19] MEDS ORDERED: NICOTINE POLACRILEX 2 MG GUM BUC PRN (18:24)
[2018-10-19] MEDS ORDERED: MENTHOL/PHENOL 1 EACH UD MM PRN (18:24)
[2018-10-19] MEDS ORDERED: MAGNESIUM HYDROX 2400MG/30ML ORAL SUSPENSION 30 ML CUP PO PRN (18:24)
[2018-10-19] MEDS ORDERED: LORazepam 1 MG TABLET PO PRN (18:24)
[2018-10-19] MEDS ORDERED: LORazepam 2 MG TABLET PO ONE (19:00)
[2018-10-19] MEDS: ATORVASTATIN CA 20 MG TABLET (FP) PO SCH (21:21)
[2018-10-19] MEDS: traZODone HCL 50 MG TABLET (FP) PO PRN (21:21)
[2018-10-19] MEDS: MELATONIN 5 MG TABLETS PO PRN (21:24)
[2018-10-19] MEDS: amLODIPine BESYLATE 5 MG TABLET (FP) PO SCH (21:27)
[2018-10-19] MEDS: LORazepam 2 MG TABLET PO SCH (23:09)
[2018-10-19] MEDS: THIAMINE HCL 100 MG TABLET (FP) PO SCH (23:09)
[2018-10-20] MEDS: LORazepam 2 MG TABLET PO SCH ×3 (06:14→17:46)
[2018-10-20 10:04] LABS: ALBUMIN 2.7 g/dl (3.4-5.0); BILIRUBIN,TOTAL 1.8 mg/dL (0.2-1); BLOOD UREA NITROGEN 6.9 mg/dL (7-18); CALCIUM 8.9 mg/dL (8.5-10.1); CREATININE 0.9 mg/dL (0.55-1.3); POTASSIUM 3.9 mmol/L (3.5-5.1); TOT PROT 7.3 g/dl (6.4-8.2)
[2018-10-20 10:14] LABS: HEMOGLOBIN 10.8 GM/dL (11.7-16.9); MCH 29.2 pg (25.7-33.7); MCHC 32.7 g/dl (32.0-35.9); MEAN CELL VOLUME 89.2 fl (80-96); MEAN PLT VOLUME 12.2 fl (7.5-11.1); RDW 13.9 % (11.9-15.9); WHITE BLOOD COUNT 3.5 K/mm3 (4.0-10.0)
[2018-10-20 10:24] LABS: PLATELET COUNT 75 K/MM3 (134-434)
--- NOTE | 2018-10-20 10:32 | PN ---
[facility] CIWA - CIWA Score Nausea/Vomitin-No Nausea/No Vomiting Muscle Tremors: 3 Anxiety: 3 Agitation: 3 Paroxysmal Sweats: 2 Orientation: 0-Oriented Tacttile Disturbances: 0-None Auditory Disturbances: 0-None Visual Disturbances: 0-None Headache: 0-None Present CIWA-Ar Total Score: 11 S Progress Note (SOAP) Subjective: sweats anxiety Objective: 10/20/18 10:31 Vital Signs Temperature 99.5 F 10/20/18 09:37 Pulse Rate 91 H 10/20/18 09:37 Respiratory Rate 18 10/20/18 09:37 Blood Pressure 126/74 10/20/18 09:37 O2 Sat by Pulse Oximetry (%) Laboratory Tests 10/20/18 10/20/18 07:00 07:00 WBC 3.5 L RBC 3.70 L Hgb 10.8 L Hct 33.0 L MCV 89.2 MCH 29.2 MCHC 32.7 RDW 13.9 Plt Count 75 L D MPV 12.2 H Sodium 139 Potassium 3.9 Chloride 104 Carbon Dioxide 31 Anion Gap 4 L BUN 6.9 L Creatinine 0.9 Est GFR (CKD-EPI)AfAm 107.97 Est GFR (CKD-EPI)NonAf 93.16 Random Glucose 107 H Calcium 8.9 Total Bilirubin 1.8 H AST 120 H ALT 46 Alkaline Phosphatase 110 Total Protein 7.3 Albumin 2.7 L labs noted mildly anemic aaox3 ambulating no acute distress Assessment: 10/20/18 10:32 mild withdrawal sx Plan: continue detox increase fluids iron supplement ordered
[2018-10-20] MEDS: ASPIRIN 81 MG CHEWABLE TABLETS PO SCH (10:41)
[2018-10-20] MEDS: NICOTINE 14 MG/24 HOURS TOPICAL PATCH TD SCH (10:41)
[2018-10-20] MEDS: PRENATAL VITAMINS W/ FOLIC ACID TABLET (FP) PO SCH (10:42)
[2018-10-20] MEDS: amLODIPine BESYLATE 5 MG TABLET (FP) PO SCH (10:42)
[2018-10-20] MEDS: metoPROLOL SUCCINATE 25 MG TAB.SR.24H (FP) PO SCH (10:42)
[2018-10-20] MEDS: FOLIC ACID 1 MG TABLET (FP) PO SCH (10:45)
[2018-10-20] MEDS: FERROUS SO4 325 MG TABLET (FP) PO SCH ×2 (10:48→22:27)
--- NOTE | 2018-10-20 14:25 | CONSULT ---
[facility] Psychiatric Consult - Data Date of interview: 10/20/18 Admission source: [facility] Identifying data: Patient is a 58 year old but male, father of six, unemployed, homeless, and is supported by public assistance. This is patient's first admission to detox at [facility]. Patient admitted to for alcohol dependence. Substance Abuse History: Smoking Cessation. Smoking history: Current every day smoker. Have you smoked in the past 12 months: Yes. Aproximately how many cigarettes per day: 5. Hx Chewing Tobacco Use: No. Initiated information on smoking cessation: Yes. 'Breaking Loose' booklet given: 10/19/18. - Substance & Tx. History. Hx Alcohol Use: Yes. Hx Substance Use: No. Substance Use Type : Alcohol. Hx Substance Use Treatment: Yes (Detox: 07/2018). - Substances abused. Alcohol. Substance route: Oral. Frequency: Daily. Amount used: 2 pints. Age of first use: 54. Date of last use: 10/18/18 Medical History: Hep C, cirrhosis Psychiatric History: Patient presents as lethargic and mildly sedated. Mr. Manuel denies h/o psychiatric hospitalization, outpatient care, and suicide attempt. As per previous entries patient has reported h/o psychiatric hospitalizations and was prescribed risperdal. When asked about information noted on previous entries patient replied, "thats the past i don't take medications." As per external records patient is prescribed buspar 15m BID which he reports not taking. At present, patient refuses to accept psychotropic medications. No psychosis noted. Physical/Sexual Abuse/Trauma History: denies. Mental Status Exam - Mental Status Exam Alert and Oriented to: Time, Place, Person Cognitive Function: Fair Patient Appearance: Well Groomed Mood: Withdrawn Affect: Mood Congruent Patient Behavior: Sedated, Fatigued Speech Pattern: Delayed Voice Loudness: Moderately Soft/Quiet Thought Process: Goal Oriented Thought Disorder: Not Present Hallucinations: Denies Suicidal Ideation: Denies Homicidal Ideation: Denies Insight/Judgement: Poor Sleep: Fair Appetite: Fair Muscle strength/Tone: Normal Gait/Station: Normal Psychiatric Findings - Problem List (Supply 1, 2,3) (1) Substance induced mood disorder Current Visit: No Status: Acute (2) Alcohol dependence with uncomplicated withdrawal Current Visit: Yes Status: Chronic (3) Nicotine dependence Current Visit: Yes Status: Chronic Qualifiers: Nicotine product type: cigarettes Substance use status: in withdrawal Qualified Code(s): F17.213 - Nicotine dependence, cigarettes, with withdrawal - Initial Treatment Plan Initial Treatment Plan: Psychoeducation provided. Detoxification in progress. Observation.
[2018-10-20] MEDS ORDERED: METHADONE HCL 10 MG TABLET PO ONE (15:39)
[2018-10-20] MEDS ORDERED: METHADONE 40 MG, METHADONE 20 MG PO ONE (15:47)
[2018-10-20] MEDS ORDERED: METHADONE HCL 10 MG TABLET ONE (15:56)
[2018-10-20] MEDS ORDERED: METHADONE HCL 40 MG DISPERSABLE TABLET ONE (15:58)
[2018-10-20] MEDS: ATORVASTATIN CA 20 MG TABLET (FP) PO SCH (22:27)
[2018-10-20] MEDS: traZODone HCL 50 MG TABLET (FP) PO PRN (22:27)
[2018-10-20] MEDS: MELATONIN 5 MG TABLETS PO PRN (22:27)
[2018-10-20] MEDS: THIAMINE HCL 100 MG TABLET (FP) PO SCH (22:27)
[2018-10-20] MEDS: LORazepam 1 MG TABLET PO SCH (22:29)
[2018-10-21] MEDS: LORazepam 1 MG TABLET PO SCH ×3 (05:40→18:10)
[2018-10-21] MEDS ORDERED: METHADONE HCL 10 MG TABLET PO ONE (08:51)
[2018-10-21] MEDS ORDERED: METHADONE 40 MG, METHADONE 20 MG PO ONE (09:25)
[2018-10-21 10:00] LABS: BASO % 0.5 % (0-2.0); HEMATOCRIT 34.4 % (35.4-49); HEMOGLOBIN 11.1 GM/dL (11.7-16.9); LYMPH % 36.1 % (8-40); MCH 29.2 pg (25.7-33.7); MCHC 32.3 g/dl (32.0-35.9); MEAN CELL VOLUME 90.4 fl (80-96); MEAN PLT VOLUME 12.2 fl (7.5-11.1); MONO % 18.5 % (3.8-10.2); NEUT % 41.9 % (42.8-82.8); PLATELET COUNT 76 K/MM3 (134-434); RBC 3.81 M/mm3 (4.00-5.60); RDW 14.5 % (11.9-15.9); WHITE BLOOD COUNT 3.7 K/mm3 (4.0-10.0)
--- NOTE | 2018-10-21 10:40 | PN ---
S CIWA - CIWA Score Nausea/Vomitin-Mild Nausea/No Vomiting Muscle Tremors: 3 Anxiety: 2 Agitation: 1-Slight > Activity Paroxysmal Sweats: 3 Orientation: 0-Oriented Tacttile Disturbances: 1-Very Mild Itch/Numbness Auditory Disturbances: 0-None Visual Disturbances: 0-None Headache: 0-None Present CIWA-Ar Total Score: 11 S Progress Note (SOAP) Subjective: interrupted sleep, sweats, shakes Objective: 10/21/18 10:36 Vital Signs Temperature 96.8 F L 10/21/18 09:35 Pulse Rate 80 10/21/18 09:35 Respiratory Rate 17 10/21/18 09:35 Blood Pressure 126/75 10/21/18 09:35 O2 Sat by Pulse Oximetry (%) Laboratory Tests 10/20/18 10/20/18 10/20/18 07:00 07:00 07:00 WBC 3.5 L RBC 3.70 L Hgb 10.8 L Hct 33.0 L MCV 89.2 MCH 29.2 MCHC 32.7 RDW 13.9 Plt Count 75 L D MPV 12.2 H Absolute Neuts (auto) Neutrophils % Lymphocytes % Monocytes % Eosinophils % Basophils % Nucleated RBC % Sodium 139 Potassium 3.9 Chloride 104 Carbon Dioxide 31 Anion Gap 4 L BUN 6.9 L Creatinine 0.9 Est GFR (CKD-EPI)AfAm 107.97 Est GFR (CKD-EPI)NonAf 93.16 Random Glucose 107 H Calcium 8.9 Total Bilirubin 1.8 H AST 120 H ALT 46 Alkaline Phosphatase 110 Total Protein 7.3 Albumin 2.7 L RPR Titer Nonreactive 10/21/18 07:00 WBC 3.7 L RBC 3.81 L Hgb 11.1 L Hct 34.4 L MCV 90.4 MCH 29.2 MCHC 32.3 RDW 14.5 Plt Count 76 L MPV 12.2 H Absolute Neuts (auto) 1.5 Neutrophils % 41.9 L D Lymphocytes % 36.1 Monocytes % 18.5 H Eosinophils % 3.0 Basophils % 0.5 Nucleated RBC % 1 H Sodium Potassium Chloride Carbon Dioxide Anion Gap BUN Creatinine Est GFR (CKD-EPI)AfAm Est GFR (CKD-EPI)NonAf Random Glucose Calcium Total Bilirubin AST ALT Alkaline Phosphatase Total Protein Albumin RPR Titer pt lying in bed aox3 in nad mild tremor Assessment: 10/21/18 10:37 withdrawal sx's elevated sgot , t.bilirubin thrombocytopenia Plan: cont. detox increase fluids d/c tylenol repeat labs
[2018-10-21] MEDS: NICOTINE 14 MG/24 HOURS TOPICAL PATCH TD SCH (10:43)
[2018-10-21] MEDS: FERROUS SO4 325 MG TABLET (FP) PO SCH ×2 (10:44→22:50)
[2018-10-21] MEDS: PRENATAL VITAMINS W/ FOLIC ACID TABLET (FP) PO SCH (10:44)
[2018-10-21] MEDS: metoPROLOL SUCCINATE 25 MG TAB.SR.24H (FP) PO SCH (10:44)
[2018-10-21] MEDS: ASPIRIN 81 MG CHEWABLE TABLETS PO SCH (10:44)
[2018-10-21] MEDS: amLODIPine BESYLATE 5 MG TABLET (FP) PO SCH (10:44)
[2018-10-21] MEDS: ENALAPRIL MALEATE 10 MG TABLET (FP) PO SCH (10:45)
[2018-10-21] MEDS ORDERED: METHADONE HCL 40 MG DISPERSABLE TABLET ONE (10:50)
[2018-10-21] MEDS ORDERED: METHADONE HCL 10 MG TABLET ONE (10:50)
[2018-10-21] MEDS: FOLIC ACID 1 MG TABLET (FP) PO SCH (15:23)
[2018-10-21] MEDS: ATORVASTATIN CA 20 MG TABLET (FP) PO SCH (22:50)
[2018-10-21] MEDS: THIAMINE HCL 100 MG TABLET (FP) PO SCH (22:50)
[2018-10-21] MEDS ORDERED: LORazepam 0.5 MG TABLET PO PRN (23:00)
[2018-10-21] MEDS: LORazepam 0.5 MG TABLET PO SCH (23:25)
[2018-10-22] MEDS ORDERED: METHADONE HCL 40 MG DISPERSABLE TABLET ONE (05:44)
[2018-10-22] MEDS ORDERED: METHADONE HCL 10 MG TABLET ONE (05:44)
[2018-10-22] MEDS: METHADONE 40 MG, METHADONE 20 MG PO SCH (05:58)
[2018-10-22] MEDS: LORazepam 0.5 MG TABLET PO SCH ×4 (05:58→22:35)
[2018-10-22] MEDS ORDERED: METHADONE HCL 10 MG TABLET PO SCH (06:00)
[2018-10-22] MEDS: amLODIPine BESYLATE 5 MG TABLET (FP) PO SCH (10:24)
[2018-10-22] MEDS: metoPROLOL SUCCINATE 25 MG TAB.SR.24H (FP) PO SCH (10:24)
[2018-10-22] MEDS: ASPIRIN 81 MG CHEWABLE TABLETS PO SCH (10:24)
[2018-10-22] MEDS: NICOTINE 14 MG/24 HOURS TOPICAL PATCH TD SCH (10:25)
[2018-10-22] MEDS: PRENATAL VITAMINS W/ FOLIC ACID TABLET (FP) PO SCH (10:25)
[2018-10-22] MEDS: FERROUS SO4 325 MG TABLET (FP) PO SCH ×2 (10:26→22:35)
[2018-10-22] MEDS: ENALAPRIL MALEATE 10 MG TABLET (FP) PO SCH (10:26)
[2018-10-22 10:50] LABS: BILIRUBIN,TOTAL 1.4 mg/dL (0.2-1)
[2018-10-22 11:12] LABS: BASO % 1.9 % (0-2.0); EOS % 3.9 % (0-4.5); HEMATOCRIT 33.3 % (35.4-49); HEMOGLOBIN 10.8 GM/dL (11.7-16.9); LYMPH % 39.8 % (8-40); MCH 29.5 pg (25.7-33.7); MCHC 32.6 g/dl (32.0-35.9); MEAN CELL VOLUME 90.5 fl (80-96); MEAN PLT VOLUME 12.5 fl (7.5-11.1); MONO % 17.6 % (3.8-10.2); NEUT % 36.8 % (42.8-82.8); RBC 3.68 M/mm3 (4.00-5.60); RDW 14.5 % (11.9-15.9); WHITE BLOOD COUNT 3.3 K/mm3 (4.0-10.0)
[2018-10-22 11:32] LABS: PLATELET COUNT 74 K/MM3 (134-434)
--- NOTE | 2018-10-22 17:42 | PN ---
[facility] CIWA - CIWA Score Nausea/Vomitin-Mild Nausea/No Vomiting Muscle Tremors: 3 Anxiety: 3 Agitation: 0-Normal Activity Paroxysmal Sweats: 3 Orientation: 0-Oriented Tacttile Disturbances: 0-None Auditory Disturbances: 0-None Visual Disturbances: 0-None Headache: 0-None Present CIWA-Ar Total Score: 10 S Progress Note (SOAP) Subjective: sweats shakes Objective: 10/22/18 17:38 A & Ox 3 Not in acute distress Vital Signs Temperature 97.0 F L 10/22/18 14:56 Pulse Rate 91 H 10/22/18 14:56 Respiratory Rate 18 10/22/18 14:56 Blood Pressure 147/89 10/22/18 14:56 O2 Sat by Pulse Oximetry (%) Assessment: 10/22/18 17:43 withdrawal sx Plan: Continue detox
[2018-10-22] MEDS: THIAMINE HCL 100 MG TABLET (FP) PO SCH (22:35)
[2018-10-22] MEDS: ATORVASTATIN CA 20 MG TABLET (FP) PO SCH (22:35)
[2018-10-23] MEDS ORDERED: METHADONE HCL 10 MG TABLET ONE (05:21)
[2018-10-23] MEDS ORDERED: METHADONE HCL 40 MG DISPERSABLE TABLET ONE (05:21)
[2018-10-23] MEDS: METHADONE 40 MG, METHADONE 20 MG PO SCH (05:59)
[2018-10-23 06:36] VITALS: PULSE 67; TEMP 97.7
[2018-10-23 09:24] VITALS: BP 136/81
[2018-10-23] MEDS: metoPROLOL SUCCINATE 25 MG TAB.SR.24H (FP) PO SCH (10:17)
[2018-10-23] MEDS: PRENATAL VITAMINS W/ FOLIC ACID TABLET (FP) PO SCH (10:17)
[2018-10-23] MEDS: FERROUS SO4 325 MG TABLET (FP) PO SCH (10:17)
[2018-10-23] MEDS: ASPIRIN 81 MG CHEWABLE TABLETS PO SCH (10:17)
[2018-10-23] MEDS: amLODIPine BESYLATE 5 MG TABLET (FP) PO SCH (10:17)
[2018-10-23] MEDS: ENALAPRIL MALEATE 10 MG TABLET (FP) PO SCH (10:18)
[2018-10-23] MEDS: NICOTINE 14 MG/24 HOURS TOPICAL PATCH TD SCH (10:18)
--- NOTE | 2018-10-23 10:50 | DS ---
[facility] Detox Discharge Summary Admission Date: 10/19/18 Discharge Date: 10/23/18 - History Present History: Alcohol Dependence, MMTP - Physical Exam Results Vital Signs: Vital Signs Temperature 97.7 F 10/23/18 09:23 Pulse Rate 67 10/23/18 09:23 Respiratory Rate 16 10/23/18 09:23 Blood Pressure 136/81 10/23/18 09:23 O2 Sat by Pulse Oximetry (%) - Treatment Hospital Course: Detox Protocol Followed, Detoxed Safely, Responded well, Discharged Condition Good, Rehab Referral Accepted - Medication Discharge Medications: Ambulatory Orders Folic Acid - 1 mg PO DAILY tablet 07/22/18 Multivitamins [Multivit ([facility] Formulary)] 1 tab PO DAILY tab 07/22/18 Amlodipine Besylate [Norvasc -] 5 mg PO DAILY 07/26/18 Buspirone HCl [Buspar -] 15 mg PO BID 07/26/18 Enalapril Maleate [Vasotec] 20 mg PO DAILY 07/26/18 Methadone [Dolophine -] 60 mg PO 0600 MDD 30 07/26/18 Metoprolol Succinate [Toprol Xl] 25 mg PO DAILY 07/26/18 Thiamine Mononitrate [Vitamin B-1] 100 mg PO DAILY 07/26/18 traZODone HCL [Trazodone HCl] 150 mg PO HS 07/26/18 Aspirin [ASA -] 1 tablet PO DAILY 10/19/18 Atorvastatin Ca [Lipitor] 20 mg PO HS 10/19/18 - Diagnosis (1) History of seizures Current Visit: No Status: Suspected (2) Alcohol dependence with uncomplicated withdrawal Current Visit: Yes Status: Chronic (3) Alcoholic cirrhosis of liver Current Visit: Yes Status: Chronic Qualifiers: Ascites presence: unspecified Qualified Code(s): K70.30 - Alcoholic cirrhosis of liver without ascites (4) HTN (hypertension) Current Visit: Yes Status: Chronic Qualifiers: Hypertension type: essential hypertension Qualified Code(s): I10 - Essential (primary) hypertension (5) Hepatitis C Current Visit: Yes Status: Chronic Qualifiers: Viral hepatitis chronicity: chronic Hepatic coma status: without hepatic coma Qualified Code(s): B18.2 - Chronic viral hepatitis C (6) Nicotine dependence Current Visit: Yes Status: Chronic Qualifiers: Nicotine product type: cigarettes Substance use status: in withdrawal Qualified Code(s): F17.213 - Nicotine dependence, cigarettes, with withdrawal (7) Opioid dependence on agonist therapy Current Visit: Yes Status: Chronic (8) Abnormal liver function tests Current Visit: No Status: Acute (9) Alcohol abuse Current Visit: No Status: Acute (10) Alcohol dependence Current Visit: No Status: Acute Qualifiers: Substance use status: uncomplicated Qualified Code(s): F10.20 - Alcohol dependence, uncomplicated (11) Alcohol-induced mood disorder Current Visit: No Status: Acute (12) Alcohol-induced sleep disorder Current Visit: No Status: Acute (13) Closed left hand fracture Current Visit: No Status: Acute Qualifiers: Encounter type: subsequent encounter Fracture healing: with routine healing Qualified Code(s): S62.92XD - Unspecified fracture of left wrist and hand, subsequent encounter for fracture with routine healing (14) Common bile duct dilatation Current Visit: No Status: Acute (15) Encephalopathy Current Visit: No Status: Acute (16) Hypokalemia Current Visit: No Status: Acute (17) Increased ammonia level Current Visit: No Status: Acute (18) Liver enzyme elevation Current Visit: No Status: Acute (19) Otitis media Current Visit: No Status: Acute (20) Substance induced mood disorder Current Visit: No Status: Acute (21) Anxiety and depression Current Visit: No Status: Chronic (22) Bipolar disorder Current Visit: No Status: Chronic Qualifiers: Active/Remission status: remission status unspecified Qualified Code(s): F31.9 - Bipolar disorder, unspecified (23) Dyslipidemia Current Visit: No Status: Chronic (24) Methadone maintenance therapy patient Current Visit: No Status: Chronic (25) Methadone maintenance therapy patient Current Visit: No Status: Chronic
== END 2018-10-23 12:03 | disposition home or self-care (01) | DRG 773 ==
LOC: YASAS 14:24 → Y6N 18:50
PROVIDERS: ADMIT Surgery; ATTEND Surgery
PROC: HZ2ZZZZ Detoxification Services for Substance Abuse Treatment (ICD-10-PCS; principal; 2018-10-19)
DX: F10.230 Alcohol dependence with withdrawal, uncomplicated (principal); F11.20 Opioid dependence, uncomplicated; F10.24 Alcohol dependence with alcohol-induced mood disorder; F10.282 Alcohol dependence with alcohol-induced sleep disorder; F19.24 Other psychoactive substance dependence with psychoactive substance-induced mood disorder; F41.9 Anxiety disorder, unspecified; F31.9 Bipolar disorder, unspecified; D69.6 Thrombocytopenia, unspecified; E72.20 Disorder of urea cycle metabolism, unspecified; K70.30 Alcoholic cirrhosis of liver without ascites; E78.5 Hyperlipidemia, unspecified; I10 Essential (primary) hypertension; B18.2 Chronic viral hepatitis C; R94.5 Abnormal results of liver function studies; E87.6 Hypokalemia; G40.909 Epilepsy, unspecified, not intractable, without status epilepticus
CPT/HCPCS: 36415; 80053; 82247; 84450; 85025; 85027; 86593